=== PATIENT | female | born 1990 | race Caucasian/White ===

== ENCOUNTER → 2016-10-12 | Outpatient (CLI) | payer OTHER, BC ==
[2016-10-12 12:57] LABS: Basophils % (A) 1 %; CH 28.1; CHCM 34.5; Eosinophils # (A) 0.1 k/uL (0-0.7); Eosinophils % (A) 1 %; HCT 38.5 % (34.0-46.0); HDW 2.89; HGB 13.3 gm/dL (11.4-16.0); Luc # (Auto) 0.22; Luc % (Auto) 3; Lymphocytes # (A) 2.4 k/uL (1.0-4.8); Lymphocytes % (A) 35 %; MCH 28.1 pg (25.0-35.0); MCHC 34.4 g/dL (31.0-37.0); MCV 81.6 fL (80.0-100.0); Mean Platelet Volume 7.1; Monocytes # (A) 0.4 k/uL (0-1.0); Monocytes % (A) 5 %; Neutrophils # (A) 3.8 k/uL (1.3-7.7); Neutrophils % (A) 55 %; RBC 4.72 m/uL (3.80-5.40); RDW 13.4 % (11.5-15.5); WBC 6.9 k/uL (3.8-10.6); WBC (Perox) 6.96
[2016-10-12 13:51] LABS: C Reactive Protein 9.3 mg/L (<10.0)
[2016-10-12 14:11] LABS: Erythrocyte Sedimentation Rate 8 mm/hr (0-20)
[2016-10-12 19:35] LABS: ANA w/Reflex to Titer NEGATIVE (NEGATIVE)
[2016-10-13 04:06] LABS: Lyme Antibodies Total(IgG/IgM) 0.07 (<0.90)
[2016-10-13 15:48] LABS: C-ANCA <1:20 Titer (<1:20); P-ANCA <1:20 Titer (<1:20)
== END | disposition home or self-care (01) ==
LOC: LABWHC1 12:27
PROVIDERS: ATTEND Otolaryngology
DX: R51 Headache (principal); R53.83 Other fatigue; M54.2 Cervicalgia
CPT/HCPCS: 36415; 82306; 84439; 84443; 85025; 85652; 86038; 86140; 86255; 86618

== ENCOUNTER 2017-12-06 20:58 | Emergency (ER) | payer BC ==
[2017-12-06 21:16] VITALS: RESP 18
[2017-12-06] MEDS ORDERED: SODIUM CHLORIDE 0.9% 1,000 ML IV STA (21:49)
[2017-12-06] MEDS ORDERED: PANTOPRAZOLE 40 MG/10 ML VIAL IVP STA (21:55)
[2017-12-06] MEDS ORDERED: diphenhydrAMINE 50 MG/ML 1 ML VIAL IVP STA (21:55)
[2017-12-06] MEDS ORDERED: METOCLOPRAMIDE 5 MG/ML 2 ML VIAL IVP STA (21:55)
[2017-12-06] MEDS ORDERED: LORazepam 2 MG/ML INJ IV STA (21:59)
[2017-12-06] MEDS ORDERED: RX INFO: IV CONTRAST WAS GIVEN 1 EACH MISC MISCELLANE PRN (21:59)
--- NOTE | 2017-12-06 22:11 | ED ---
General Adult HPI - General Chief complaint: Dizziness Stated complaint: post op complications Time Seen by Provider: 12/06/17 21:18 Source: patient, RN notes reviewed, old records reviewed Mode of arrival: ambulatory Limitations: no limitations - History of Present Illness Initial comments: This is a 27-year-old female the ER with multiple complaints. Multiple nonspecific complaints stemming from recent surgery. 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 Patient is having increased worsening symptoms, surgery was about a week and 2:30 weeks ago. She is having difficulties with pain medications bowel movements anorexia decreased appetite since discharge. Patient resents ER today for evaluation of worsening vertigo worsening dizziness, ears ringing. - Related Data Home Medications Medication Instructions Recorded Confirmed ALPRAZolam [Xanax] 0.5 mg PO TID PRN 12/06/17 12/06/17 Cyclobenzaprine [Flexeril] 10 mg PO Q8H 12/06/17 12/06/17 Ibuprofen [Motrin] 800 mg PO TID PRN 12/06/17 12/06/17 Melatonin 5 mg PO HS PRN 12/06/17 12/06/17 Ondansetron [Zofran ODT] 8 mg PO Q8HR PRN 12/06/17 12/06/17 oxyCODONE-APAP 5-325MG [Percocet 1 tab PO Q4HR PRN 12/06/17 12/06/17 5-325 mg] Allergies Allergy/AdvReac Type Severity Reaction Status Date / Time erythromycin base Allergy Rash/Hives Verified 12/06/17 21:45 sulfamethoxazole Allergy Unknown Verified 12/06/17 21:45 [From Bactrim] trimethoprim [From Bactrim] Allergy Unknown Verified 12/06/17 21:45 hydrocodone bitartrate AdvReac Nausea & Verified 12/06/17 21:45 [From Vicodin] Vomiting Review of Systems ROS Statement: Those systems with pertinent positive or pertinent negative responses have been documented in the HPI. ROS Other: All systems not noted in ROS Statement are negative. Past Medical History Additional Past Medical History / Comment(s): chronic sinusitis History of Any Multi-Drug Resistant Organisms: None Reported Past Surgical History: Tonsillectomy Additional Past Surgical History / Comment(s): benign melanoma removed Past Psychological History: Anxiety Smoking Status: Never smoker Past Alcohol Use History: None Reported Past Drug Use History: None Reported General Exam Limitations: no limitations General appearance: alert, in no apparent distress Head exam: Present: atraumatic, normocephalic, normal inspection Eye exam: Present: normal appearance, PERRL, EOMI. Absent: scleral icterus, conjunctival injection, periorbital swelling ENT exam: Present: normal exam, mucous membranes moist Neck exam: Present: normal inspection. Absent: tenderness, meningismus, lymphadenopathy Respiratory exam: Present: normal lung sounds bilaterally. Absent: respiratory distress, wheezes, rales, rhonchi, stridor Cardiovascular Exam: Present: normal rhythm, tachycardia, normal heart sounds. Absent: systolic murmur, diastolic murmur, rubs, gallop, clicks GI/Abdominal exam: Present: soft, normal bowel sounds. Absent: distended, tenderness, guarding, rebound, rigid Extremities exam: Present: normal inspection, full ROM, normal capillary refill. Absent: tenderness, pedal edema, joint swelling, calf tenderness Back exam: Present: normal inspection Neurological exam: Present: alert, oriented X3, CN II-XII intact Psychiatric exam: Present: normal affect, normal mood Skin exam: Present: warm, dry, intact, normal color. Absent: rash Course Vital Signs 12/06/17 12/06/17 21:13 23:33 Temperature 98 F Pulse Rate 130 H 90 Respiratory 18 18 Rate Blood Pressure 97/75 102/64 O2 Sat by Pulse 98 100 Oximetry EKG Findings - EKG Comments: EKG Findings:: EKG shows normal sinus rhythm rate 99, [place] 120, QRS 70, QTc 472 Medical Decision Making - Lab Data Result diagrams: 12/06/17 22:06 12/06/17 22:06 Lab Results 12/06/17 12/06/17 12/06/17 Range/Units 22:06 22:06 22:06 WBC 14.0 H (3.8-10.6) k/uL RBC 5.05 (3.80-5.40) m/uL Hgb 14.1 (11.4-16.0) gm/dL Hct 42.1 (34.0-46.0) % MCV 83.4 (80.0-100.0) fL MCH 28.0 (25.0-35.0) pg MCHC 33.6 (31.0-37.0) g/dL RDW 13.3 (11.5-15.5) % Plt Count 301 (150-450) k/uL Neutrophils % 65 % Lymphocytes % 25 % Monocytes % 6 % Eosinophils % 2 % Basophils % 0 % Neutrophils # 9.1 H (1.3-7.7) k/uL Lymphocytes # 3.5 (1.0-4.8) k/uL Monocytes # 0.8 (0-1.0) k/uL Eosinophils # 0.3 (0-0.7) k/uL Basophils # 0.1 (0-0.2) k/uL PT (9.0-12.0) sec INR (<1.2) APTT (22.0-30.0) sec Sodium 139 (137-145) mmol/L Potassium 4.7 (3.5-5.1) mmol/L Chloride 97 L (98-107) mmol/L Carbon Dioxide 27 (22-30) mmol/L Anion Gap 15 mmol/L BUN 16 (7-17) mg/dL Creatinine 0.86 (0.52-1.04) mg/dL Est GFR (CKD-EPI)AfAm >90 (>60 ml/min/1.73 sqM) Est GFR (CKD-EPI)NonAf >90 (>60 ml/min/1.73 sqM) Glucose 89 (74-99) mg/dL Calcium 10.5 H (8.4-10.2) mg/dL Phosphorus 4.3 (2.5-4.5) mg/dL Magnesium 1.9 (1.6-2.3) mg/dL Total Bilirubin 0.4 (0.2-1.3) mg/dL AST 13 L (14-36) U/L ALT 29 (9-52) U/L Alkaline Phosphatase 74 (38-126) U/L Total Creatine Kinase 23 L (30-135) U/L CK-MB (CK-2) <0.2 (0.0-2.4) ng/mL CK-MB (CK-2) Rel Index Troponin I <0.012 (0.000-0.034) ng/mL Total Protein 7.7 (6.3-8.2) g/dL Albumin 4.5 (3.5-5.0) g/dL Urine Color Urine Appearance (Clear) Urine pH (5.0-8.0) Ur Specific [place] (1.001-1.035) Urine Protein (Negative) Urine Glucose (UA) (Negative) Urine Ketones (Negative) Urine Blood (Negative) Urine Nitrite (Negative) Urine Bilirubin (Negative) Urine Urobilinogen (<2.0) mg/dL Ur Leukocyte Esterase (Negative) 12/06/17 12/06/17 Range/Units 22:06 22:06 WBC (3.8-10.6) k/uL RBC (3.80-5.40) m/uL Hgb (11.4-16.0) gm/dL Hct (34.0-46.0) % MCV (80.0-100.0) fL MCH (25.0-35.0) pg MCHC (31.0-37.0) g/dL RDW (11.5-15.5) % Plt Count (150-450) k/uL Neutrophils % % Lymphocytes % % Monocytes % % Eosinophils % % Basophils % % Neutrophils # (1.3-7.7) k/uL Lymphocytes # (1.0-4.8) k/uL Monocytes # (0-1.0) k/uL Eosinophils # (0-0.7) k/uL Basophils # (0-0.2) k/uL PT 9.8 (9.0-12.0) sec INR 1.0 (<1.2) APTT 24.8 (22.0-30.0) sec Sodium (137-145) mmol/L Potassium (3.5-5.1) mmol/L Chloride (98-107) mmol/L Carbon Dioxide (22-30) mmol/L Anion Gap mmol/L BUN (7-17) mg/dL Creatinine (0.52-1.04) mg/dL Est GFR (CKD-EPI)AfAm (>60 ml/min/1.73 sqM) Est GFR (CKD-EPI)NonAf (>60 ml/min/1.73 sqM) Glucose (74-99) mg/dL Calcium (8.4-10.2) mg/dL Phosphorus (2.5-4.5) mg/dL Magnesium (1.6-2.3) mg/dL Total Bilirubin (0.2-1.3) mg/dL AST (14-36) U/L ALT (9-52) U/L Alkaline Phosphatase (38-126) U/L Total Creatine Kinase (30-135) U/L CK-MB (CK-2) (0.0-2.4) ng/mL CK-MB (CK-2) Rel Index Troponin I (0.000-0.034) ng/mL Total Protein (6.3-8.2) g/dL Albumin (3.5-5.0) g/dL Urine Color Light Yellow Urine Appearance Clear (Clear) Urine pH 7.5 (5.0-8.0) Ur Specific [place] 1.006 (1.001-1.035) Urine Protein Negative (Negative) Urine Glucose (UA) Negative (Negative) Urine Ketones Negative (Negative) Urine Blood Negative (Negative) Urine Nitrite Negative (Negative) Urine Bilirubin Negative (Negative) Urine Urobilinogen <2.0 (<2.0) mg/dL Ur Leukocyte Esterase Negative (Negative) Disposition Clinical Impression: Anxiety, Dizziness, Nausea & vomiting Disposition: HOME SELF-CARE Condition: Good Instructions: Dizziness (ED), Acute Nausea and Vomiting (ED) Is patient prescribed a controlled substance at d/c from ED?: No Referrals: Rogers Mcdonald DO [Primary Care Provider] - 1-2 days
[2017-12-06 22:19] LABS: Basophils # (A) 0.1 k/uL (0-0.2); Basophils % (A) 0 %; Eosinophils # (A) 0.3 k/uL (0-0.7); Eosinophils % (A) 2 %; HCT 42.1 % (34.0-46.0); HGB 14.1 gm/dL (11.4-16.0); Lymphocytes # (A) 3.5 k/uL (1.0-4.8); Lymphocytes % (A) 25 %; MCHC 33.6 g/dL (31.0-37.0); MCV 83.4 fL (80.0-100.0); Mean Platelet Volume 7.1; Monocytes # (A) 0.8 k/uL (0-1.0); Monocytes % (A) 6 %; Neutrophils # (A) 9.1 k/uL (1.3-7.7); Neutrophils % (A) 65 %; Platelet Count 301 k/uL (150-450); RBC 5.05 m/uL (3.80-5.40); RDW 13.3 % (11.5-15.5)
[2017-12-06 22:20] LABS: Appearance,Urine Clear (Clear); Bilirubin,Urine Negative (Negative); Blood,Urine Negative (Negative); Color,Urine Light Yellow; Glucose,Urine (UA) Negative (Negative); Ketones,Urine Negative (Negative); Leukocyte Esterase,Urine Negative (Negative); Nitrite,Urine Negative (Negative); PH, Urine 7.5 (5.0-8.0); Protein,Urine Negative (Negative); Specific Gravity,Urine 1.006 (1.001-1.035); Urobilinogen,Urine <2.0 mg/dL (<2.0)
[2017-12-06 22:30] LABS: Partial Thromboplastin Time 24.8 sec (22.0-30.0); Prothrombin Time 9.8 sec (9.0-12.0)
[2017-12-06 22:47] LABS: Creatine Kinase 23 U/L (30-135)
[2017-12-06 22:49] LABS: ALT 29 U/L (9-52); AST 13 U/L (14-36); Albumin 4.5 g/dL (3.5-5.0); Alkaline Phosphatase 74 U/L (38-126); Anion Gap 15 mmol/L; Blood Urea Nitrogen 16 mg/dL (7-17); Calcium 10.5 mg/dL (8.4-10.2); Carbon Dioxide 27 mmol/L (22-30); Chloride 97 mmol/L (98-107); Glucose 89 mg/dL (74-99); Magnesium 1.9 mg/dL (1.6-2.3); Phosphorus 4.3 mg/dL (2.5-4.5); Potassium 4.7 mmol/L (3.5-5.1); Sodium 139 mmol/L (137-145); Total Bilirubin 0.4 mg/dL (0.2-1.3); Total Protein 7.7 g/dL (6.3-8.2)
[2017-12-06 23:00] LABS: Creatine Kinase MB <0.2 ng/mL (0.0-2.4); Troponin I <0.012 ng/mL (0.000-0.034)
[2017-12-06] MEDS ORDERED: MORPHINE SULFATE 4 MG/ML SYRINGE IVP STA (23:13)
[2017-12-06 23:34] VITALS: PULSE 90
[2017-12-06] MEDS ORDERED: PROCHLORPERAZINE 10 MG TAB PO STA (23:44)
--- NOTE | 2017-12-07 | CT ---
EXAMINATION TYPE: CT angio head neck DATE OF EXAM: 12/06/2017 HISTORY: Post op changes for chiari malformation surgery. Head pressure and dizziness. COMPARISON: NONE CT DLP: 337.2 mGycm. Automated Exposure Control for Dose Reduction was Utilized. TECHNIQUE: CTA scan of the neck is performed with IV Contrast, patient injected with 65 mL of Isovue 370, axial images are obtained, coronal and sagittal reformatted images are reviewed. Three-D recons tructed images are created on an independent workstation and reviewed. FINDINGS: There is normal branching pattern of the great vessels on the aortic arch. There is bilateral arteria l flow in the vertebral arteries. There is arterial flow in the common internal and external carotid arteries bilaterally. The carotid artery bifurcations appear widely patent. There is occipital cranio peterson defect noted. There is arterial flow in the anterior middle and posterior cerebral arteries. There is no sign of an eurysm or neovascularity. There is normal contrast opacification of the venous sinuses. I see no evid ence of spasm. Impression normal CT angiogram of the neck. Normal CT angiogram of the brain.
--- NOTE | 2017-12-07 00:02 | CT ---
EXAMINATION TYPE: CT brain wo con DATE OF EXAM: 12/06/2017 COMPARISON: 05/09/2017 HISTORY: Post op changes for chiari malformation surgery. Head pressure and dizziness. CT DLP: 1047.2 mGycm. Automated Exposure Control for Dose Reduction was Utilized. TECHNIQUE: CT scan of the head is performed without contrast. FINDINGS: Ventricles and sulci appear normal. There is no mass effect nor midline shift. There is n o sign of intracranial hemorrhage. There is occipital craniotomy defect noted at the foramen magnum. There is no evidence of cerebral edema. IMPRESSION: Negative CT scan of the brain.
[2017-12-07 00:17] VITALS: BP 104/70; TEMP 98.5
== END 2017-12-07 00:30 | disposition home or self-care (01) ==
LOC: EC 20:58
DX: F41.9 Anxiety disorder, unspecified (principal); R42 Dizziness and giddiness; R11.2 Nausea with vomiting, unspecified; R00.0 Tachycardia, unspecified; H93.13 Tinnitus, bilateral; R63.0 Anorexia; Z79.899 Other long term (current) drug therapy; Z88.1 Allergy status to other antibiotic agents; Z88.5 Allergy status to narcotic agent; Z98.890 Other specified postprocedural states
CPT/HCPCS: 36415; 93005; 80053; 82550; 82553; 83735; 84100; 84484; 85025; 85610; 85730; 81003; 87086; 70496; 70450; 70498; 99285; 96374; 96375 ×4; 96361; S0183; J2060; J2270; J1200; J2765; C9113; Q9967

== ENCOUNTER 2018-03-26 13:25 | Observation (INO) | payer BC ==
[2018-03-26] MEDS ORDERED: ACETAMINOPHEN TAB 500 MG TAB PO STA (13:54)
[2018-03-26] MEDS ORDERED: IBUPROFEN 600 MG TAB PO STA (13:54)
[2018-03-26] MEDS ORDERED: IPRATROPIUM-ALBUTEROL 3 ML NEB INHALATION STA (13:54)
--- NOTE | 2018-03-26 13:57 | ED ---
General Adult HPI - General Chief complaint: Shortness of Breath Stated complaint: Tachycardia Time Seen by Provider: 03/26/18 13:49 Source: patient, EMS, RN notes reviewed Mode of arrival: EMS Limitations: no limitations - History of Present Illness Initial comments: Patient is a pleasant 27-year-old female presenting to the emergency department with cough and fever. Patient has had sinus drainage and minimal cough for the past several weeks. Patient started having more cough and fevers 2 days ago. Patient does have occasional green sputum. Patient does feel mildly short of breath. No leg pain or leg swelling. Patient has some discomfort near the diaphragm only with cough and she attributes this to her persistent cough. Patient did have surgery for Arnold-Chiari malformation several months ago. - Related Data Home Medications Medication Instructions Recorded Confirmed ALPRAZolam [Xanax] 0.5 mg PO TID PRN 12/06/17 03/26/18 Eucalyptus Oil/Menthol/Camphor 50 gm TOPICAL DAILY 03/26/18 03/26/18 [Vicks Vaporub Ointment] Fexofenadine HCl [Sarina Allergy] 60 mg PO BID 03/26/18 03/26/18 Fluticasone Nasal [place] [Flonase 1 spray EA NOSTRIL DAILY 03/26/18 03/26/18 Nasal [place]] Ibuprofen/Pseudoephedrine HCl 1 tab PO DAILY 03/26/18 03/26/18 [Advil Cold & Sinus Caplet] Multivitamins, Thera [Multivitamin 1 tab PO DAILY 03/26/18 03/26/18 (formulary)] diphenhydrAMINE [Benadryl] 25 mg PO DAILY PRN 03/26/18 03/26/18 Allergies Allergy/AdvReac Type Severity Reaction Status Date / Time erythromycin base Allergy Rash/Hives Verified 03/26/18 13:59 sulfamethoxazole Allergy Unknown Verified 03/26/18 13:59 [From Bactrim] trimethoprim [From Bactrim] Allergy Unknown Verified 03/26/18 13:59 hydrocodone bitartrate AdvReac Nausea & Verified 03/26/18 13:59 [From Vicodin] Vomiting Review of Systems ROS Statement: Those systems with pertinent positive or pertinent negative responses have been documented in the HPI. ROS Other: All systems not noted in ROS Statement are negative. Constitutional: Reports: fever Eyes: Denies: eye pain ENT: Reports: congestion. Denies: ear pain Respiratory: Reports: cough, dyspnea Cardiovascular: Denies: palpitations Endocrine: Reports: fatigue Gastrointestinal: Denies: vomiting Genitourinary: Denies: dysuria Musculoskeletal: Denies: back pain Skin: Denies: rash Neurological: Denies: weakness Past Medical History Additional Past Medical History / Comment(s): chronic sinusitis, chiari History of Any Multi-Drug Resistant Organisms: None Reported Past Surgical History: Tonsillectomy Additional Past Surgical History / Comment(s): benign melanoma removed Past Psychological History: Anxiety Smoking Status: Never smoker Past Alcohol Use History: None Reported Past Drug Use History: None Reported General Exam Limitations: no limitations General appearance: alert, in no apparent distress Head exam: Present: atraumatic Eye exam: Present: normal appearance, PERRL ENT exam: Present: normal oropharynx, other (Tenderness to the maxillary sinus) Neck exam: Present: other (Posterior upper neck incision clean and dry and intact.) Respiratory exam: Present: rhonchi Cardiovascular Exam: Present: tachycardia GI/Abdominal exam: Present: soft. Absent: tenderness Extremities exam: Present: normal inspection. Absent: pedal edema, calf tenderness Back exam: Present: normal inspection Neurological exam: Present: alert Psychiatric exam: Present: normal affect, normal mood Skin exam: Present: normal color Course Vital Signs 03/26/18 03/26/18 03/26/18 13:26 14:11 14:19 Temperature 101 F H Pulse Rate 123 H 120 H 124 H Respiratory 20 Rate Blood Pressure 127/68 O2 Sat by Pulse 95 Oximetry 03/26/18 15:25 Temperature 99.3 F Pulse Rate 115 H Respiratory 18 Rate Blood Pressure 112/69 O2 Sat by Pulse 99 Oximetry - Reevaluation(s) Reevaluation #1: 03/26/18 15:52 Patient does meet sepsis criteria diagnosed at 1552. Blood culture and lactic acid and IV antibiotics have been ordered. EKG Findings - EKG Comments: EKG Findings:: Sinus tachycardia 123. VA 100. QRS 94. QT 320. QTc 458. Normal axis. Incomplete right bundle branch block. No acute ST change. Medical Decision Making - Medical Decision Making Patient reevaluated and resting comfortably in bed. Heart rate has improved to 1:15. Patient family updated on results and plan. Case was discussed with Dr. patiño, who will admit for Dr. Gilliam - Lab Data Result diagrams: 03/26/18 02:00 03/26/18 02:00 Lab Results 03/26/18 03/26/18 03/26/18 Range/Units 02:00 02:00 02:00 WBC 10.5 (3.8-10.6) k/uL RBC 4.89 (3.80-5.40) m/uL Hgb 13.3 (11.4-16.0) gm/dL Hct 39.4 (34.0-46.0) % MCV 80.6 (80.0-100.0) fL MCH 27.3 (25.0-35.0) pg MCHC 33.9 (31.0-37.0) g/dL RDW 14.2 (11.5-15.5) % Plt Count 253 (150-450) k/uL Neutrophils % 84 % Lymphocytes % 9 % Monocytes % 4 % Eosinophils % 2 % Basophils % 0 % Neutrophils # 8.9 H (1.3-7.7) k/uL Lymphocytes # 0.9 L (1.0-4.8) k/uL Monocytes # 0.4 (0-1.0) k/uL Eosinophils # 0.2 (0-0.7) k/uL Basophils # 0.0 (0-0.2) k/uL PT 10.2 (9.0-12.0) sec INR 1.0 (<1.2) APTT 26.8 (22.0-30.0) sec D-Dimer 0.69 H (<0.60) mg/L FEU Sodium 139 (137-145) mmol/L Potassium 4.3 (3.5-5.1) mmol/L Chloride 105 (98-107) mmol/L Carbon Dioxide 23 (22-30) mmol/L Anion Gap 11 mmol/L BUN 7 (7-17) mg/dL Creatinine 0.63 (0.52-1.04) mg/dL Est GFR (CKD-EPI)AfAm >90 (>60 ml/min/1.73 sqM) Est GFR (CKD-EPI)NonAf >90 (>60 ml/min/1.73 sqM) Glucose 90 (74-99) mg/dL POC Glucose (mg/dL) (75-99) mg/dL POC Glu Flame Cutting Supervisor ID Plasma Lactic Acid Nikolai (0.7-2.0) mmol/L Calcium 9.3 (8.4-10.2) mg/dL Total Bilirubin 0.4 (0.2-1.3) mg/dL AST 14 (14-36) U/L ALT 35 (9-52) U/L Alkaline Phosphatase 80 (38-126) U/L Total Protein 7.6 (6.3-8.2) g/dL Albumin 4.3 (3.5-5.0) g/dL 03/26/18 03/26/18 Range/Units 02:00 14:44 WBC (3.8-10.6) k/uL RBC (3.80-5.40) m/uL Hgb (11.4-16.0) gm/dL Hct (34.0-46.0) % MCV (80.0-100.0) fL MCH (25.0-35.0) pg MCHC (31.0-37.0) g/dL RDW (11.5-15.5) % Plt Count (150-450) k/uL Neutrophils % % Lymphocytes % % Monocytes % % Eosinophils % % Basophils % % Neutrophils # (1.3-7.7) k/uL Lymphocytes # (1.0-4.8) k/uL Monocytes # (0-1.0) k/uL Eosinophils # (0-0.7) k/uL Basophils # (0-0.2) k/uL PT (9.0-12.0) sec INR (<1.2) APTT (22.0-30.0) sec D-Dimer (<0.60) mg/L FEU Sodium (137-145) mmol/L Potassium (3.5-5.1) mmol/L Chloride (98-107) mmol/L Carbon Dioxide (22-30) mmol/L Anion Gap mmol/L BUN (7-17) mg/dL Creatinine (0.52-1.04) mg/dL Est GFR (CKD-EPI)AfAm (>60 ml/min/1.73 sqM) Est GFR (CKD-EPI)NonAf (>60 ml/min/1.73 sqM) Glucose (74-99) mg/dL POC Glucose (mg/dL) 99 (75-99) mg/dL POC Glu Flame Cutting Supervisor Mauro Ni Plasma Lactic Acid Nioklai 1.0 (0.7-2.0) mmol/L Calcium (8.4-10.2) mg/dL Total Bilirubin (0.2-1.3) mg/dL AST (14-36) U/L ALT (9-52) U/L Alkaline Phosphatase (38-126) U/L Total Protein (6.3-8.2) g/dL Albumin (3.5-5.0) g/dL - Radiology Data Radiology results: report reviewed (Computed tomography scan of the chest shows no pulmonary embolism. There is mediastinal and bronchial adenopathy. Possible sarcoid. Mild reticular nodular left upper lobe infiltrate.) Critical Care Time Critical Care Time: Yes Total Critical Care Time: 33 Disposition Clinical Impression: Pneumonia, Sepsis Disposition: ADMITTED IP TO THIS HOSP Is patient prescribed a controlled substance at d/c from ED?: No Referrals: Rogers Mcdonald DO [Primary Care Provider] - 1-2 days Decision Time: 15:52
[2018-03-26] MEDS: SODIUM CHLORIDE 0.9% 500 ML IV SCH ×2 (14:02→14:05)
[2018-03-26 14:04] LABS: Basophils % (A) 0 %; Eosinophils # (A) 0.2 k/uL (0-0.7); Eosinophils % (A) 2 %; HCT 39.4 % (34.0-46.0); HGB 13.3 gm/dL (11.4-16.0); Lymphocytes # (A) 0.9 k/uL (1.0-4.8); Lymphocytes % (A) 9 %; MCH 27.3 pg (25.0-35.0); MCHC 33.9 g/dL (31.0-37.0); MCV 80.6 fL (80.0-100.0); Mean Platelet Volume 7.1; Monocytes # (A) 0.4 k/uL (0-1.0); Monocytes % (A) 4 %; Neutrophils # (A) 8.9 k/uL (1.3-7.7); Neutrophils % (A) 84 %; Platelet Count 253 k/uL (150-450); RBC 4.89 m/uL (3.80-5.40); RDW 14.2 % (11.5-15.5); WBC 10.5 k/uL (3.8-10.6)
[2018-03-26 14:14] LABS: ALT 35 U/L (9-52); AST 14 U/L (14-36); Albumin 4.3 g/dL (3.5-5.0); Alkaline Phosphatase 80 U/L (38-126); Anion Gap 11 mmol/L; Blood Urea Nitrogen 7 mg/dL (7-17); Calcium 9.3 mg/dL (8.4-10.2); Carbon Dioxide 23 mmol/L (22-30); Chloride 105 mmol/L (98-107); Glucose 90 mg/dL (74-99); Potassium 4.3 mmol/L (3.5-5.1); Sodium 139 mmol/L (137-145); Total Bilirubin 0.4 mg/dL (0.2-1.3); Total Protein 7.6 g/dL (6.3-8.2)
[2018-03-26 14:25] LABS: Partial Thromboplastin Time 26.8 sec (22.0-30.0); Prothrombin Time 10.2 sec (9.0-12.0)
[2018-03-26 14:43] LABS: D-Dimer 0.69 mg/L FEU (<0.60)
[2018-03-26 14:48] LABS: Glucose,Whole Blood 99 mg/dL (75-99)
--- NOTE | 2018-03-26 15:35 | CT ---
EXAMINATION TYPE: CT angio chest DATE OF EXAM: 03/26/2018 3:22 PM COMPARISON: HISTORY: tachycardia CT DLP: 377.6 mGycm Automated exposure control for dose reduction was used. CONTRAST: CTA scan of the thorax is performed with IV Contrast, patient injected with 100mL mL of Isovue 370, p ulmonary embolism protocol. There are 3-D post processed images.. FINDINGS: There is some nodular 3 cm patch of infiltrate in the left upper lobe. There is no evidence of a pulm onary mass. There is no pleural effusion. Heart size is normal. There is no pericardial effusion. Tho racic aorta appears normal. There is no evidence of aneurysm or dissection. I see no filling defects in the pulmonary arteries. There are some mediastinal and bronchial lymph nodes measure up to 2 cm. The bony thorax is intact. There is no sign of axillary adenopathy. IMPRESSION: NO EVIDENCE OF PULMONARY EMBOLISM. MILD MEDIASTINAL AND BRONCHIAL ADENOPATHY. THIS COULD RELATE TO SA RCOIDOSIS. THERE IS A MILD RETICULAR NODULAR LEFT UPPER LOBE PULMONARY INFILTRATE.
[2018-03-26] MEDS ORDERED: PNEUMONIA PROTOCOL UTILIZED 1 EACH MISC PO PRN (15:53)
[2018-03-26] MEDS ORDERED: LEVOFLOXACIN 750MG-D5W PMX 750 MG in DEXTROSE/WATER 1 150ML.BAG IVPB STA (15:53)
[2018-03-26 16:13] LABS: Amorphous Sediment,Urine Rare /hpf; Appearance,Urine Clear (Clear); Bacteria,Urine Few /hpf; Bilirubin,Urine Negative (Negative); Blood,Urine Trace (Negative); Color,Urine Yellow; Glucose,Urine (UA) Negative (Negative); Ketones,Urine Trace (Negative); Leukocyte Esterase,Urine Negative (Negative); Mucus,Urine Rare /hpf; Nitrite,Urine Negative (Negative); PH, Urine 6.5 (5.0-8.0); Protein,Urine Negative (Negative); RBC,Urine 1 /hpf (0-5); Squamous Epithelial Cell,Urine 6 /hpf (0-4); Urobilinogen,Urine <2.0 mg/dL (<2.0); WBC,Urine 1 /hpf (0-5)
[2018-03-26] MEDS: SODIUM CHLORIDE 0.9% 1,000 ML IV SCH (16:14)
[2018-03-26 16:46] VITALS: BMI 36.6
--- NOTE | 2018-03-26 17:18 | P.HPIM ---
History of Present Illness This is a pleasant 27 years old female with past medical history of chronic sinusitis, GERD surgery at [facility] on last November. Presents because of cough and fever. 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 And associated with chest pain that is central, describe it as dull comes mainly with coughing mild to moderate in severity. Patient not really dyspneic and she is saturating 100% on 2 L oxygen via nasal cannula In the emergency room patient was noted to be tachycardic at 120, fever at 101. With no leukocytosis and WBC at 10.5 K. Rest of the CBC and BMP was unremarkable. UA was not suggestive of infection and she had elevated d-dimer. With computed tomography scan of the chest with angiogram showing no PE with 3 cm left upper lobe infiltrate. With mediastinal lymphadenopathy up to 2 cm. Suspicious for sarcoidosis as per radiology report. In the emergency room patient was got IV fluids and was started on Levaquin antibiotic. Review of Systems CONSTITUTIONAL: No fever, no malaise, no fatigue. HEENT: No recent visual problems or hearing problems. Denied any sore throat. CARDIOVASCULAR: No orthopnea, PND, no palpitations, no syncope. PULMONARY: No shortness of breath, no cough, no hemoptysis. GASTROINTESTINAL: No diarrhea, no nausea, no vomiting, no abdominal pain. Normoactive bowel sounds. NEUROLOGICAL: No headaches, no weakness, no numbness. HEMATOLOGICAL: Denies any bleeding or petechiae. GENITOURINARY: Denies any burning micturition, frequency, or urgency. MUSCULOSKELETAL/RHEUMATOLOGICAL: Denies any joint pain, swelling, or any muscle pain. ENDOCRINE: Denies any polyuria or polydipsia. Past Medical History Additional Past Medical History / Comment(s): chronic sinusitis, chiari History of Any Multi-Drug Resistant Organisms: None Reported Past Surgical History: Tonsillectomy Additional Past Surgical History / Comment(s): benign melanoma removed. Chiari surgery in November at [place] Past Anesthesia/Blood Transfusion Reactions: No Reported Reaction Past Psychological History: Anxiety Smoking Status: Never smoker Past Alcohol Use History: None Reported Past Drug Use History: None Reported - Past Family History Mother Family Medical History: No Reported History Father Family Medical History: No Reported History Medications and Allergies Home Medications Medication Instructions Recorded Confirmed Type ALPRAZolam [Xanax] 0.5 mg PO TID PRN 12/06/17 03/26/18 History Eucalyptus Oil/Menthol/Camphor 50 gm TOPICAL DAILY 03/26/18 03/26/18 History [Vicks Vaporub Ointment] Fexofenadine HCl [Sarina Allergy] 60 mg PO BID 03/26/18 03/26/18 History Fluticasone Nasal [place] [Flonase 1 spray EA NOSTRIL DAILY 03/26/18 03/26/18 History Nasal [place]] Ibuprofen/Pseudoephedrine HCl 1 tab PO DAILY 03/26/18 03/26/18 History [Advil Cold & Sinus Caplet] Multivitamins, Thera [Multivitamin 1 tab PO DAILY 03/26/18 03/26/18 History (formulary)] diphenhydrAMINE [Benadryl] 25 mg PO DAILY PRN 03/26/18 03/26/18 History Allergies Allergy/AdvReac Type Severity Reaction Status Date / Time sulfamethoxazole Allergy Severe mouth sores Verified 03/26/18 16:51 [From Bactrim] trimethoprim [From Bactrim] Allergy Severe mouth sores Verified 03/26/18 16:51 erythromycin base Allergy Unknown Rash/Hives Verified 03/26/18 16:51 amoxicillin [From Augmentin] AdvReac Severe Abdominal Verified 03/26/18 16:51 Pain clavulanic acid AdvReac Severe Abdominal Verified 03/26/18 16:51 [From Augmentin] Pain hydrocodone bitartrate AdvReac Severe Nausea & Verified 03/26/18 16:51 [From Vicodin] Vomiting promethazine [From Phenergan] AdvReac Intermediate Abdominal Verified 03/26/18 16:51 Pain Physical Exam Vitals: Vital Signs Temp Pulse Pulse Resp BP BP Pulse Ox 03/26/18 16:47 98.6 F 104 H 18 113/70 100 03/26/18 16:35 98.3 F 110 H 18 110/80 97 03/26/18 15:25 99.3 F 115 H 18 112/69 99 03/26/18 14:19 124 H 03/26/18 14:11 120 H 03/26/18 13:26 101 F H 123 H 20 127/68 95 Intake and Output 03/26/18 03/26/18 03/26/18 06:59 14:59 22:59 Other: Weight 97.522 kg 99.9 kg GENERAL: The patient is alert and oriented x3, not in any acute distress. Well developed, well nourished. HEENT: Pupils are round and equally reacting to light. EOMI. No scleral icterus. No conjunctival pallor. Normocephalic, atraumatic. No pharyngeal erythema. No thyromegaly. CARDIOVASCULAR: S1 and S2 present. No murmurs, rubs, or gallops. -PULMONARY: Chest is clear to auscultation, no crackles. Left upper scattered wheezing ABDOMEN: Soft, nontender, nondistended, normoactive bowel sounds. No palpable organomegaly. MUSCULOSKELETAL: No joint swelling or deformity. EXTREMITIES: No cyanosis, clubbing, or pedal edema. NEUROLOGICAL: Gross neurological examination did not reveal any focal deficits. SKIN: No rashes. Results CBC & Chem 7: 03/26/18 02:00 03/26/18 02:00 Labs: Abnormal Lab Results - Last 24 Hours (Table) 03/26/18 03/26/18 03/26/18 Range/Units 02:00 02:00 15:10 Neutrophils # 8.9 H (1.3-7.7) k/uL Lymphocytes # 0.9 L (1.0-4.8) k/uL D-Dimer 0.69 H (<0.60) mg/L FEU Urine Ketones Trace H (Negative) Urine Blood Trace H (Negative) Ur Squamous Epith Cells 6 H (0-4) /hpf Amorphous Sediment Rare H (None) /hpf Urine Bacteria Few H (None) /hpf Urine Mucus Rare H (None) /hpf Assessment and Plan Assessment: Community-acquired pneumonia Systemic inflammatory response with fever and tachycardia, 2/4 Sepsis secondary to above Mediastinal lymphadenopathy, suspicious for sarcoidosis History of Chiari surgery Plan: This is a pleasant 27 years old lady who presents because of cough and fever. Continue with same treatment. Continue with symptomatic treatment. Follow-up culture results. Continue with antibiotics and IV fluids. Call pulmonary consult. Resume home medication. Monitor labs and vitals. Influenza swab. sputum culture DVT and GI prophylaxis. Pain management. Further recommendations based on the clinical course of the patient. DVT prophylaxis subcutaneous heparin GI prophylaxis Pepcid Prognosis is guarded Succuss with staff including recommendations
[2018-03-26] MEDS ORDERED: guaiFENesin SYRUP 100MG/5ML 200 MG/10 ML CUP PO PRN (18:07)
[2018-03-26] MEDS: ACETAMINOPHEN TAB 325 MG TAB PO PRN (18:09)
[2018-03-26] MEDS: FAMOTIDINE 20 MG/2 ML VIAL IV SCH (18:47)
[2018-03-26] MEDS: IPRATROPIUM-ALBUTEROL 3 ML NEB INHALATION PRN (20:05)
[2018-03-26] MEDS: LORATADINE 10 MG TAB PO SCH (21:05)
[2018-03-26] MEDS: HEPARIN SODIUM,PORCINE 5,000 UNIT/ML 1 ML VIAL SQ SCH (21:13)
[2018-03-26] MEDS: KETOROLAC 30 MG/ML 1 ML VIAL IVP PRN (23:18)
[2018-03-27] MEDS: guaiFENesin SYRUP 100MG/5ML 200 MG/10 ML CUP PO PRN ×3 (01:18→21:35)
[2018-03-27] MEDS: SODIUM CHLORIDE 0.9% 1,000 ML IV SCH ×2 (03:14→22:10)
[2018-03-27] MEDS: KETOROLAC 30 MG/ML 1 ML VIAL IVP PRN ×3 (05:55→18:06)
[2018-03-27 07:20] LABS: Basophils % (A) 0 %; Eosinophils # (A) 0.2 k/uL (0-0.7); Eosinophils % (A) 4 %; HGB 11.9 gm/dL (11.4-16.0); Lymphocytes # (A) 1.1 k/uL (1.0-4.8); Lymphocytes % (A) 22 %; MCH 26.9 pg (25.0-35.0); MCHC 33.2 g/dL (31.0-37.0); Mean Platelet Volume 7.4; Monocytes # (A) 0.5 k/uL (0-1.0); Monocytes % (A) 9 %; Neutrophils # (A) 3.2 k/uL (1.3-7.7); Neutrophils % (A) 62 %; Platelet Count 228 k/uL (150-450); RBC 4.45 m/uL (3.80-5.40); RDW 14.2 % (11.5-15.5); WBC 5.1 k/uL (3.8-10.6)
[2018-03-27] MEDS: IPRATROPIUM-ALBUTEROL 3 ML NEB INHALATION PRN ×3 (07:32→19:13)
[2018-03-27 07:33] LABS: Anion Gap 10 mmol/L; Blood Urea Nitrogen 6 mg/dL (7-17); Calcium 8.6 mg/dL (8.4-10.2); Carbon Dioxide 21 mmol/L (22-30); Chloride 110 mmol/L (98-107); Glucose 94 mg/dL (74-99); Potassium 4.2 mmol/L (3.5-5.1); Sodium 141 mmol/L (137-145)
[2018-03-27] MEDS: HEPARIN SODIUM,PORCINE 5,000 UNIT/ML 1 ML VIAL SQ SCH ×2 (07:48→20:47)
[2018-03-27] MEDS: FAMOTIDINE 20 MG/2 ML VIAL IV SCH ×2 (07:54→20:46)
[2018-03-27] MEDS: LORATADINE 10 MG TAB PO SCH (07:55)
--- NOTE | 2018-03-27 08:53 | XR ---
EXAMINATION TYPE: XR chest 2V DATE OF EXAM: 03/27/2018 COMPARISON: NONE TECHNIQUE: PA and lateral views submitted. HISTORY: Pneumonia FINDINGS: Left upper lobe area of consolidation noted. Left suprahilar region prominent may represent adenopath y. No pneumothorax. No overt failure or pleural effusion. Heart size normal. IMPRESSION: 1. Left upper lobe infiltrate correlate for hilar adenopathy
[2018-03-27] MEDS: ACETAMINOPHEN TAB 325 MG TAB PO PRN ×3 (09:16→21:35)
[2018-03-27] MEDS ORDERED: ALPRAZolam 0.5 MG TAB PO PRN (12:07)
--- NOTE | 2018-03-27 12:10 | P.CNPUL ---
History of Present Illness Consult date: 03/27/18 Requesting physician: Torsten Rossi Reason for consult: pneumonia Chief complaint: Shortness of breath and rapid heartbeat History of present illness: This is a 27-year-old female with history of Arnold chiari malformation, had surgery at [facility] for her malformation few months ago. Her postoperative course was relatively uneventful. Patient had no specific complications from her surgery. She was seen in the walk-in clinic yesterday with almost few weeks history of cough, nasal congestion, intermittent episodes of headaches, and felt that she was coming down with a cold that seems to have lasted longer than expected. Recently the patient has been spiking fevers, and her temp was 101. Her cough was productive with brownish phlegm, and felt some vague chest discomfort. Described as dull discomfort over the sternal area. This was worse with coughing. Patient was seen in the walk-in clinic and she was noted to be tachycardic, patient was in sinus tachycardia. Her rate was apparently 120 she had a temp of 101, and her WBC count was only 10.5. Patient was sent to the ER, CT angiogram of the chest showed left upper lobe infiltrate , it was noted to be nodular, some nonspecific mediastinal and bronchial lymph nodes were noted hence the differential diagnoses of reactive lymphadenopathy or sarcoidosis was considered, patient was admitted and this consult was initiated. Patient isn't ready feeling slightly better compared to how she felt yesterday, her heart rate seems to be well-controlled. Temp has been 98.4 at maximal and her cough symptoms as well as shortness of breath symptoms are slightly better. Patient had no previous history of sarcoidosis, no previous history of lymphoma, and the only past medical history is significant for her recent surgery back in November for arnold chiari malformation. Presently the patient denies any headaches, no blurred vision, no dizziness, no nausea no vomiting no abdominal pain no melena no hematemesis is no dysuria and no frequency no urgency. In terms of dizziness. Review of Systems 14 point review of systems were obtained, please refer to pertinent positives in HPI, otherwise remaining systems are negative. Past Medical History Additional Past Medical History / Comment(s): chronic sinusitis, chiari History of Any Multi-Drug Resistant Organisms: None Reported Past Surgical History: Tonsillectomy Additional Past Surgical History / Comment(s): benign melanoma removed. Chiari surgery in November at [facility] Past Anesthesia/Blood Transfusion Reactions: No Reported Reaction Past Psychological History: Anxiety Smoking Status: Never smoker Past Alcohol Use History: None Reported Past Drug Use History: None Reported - Past Family History Mother Family Medical History: No Reported History Father Family Medical History: No Reported History Medications and Allergies Home Medications Medication Instructions Recorded Confirmed Type ALPRAZolam [Xanax] 0.5 mg PO TID PRN 12/06/17 03/26/18 History Eucalyptus Oil/Menthol/Camphor 50 gm TOPICAL DAILY 03/26/18 03/26/18 History [Vicks Vaporub Ointment] Fexofenadine HCl [Sarina Allergy] 60 mg PO BID 03/26/18 03/26/18 History Fluticasone Nasal [place] [Flonase 1 spray EA NOSTRIL DAILY 03/26/18 03/26/18 History Nasal [place]] Ibuprofen/Pseudoephedrine HCl 1 tab PO DAILY 03/26/18 03/26/18 History [Advil Cold & Sinus Caplet] Multivitamins, Thera [Multivitamin 1 tab PO DAILY 03/26/18 03/26/18 History (formulary)] diphenhydrAMINE [Benadryl] 25 mg PO DAILY PRN 03/26/18 03/26/18 History Allergies Allergy/AdvReac Type Severity Reaction Status Date / Time sulfamethoxazole Allergy Severe mouth sores Verified 03/26/18 16:51 [From Bactrim] trimethoprim [From Bactrim] Allergy Severe mouth sores Verified 03/26/18 16:51 erythromycin base Allergy Unknown Rash/Hives Verified 03/26/18 16:51 amoxicillin [From Augmentin] AdvReac Severe Abdominal Verified 03/26/18 16:51 Pain clavulanic acid AdvReac Severe Abdominal Verified 03/26/18 16:51 [From Augmentin] Pain hydrocodone bitartrate AdvReac Severe Nausea & Verified 03/26/18 16:51 [From Vicodin] Vomiting dextromethorphan AdvReac Intermediate Abdominal Verified 03/26/18 18:13 Pain promethazine [From Phenergan] AdvReac Intermediate Abdominal Verified 03/26/18 16:51 Pain Physical Exam Vitals: Vital Signs Temp Pulse Pulse Pulse Resp BP BP 03/27/18 08:17 98.3 F 97 16 112/75 03/27/18 07:49 100 03/27/18 07:33 85 03/27/18 06:07 98.4 F 93 16 117/82 03/27/18 00:00 97 97 16 03/26/18 23:00 98.2 F 92 16 102/70 03/26/18 21:00 97.8 F 97 97 16 111/76 03/26/18 20:17 100 03/26/18 20:08 101 H 03/26/18 17:00 104 H 16 03/26/18 16:47 98.6 F 104 H 18 113/70 03/26/18 16:35 98.3 F 110 H 18 110/80 03/26/18 16:30 03/26/18 15:25 99.3 F 115 H 18 112/69 03/26/18 14:19 124 H 03/26/18 14:11 120 H 03/26/18 13:26 101 F H 123 H 20 127/68 Pulse Ox 03/27/18 08:17 97 03/27/18 07:49 03/27/18 07:33 97 03/27/18 06:07 97 03/27/18 00:00 03/26/18 23:00 97 03/26/18 21:00 98 03/26/18 20:17 03/26/18 20:08 03/26/18 17:00 03/26/18 16:47 100 03/26/18 16:35 97 03/26/18 16:30 97 03/26/18 15:25 99 03/26/18 14:19 03/26/18 14:11 03/26/18 13:26 95 Intake and Output 03/26/18 03/27/18 03/27/18 22:59 06:59 14:59 Intake Total 500 500 Balance 500 500 Intake: Oral 500 500 Other: Voiding Method Toilet Toilet # Voids 1 1 1 Weight 99.9 kg Physical Exam: Revealed a 27-year-old female in no distress. Head: Atraumatic, normocephalic. HEENT:[Neck is supple.] [No neck masses.] [No thyromegaly.] [No JVD.] Chest: [Clear throughout, no crackles, no rhonchi, no wheezes.] Cardiac Exam: [Normal S1 and S2, no S3 gallop, no murmur.] Abdomen: [Soft, nontender, no megaly, no rebound, no guarding, normal bowel sounds.] Extremities: [No clubbing, no edema, no cyanosis.] Neurological Exam: [No focal neurologic deficit.] Psychiatric: Normal mood, affect and mental status examination. Lymphatics: No lymphadenopathy. Results - Laboratory Findings CBC and BMP: 03/27/18 06:59 03/27/18 06:59 PT/INR, D-dimer PT 10.2 sec (9.0-12.0) 03/26/18 02:00 INR 1.0 (<1.2) 03/26/18 02:00 D-Dimer 0.69 mg/L FEU (<0.60) H 03/26/18 02:00 Abnormal lab findings: Abnormal Labs 03/26/18 03/26/18 03/26/18 02:00 02:00 15:10 Neutrophils # 8.9 H Lymphocytes # 0.9 L D-Dimer 0.69 H Chloride Carbon Dioxide BUN Urine Ketones Trace H Urine Blood Trace H Ur Squamous Epith Cells 6 H Amorphous Sediment Rare H Urine Bacteria Few H Urine Mucus Rare H 03/27/18 06:59 Neutrophils # Lymphocytes # D-Dimer Chloride 110 H Carbon Dioxide 21 L BUN 6 L Urine Ketones Urine Blood Ur Squamous Epith Cells Amorphous Sediment Urine Bacteria Urine Mucus - Diagnostic Findings Chest x-ray: image reviewed CT scan - chest: image reviewed (As noted in HPI.) Assessment and Plan Assessment: Impression: 1 acute community-acquired pneumonia involving the left upper lobe. 2 reactive lymphadenopathy, however the differential diagnosis still includes sarcoidosis, and remote possibility of lymphoma but this is again felt to be less likely. 3 history of Arnold-chiari malformation surgery back in November. Recommendation: Agree with the present treatment plan including antibiotics, no need for lung biopsy at this point, however would recommend outpatient follow-up , and possibly repeat CT of the chest in 2-3 months. In the meantime I have ordered angiotensin-converting enzyme level, and we will continue to follow. Time with Patient: Greater than 30
--- NOTE | 2018-03-27 12:10 | P.PN ---
Subjective This is a pleasant 27 years old female with past medical history of chronic sinusitis, GERD surgery at [facility] on last November. Presents because of cough and fever. 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 And associated with chest pain that is central, describe it as dull comes mainly with coughing mild to moderate in severity. Patient not really dyspneic and she is saturating 100% on 2 L oxygen via nasal cannula In the emergency room patient was noted to be tachycardic at 120, fever at 101. With no leukocytosis and WBC at 10.5 K. Rest of the CBC and BMP was unremarkable. UA was not suggestive of infection and she had elevated d-dimer. With computed tomography scan of the chest with angiogram showing no PE with 3 cm left upper lobe infiltrate. With mediastinal lymphadenopathy up to 2 cm. Suspicious for sarcoidosis as per radiology report. In the emergency room patient was got IV fluids and was started on Levaquin antibiotic. 03/27/2018 Patient states she feels better but still have chest pain or cough and that smaller in her with secretions. Mild dyspnea and headache is fair but her pain is better controlled with Toradol and Tylenol. Patient continued on IV fluids and Levaquin. She had temperature on admission of 101 Mari she's been afebrile Objective - Vital Signs Vital signs: Vital Signs Temp 98.3 F 03/27/18 08:17 Pulse 97 03/27/18 08:17 Resp 16 03/27/18 08:17 BP 112/75 03/27/18 08:17 Pulse Ox 97 03/27/18 08:17 Intake & Output 03/26/18 03/27/18 03/27/18 18:59 06:59 18:59 Intake Total 500 500 Balance 500 500 Weight 99.9 kg Intake: Oral 500 500 Other: Voiding Method Toilet # Voids 1 1 - Exam GENERAL: The patient is alert and oriented x3, not in any acute distress. Well developed, well nourished. HEENT: Pupils are round and equally reacting to light. EOMI. No scleral icterus. No conjunctival pallor. Normocephalic, atraumatic. No pharyngeal erythema. No thyromegaly. CARDIOVASCULAR: S1 and S2 present. No murmurs, rubs, or gallops. -PULMONARY: Chest is clear to auscultation, no crackles. Left upper scattered wheezing ABDOMEN: Soft, nontender, nondistended, normoactive bowel sounds. No palpable organomegaly. MUSCULOSKELETAL: No joint swelling or deformity. EXTREMITIES: No cyanosis, clubbing, or pedal edema. NEUROLOGICAL: Gross neurological examination did not reveal any focal deficits. SKIN: No rashes. - Labs CBC & Chem 7: 03/27/18 06:59 03/27/18 06:59 Labs: Abnormal Lab Results - Last 24 Hours (Table) 03/26/18 03/26/18 03/26/18 Range/Units 02:00 02:00 15:10 Neutrophils # 8.9 H (1.3-7.7) k/uL Lymphocytes # 0.9 L (1.0-4.8) k/uL D-Dimer 0.69 H (<0.60) mg/L FEU Chloride (98-107) mmol/L Carbon Dioxide (22-30) mmol/L BUN (7-17) mg/dL Urine Ketones Trace H (Negative) Urine Blood Trace H (Negative) Ur Squamous Epith Cells 6 H (0-4) /hpf Amorphous Sediment Rare H (None) /hpf Urine Bacteria Few H (None) /hpf Urine Mucus Rare H (None) /hpf 03/27/18 Range/Units 06:59 Neutrophils # (1.3-7.7) k/uL Lymphocytes # (1.0-4.8) k/uL D-Dimer (<0.60) mg/L FEU Chloride 110 H (98-107) mmol/L Carbon Dioxide 21 L (22-30) mmol/L BUN 6 L (7-17) mg/dL Urine Ketones (Negative) Urine Blood (Negative) Ur Squamous Epith Cells (0-4) /hpf Amorphous Sediment (None) /hpf Urine Bacteria (None) /hpf Urine Mucus (None) /hpf Microbiology - Last 24 Hours (Table) 03/26/18 15:10 Urine Culture - Preliminary Urine,Voided Assessment and Plan Assessment: Community-acquired pneumonia Systemic inflammatory response with fever and tachycardia, 2/4 Sepsis secondary to above Mediastinal lymphadenopathy, suspicious for sarcoidosis History of Chiari surgery Plan: This is a pleasant 27 years old lady who presents because of cough and fever. Continue with same treatment. Continue with symptomatic treatment. Follow-up culture results. Continue with antibiotics and IV fluids. Call pulmonary consult. Resume home medication. Monitor labs and vitals. Influenza swab. sputum culture DVT and GI prophylaxis. Pain management. Further recommendations based on the clinical course of the patient. DVT prophylaxis subcutaneous heparin GI prophylaxis Pepcid Prognosis is guarded Succuss with staff including recommendations
[2018-03-27] MEDS ORDERED: LEVOFLOXACIN 750 MG TAB PO SCH (16:00)
[2018-03-28] MEDS: ACETAMINOPHEN TAB 325 MG TAB PO PRN ×2 (06:17→12:41)
[2018-03-28] MEDS: guaiFENesin SYRUP 100MG/5ML 200 MG/10 ML CUP PO PRN ×2 (06:17→13:20)
[2018-03-28] MEDS: SODIUM CHLORIDE 0.9% 1,000 ML IV SCH ×2 (06:21→15:12)
[2018-03-28 06:53] LABS: Basophils % (A) 1 %; Eosinophils # (A) 0.2 k/uL (0-0.7); Eosinophils % (A) 4 %; HCT 36.1 % (34.0-46.0); HGB 11.7 gm/dL (11.4-16.0); Lymphocytes # (A) 1.5 k/uL (1.0-4.8); Lymphocytes % (A) 28 %; MCH 26.6 pg (25.0-35.0); MCHC 32.4 g/dL (31.0-37.0); MCV 82.1 fL (80.0-100.0); Mean Platelet Volume 6.7; Monocytes # (A) 0.4 k/uL (0-1.0); Monocytes % (A) 8 %; Neutrophils # (A) 3.2 k/uL (1.3-7.7); Neutrophils % (A) 58 %; Platelet Count 225 k/uL (150-450); RDW 14.1 % (11.5-15.5); WBC 5.5 k/uL (3.8-10.6)
[2018-03-28 07:10] LABS: Anion Gap 12 mmol/L; Blood Urea Nitrogen 6 mg/dL (7-17); Calcium 8.6 mg/dL (8.4-10.2); Carbon Dioxide 20 mmol/L (22-30); Chloride 108 mmol/L (98-107); Glucose 93 mg/dL (74-99); Potassium 4.4 mmol/L (3.5-5.1); Sodium 140 mmol/L (137-145)
[2018-03-28] MEDS: FAMOTIDINE 20 MG/2 ML VIAL IV SCH (07:32)
[2018-03-28] MEDS: LORATADINE 10 MG TAB PO SCH (07:32)
[2018-03-28] MEDS: HEPARIN SODIUM,PORCINE 5,000 UNIT/ML 1 ML VIAL SQ SCH (07:32)
[2018-03-28] MEDS: IPRATROPIUM-ALBUTEROL 3 ML NEB INHALATION PRN ×2 (08:16→13:25)
[2018-03-28] MEDS ORDERED: IBUPROFEN 400 MG TAB PO PRN (08:32)
[2018-03-28 12:36] VITALS: BP 122/86; RESP 16; TEMP 98.2
--- NOTE | 2018-03-28 12:59 | P.PN ---
Subjective Progress Note Date: 03/28/18 Principal diagnosis: Acute community acquired pneumonia involving the left upper lobe and reactive lymphadenopathy This is a 27-year-old female with history of Arnold chiari malformation, had surgery at [facility] for her malformation few months ago. Her postoperative course was relatively uneventful. Patient had no specific complications from her surgery. She was seen in the walk-in clinic yesterday with almost few weeks history of cough, nasal congestion, intermittent episodes of headaches, and felt that she was coming down with a cold that seems to have lasted longer than expected. Recently the patient has been spiking fevers, and her temp was 101. Her cough was productive with brownish phlegm, and felt some vague chest discomfort. Described as dull discomfort over the sternal area. This was worse with coughing. Patient was seen in the walk-in clinic and she was noted to be tachycardic, patient was in sinus tachycardia. Her rate was apparently 120 she had a temp of 101, and her WBC count was only 10.5. Patient was sent to the ER, CT angiogram of the chest showed left upper lobe infiltrate , it was noted to be nodular, some nonspecific mediastinal and bronchial lymph nodes were noted hence the differential diagnoses of reactive lymphadenopathy or sarcoidosis was considered, patient was admitted and this consult was initiated. Patient isn't ready feeling slightly better compared to how she felt yesterday, her heart rate seems to be well-controlled. Temp has been 98.4 at maximal and her cough symptoms as well as shortness of breath symptoms are slightly better. Patient had no previous history of sarcoidosis, no previous history of lymphoma, and the only past medical history is significant for her recent surgery back in November for arnold chiari malformation. Presently the patient denies any headaches, no blurred vision, no dizziness, no nausea no vomiting no abdominal pain no melena no hematemesis is no dysuria and no frequency no urgency. In terms of dizziness. On 03/30/2018 patient seen in follow-up in the pediatric unit. She is resting comfortably in bed, denies any acute distress, she did have some coughing episodes last night. Room air pulse ox is 100%, patient is afebrile, heart rate ranges from knee to low 110's, episodes of tachycardia usually after her breathing treatments are given. Denies any chest pain. At times she is able to bring up some clear phlegm. Sputum Culture is pending, urine culture and blood culture showed no growth. No dizziness or lightheadedness, patient states she is having a heart time sleeping in the hospital. Feels a little fatigued, and be late in the room, tolerated activity well. These labs were reviewed, and showed WBC of 5.5, hemoglobin of 11.7, sodium is 140, potassium is 4.4, chloride is 108, CO2 is 20. Patient is receiving IV hydration with 0.9 at 100 ml/hr. Influenza screen was negative, Armando level was 41, within normal range. Overall patient is doing better, no ongoing fevers. Less tachycardic, maintaining stable oxygenation on room air. She is currently on oral Levaquin. Yesterday's chest x-ray was reviewed, and showed left upper lobe consolidation , and hilar adenopathy. Patient is requesting to go home today, if possible. From pulmonary perspective patient is stable for discharge home on outpatient course of antibiotics, follow-up with Dr. Tillman any office in one week. Objective - Vital Signs Vital signs: Vital Signs Temp 98.2 F 03/28/18 12:16 Pulse 100 03/28/18 12:43 Resp 16 03/28/18 12:16 BP 122/86 03/28/18 12:16 Pulse Ox 100 03/28/18 12:43 Intake & Output 03/27/18 03/28/18 03/28/18 18:59 06:59 18:59 Intake Total 1300 400 Balance 1300 400 Intake: Oral 1300 400 Other: # Voids 2 2 - Exam GENERAL EXAM: Alert, pleasant, 27-year-old white female comfortable in no apparent distress. HEAD: Normocephalic/atraumatic. EYES: Normal reaction of pupils, equal size. Conjunctiva pink, sclera white. NOSE: Clear with pink turbinates. THROAT: No erythema or exudates. NECK: No masses, no JVD, no thyroid enlargement, no adenopathy. CHEST: No chest wall deformity. Symmetrical expansion. LUNGS: Equal air entry with bibasilar crackles, no wheeze, rhonchi or dullness. CVS: Regular rate and rhythm, normal S1 and S2, no gallops, no murmurs, no rubs ABDOMEN: Soft, nontender. No hepatosplenomegaly, normal bowel sounds, no guarding or rigidity. EXTREMITIES: No clubbing, no edema, no cyanosis, 2+ pulses and upper and lower extremities. MUSCULOSKELETAL: Muscle strength and tone normal. SPINE: No scoliosis or deformity SKIN: No rashes CENTRAL NERVOUS SYSTEM: Alert and oriented -3. No focal deficits, tone is normal in all 4 extremities. PSYCHIATRIC: Alert and oriented -3. Appropriate affect. Intact judgment and insight. - Labs CBC & Chem 7: 03/28/18 06:39 03/28/18 06:39 Labs: Abnormal Lab Results - Last 24 Hours (Table) 03/28/18 Range/Units 06:39 Chloride 108 H (98-107) mmol/L Carbon Dioxide 20 L (22-30) mmol/L BUN 6 L (7-17) mg/dL Microbiology - Last 24 Hours (Table) 03/27/18 22:20 Gram Stain - Preliminary Sputum Sputum Culture - Preliminary 03/26/18 15:10 Urine Culture - Final Urine,Voided 03/26/18 15:00 Blood Culture - Preliminary Blood No Growth after 24 hours Assessment and Plan Plan: 1 acute community-acquired pneumonia involving the left upper lobe. 2 reactive lymphadenopathy, however the differential diagnosis still includes sarcoidosis, and remote possibility of lymphoma but this is again felt to be less likely. 3 history of Arnold-chiari malformation surgery back in November. Recommendation: Patient is doing better, less tachycardic, no ongoing fevers, no leukocytosis, on room air, tolerating ambulation. No worsening shortness of breath. Patient is requesting to go home today, and from pulmonary perspective patient is stable for discharge home on outpatient course of Levaquin, patient will need follow-up with Dr. Ibrahim in the office in one week. She was instructed to call sooner if her symptoms worsen. I performed a history & physical examination of the patient and discussed their management with my nurse practitioner, Ellen Ruiz. I reviewed the nurse practitioner's note and agree with the documented findings and plan of care. Lung sounds are bilateral crackles. The findings and the impression was discussed with the patient. I attest to the documentation by the nurse practitioner. Time with Patient: Less than 30
[2018-03-28 13:29] VITALS: PULSE 101
--- NOTE | 2018-03-28 15:15 | P.DS ---
Providers Date of admission: 03/26/18 15:55 Attending physician: Torsten Rossi MD Consults: 03/26/18 15:53 Consult Physician Routine Consulting Provider: Jeny Doll Consult Reason/Comments: Pneumonia, please evaluate CT Do you want consulting provider notified?: Yes 03/26/18 17:16 Consult Physician Routine Consulting Provider: Jeny Doll Consult Reason/Comments: Pneumonia Do you want consulting provider notified?: Yes Primary care physician: [facility] Course: This is a pleasant 27 years old female with past medical history of chronic sinusitis, GERD surgery at [facility] on last November. Presents because of cough and fever. 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 And associated with chest pain that is central, describe it as dull comes mainly with coughing mild to moderate in severity. Patient not really dyspneic and she is saturating 100% on 2 L oxygen via nasal cannula In the emergency room patient was noted to be tachycardic at 120, fever at 101. With no leukocytosis and WBC at 10.5 K. Rest of the CBC and BMP was unremarkable. UA was not suggestive of infection and she had elevated d-dimer. With computed tomography scan of the chest with angiogram showing no PE with 3 cm left upper lobe infiltrate. With mediastinal lymphadenopathy up to 2 cm. Suspicious for sarcoidosis as per radiology report. patient was admitted to the general medical floor. patient was got IV fluids and was started on Levaquin antibiotic.she was been evaluated by deep submergence vehicle crewmember. Patient showed interval improvement. And on the day of discharge patient with no chest pain. Her breathing is quiet with no tachypnea. She is mildly tachycardic with heart rate 101. 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 Which could be controlled with medication. Patient with no fever for more than 48 hours. no leukocytosis. patient looks his stable and was cleared by pulmonary team for discharge. Patient states she has at home [she got that when she got influenza B about 2 years ago] patient problems and management plan were discussed with her in details and she verbalized understanding and acceptance. Patient is found stable and can be discharged home however she needs follow-up appointment with her PCP Dr. Mcdonald appointment was made in 2 days, and with Dr. Ibrahim deep submergence vehicle crewmember on May 05. Patient informed about these appointments and time and that she agrees with them. Prescription was provided for the antibiotic, breathing treatment and Cough medicine physical exam Gen.: Patient alert awake and oriented X 3, NOT IN DISTRESS CVS: s1-s2, RRR, no murmur CHEST:bilateral CTA, no wheezing or crepitation Abdomen: Soft, no tenderness, no distention, positive bowel sounds Extremities: No leg edema or induration time spent more than 55 minutes Plan - Discharge Summary Discharge Rx Participant: No New Discharge Prescriptions: No Action ALPRAZolam [Xanax] 0.5 mg PO TID PRN PRN Reason: Anxiety diphenhydrAMINE [Benadryl] 25 mg PO DAILY PRN PRN Reason: Allergy Symptoms Multivitamins, Thera [Multivitamin (formulary)] 1 tab PO DAILY Fluticasone Nasal [place] [Flonase Nasal [place]] 1 spray EA NOSTRIL DAILY Fexofenadine HCl [Sarina Allergy] 60 mg PO BID Ibuprofen/Pseudoephedrine HCl [Advil Cold & Sinus Caplet] 1 tab PO DAILY Eucalyptus Oil/Menthol/Camphor [Vicks Vaporub Ointment] 50 gm TOPICAL DAILY Discharge Medication List ALPRAZolam [Xanax] 0.5 mg PO TID PRN 12/06/17 [History] Eucalyptus Oil/Menthol/Camphor [Vicks Vaporub Ointment] 50 gm TOPICAL DAILY [History] Fexofenadine HCl [Sarina Allergy] 60 mg PO BID 03/26/18 [History] Fluticasone Nasal [place] [Flonase Nasal [place]] 1 spray EA NOSTRIL DAILY 03/26/18 [History] Ibuprofen/Pseudoephedrine HCl [Advil Cold & Sinus Caplet] 1 tab PO DAILY [History] Multivitamins, Thera [Multivitamin (formulary)] 1 tab PO DAILY 03/26/18 [History ] diphenhydrAMINE [Benadryl] 25 mg PO DAILY PRN 03/26/18 [History] Follow up Appointment(s)/Referral(s): Sudhir Tillman MD [STAFF PHYSICIAN] - 1 Week Rogers Mcdonald DO [Primary Care Provider] - 1-2 days
[2018-03-28] MEDS ORDERED: FAMOTIDINE 20 MG TAB PO SCH (21:00)
== END 2018-03-28 16:20 | disposition home or self-care (01) ==
LOC: EC 13:25 → 6PED 15:55
PROVIDERS: ADMIT Internal Medicine; ATTEND Internal Medicine
DX: J18.9 Pneumonia, unspecified organism (principal); R65.10 Systemic inflammatory response syndrome (SIRS) of non-infectious origin without acute organ dysfunction; A41.9 Sepsis, unspecified organism; R79.89 Other specified abnormal findings of blood chemistry; R59.0 Localized enlarged lymph nodes; Z87.798 Personal history of other (corrected) congenital malformations; F41.9 Anxiety disorder, unspecified; J32.9 Chronic sinusitis, unspecified; Z79.899 Other long term (current) drug therapy; Z79.51 Long term (current) use of inhaled steroids; Z86.018 Personal history of other benign neoplasm; Z88.5 Allergy status to narcotic agent; Z88.2 Allergy status to sulfonamides; Z88.1 Allergy status to other antibiotic agents; Z88.8 Allergy status to other drugs, medicaments and biological substances
CPT/HCPCS: 99291; 96365 ×2; 96375; 96376 ×2; 36415; 94640 ×6; 94760 ×2; 85379; 80053; 80048 ×2; 82164; 83605; 85025 ×3; 85610; 85730; 81001; 81025; 84703; 87040; 87070; 87086; 87205; 87502; 71046; 71275; G0378 ×3; J1885 ×2; J1956

== ENCOUNTER 2018-05-07 14:19 | Emergency (ER) | payer BC ==
[2018-05-07] MEDS ORDERED: IPRATROPIUM-ALBUTEROL 3 ML NEB INHALATION STA (15:05)
[2018-05-07] MEDS ORDERED: SODIUM CHLORIDE 0.9% 1,000 ML IV ONE (15:06)
[2018-05-07] MEDS ORDERED: predniSONE 20 MG TAB PO STA (15:06)
--- NOTE | 2018-05-07 15:10 | ED ---
General Adult HPI - General Chief complaint: Shortness of Breath Stated complaint: Fast heart rate/TANYA Time Seen by Provider: 05/07/18 14:42 Source: patient Mode of arrival: ambulatory Limitations: no limitations - History of Present Illness Initial comments: Patient is a 28-year-old female who presents with a chief complaint of shortness of breath. Patient had pneumonia last month for which she was in the hospital. She had 2 rounds of Levaquin and has been subsequently getting breathing treatments at home. Patient says she had a high heart rate at home and feels short of breath. She cannot identify any inciting incident to her symptoms. There are no aggravating or alleviating factors. Timing is constant. Patient denies the use of control, she denies chest pain, she denies nausea or vomiting. - Related Data Home Medications Medication Instructions Recorded Confirmed ALPRAZolam [Xanax] 0.5 mg PO TID PRN 12/06/17 05/07/18 diphenhydrAMINE [Benadryl] 25 mg PO DAILY PRN 03/26/18 05/07/18 Cyclobenzaprine [Flexeril] 10 mg PO DAILY PRN 05/07/18 05/07/18 Melatonin(Unknown Dose) 1 tab PO HS 05/07/18 05/07/18 Previous Rx's Medication Instructions Recorded Ipratropium-Albuterol Nebulize 3 ml INHALATION RT-Q6H PRN #1 03/28/18 [Duoneb 0.5 mg-3 mg/3 ml Soln] ampul.neb Albuterol Inhaler [Ventolin Hfa 1 - 2 puff INHALATION RT-Q6H #1 05/07/18 Inhaler] inhaler predniSONE [Deltasone] 60 mg PO DAILY #12 tablet 05/07/18 Allergies Allergy/AdvReac Type Severity Reaction Status Date / Time sulfamethoxazole Allergy Severe mouth sores Verified 05/07/18 15:27 [From Bactrim] trimethoprim [From Bactrim] Allergy Severe mouth sores Verified 05/07/18 15:27 erythromycin base Allergy Unknown Rash/Hives Verified 05/07/18 15:27 amoxicillin [From Augmentin] AdvReac Severe Abdominal Verified 05/07/18 15:27 Pain clavulanic acid AdvReac Severe Abdominal Verified 05/07/18 15:27 [From Augmentin] Pain hydrocodone bitartrate AdvReac Severe Nausea & Verified 05/07/18 15:27 [From Vicodin] Vomiting dextromethorphan AdvReac Intermediate Abdominal Verified 05/07/18 15:27 Pain promethazine [From Phenergan] AdvReac Intermediate Abdominal Verified 05/07/18 15:27 Pain Review of Systems ROS Statement: Those systems with pertinent positive or pertinent negative responses have been documented in the HPI. ROS Other: All systems not noted in ROS Statement are negative. Respiratory: Reports: dyspnea Past Medical History Additional Past Medical History / Comment(s): chronic sinusitis, chiari History of Any Multi-Drug Resistant Organisms: None Reported Past Surgical History: Tonsillectomy Additional Past Surgical History / Comment(s): benign melanoma removed. Chiari surgery in November at [facility] [facility] Past Anesthesia/Blood Transfusion Reactions: No Reported Reaction Past Psychological History: Anxiety Smoking Status: Current some day smoker Past Alcohol Use History: None Reported Past Drug Use History: None Reported - Past Family History Mother Family Medical History: No Reported History Father Family Medical History: No Reported History General Exam Limitations: no limitations General appearance: alert, in no apparent distress Head exam: Present: atraumatic, normocephalic Eye exam: Present: normal appearance ENT exam: Present: normal exam, mucous membranes moist Neck exam: Present: normal inspection Respiratory exam: Present: normal lung sounds bilaterally. Absent: respiratory distress, wheezes Cardiovascular Exam: Present: normal rhythm, tachycardia GI/Abdominal exam: Present: soft. Absent: distended, tenderness Rectal exam: Present: deferred Extremities exam: Present: normal inspection Back exam: Present: normal inspection Neurological exam: Present: alert, oriented X3 Psychiatric exam: Present: normal affect, normal mood Skin exam: Present: warm, dry, intact Course Vital Signs 05/07/18 05/07/18 05/07/18 14:33 15:36 16:03 Temperature 98.7 F Pulse Rate 94 84 88 Respiratory 18 Rate Blood Pressure 126/89 O2 Sat by Pulse 99 Oximetry 05/07/18 16:23 Temperature Pulse Rate 110 H Respiratory 16 Rate Blood Pressure 100/69 O2 Sat by Pulse 99 Oximetry Medical Decision Making - Medical Decision Making Patient presents chief complaint shortness of breath. On initial evaluation, vital signs are stable, patient is a note distress. EKG performed at 1454 kg normal sinus rhythm with a rate of 89 bpm. IA interval is 110 ms. There are no further evidence of WPW, Brugada, LVH, prolonged QT. Patient to be evaluated with basic labs including computed tomography scan of the chest as she states that she is scheduled to have a CT performed tomorrow at the instruction of her metal fence erector. Given breathing treatments and steroids. 5:24 PM lab evaluation of this patient is unremarkable. CT of the chest shows redemonstration of the previously known left upper lobe pneumonia. when compared to previous study performed in march, the pneumonia does not appear larger. at this point, i do not believe patient warrants further abx as there will likely be a radiographic abnormality for several weeks to months. on re-evaluation, patient states that her symptoms are improved. she was instructed to use her nebulizer or inhaler every 4 hours for the next 4 days and was prescribed steroids for the next 4 days. patient instructed to follow up with pcp and pulmonary in 1-2 days, return to the ED if sx worsen or change. - Lab Data Result diagrams: 05/07/18 15:44 05/07/18 15:44 Lab Results 05/07/18 05/07/18 Range/Units 15:44 15:44 WBC 10.2 (3.8-10.6) k/uL RBC 5.17 (3.80-5.40) m/uL Hgb 13.5 (11.4-16.0) gm/dL Hct 41.3 (34.0-46.0) % MCV 79.8 L (80.0-100.0) fL MCH 26.2 (25.0-35.0) pg MCHC 32.8 (31.0-37.0) g/dL RDW 14.2 (11.5-15.5) % Plt Count 328 (150-450) k/uL Neutrophils % 73 % Lymphocytes % 20 % Monocytes % 4 % Eosinophils % 1 % Basophils % 0 % Neutrophils # 7.4 (1.3-7.7) k/uL Lymphocytes # 2.0 (1.0-4.8) k/uL Monocytes # 0.4 (0-1.0) k/uL Eosinophils # 0.1 (0-0.7) k/uL Basophils # 0.0 (0-0.2) k/uL Sodium 141 (137-145) mmol/L Potassium 4.8 (3.5-5.1) mmol/L Chloride 106 (98-107) mmol/L Carbon Dioxide 25 (22-30) mmol/L Anion Gap 10 mmol/L BUN 10 (7-17) mg/dL Creatinine 0.73 (0.52-1.04) mg/dL Est GFR (CKD-EPI)AfAm >90 (>60 ml/min/1.73 sqM) Est GFR (CKD-EPI)NonAf >90 (>60 ml/min/1.73 sqM) Glucose 85 (74-99) mg/dL Calcium 9.8 (8.4-10.2) mg/dL Total Bilirubin 0.4 (0.2-1.3) mg/dL AST 14 (14-36) U/L ALT 29 (9-52) U/L Alkaline Phosphatase 72 (38-126) U/L Total Protein 7.9 (6.3-8.2) g/dL Albumin 4.4 (3.5-5.0) g/dL HCG, Qual Not Detected Disposition Clinical Impression: SOB (shortness of breath), Pneumonia Disposition: HOME SELF-CARE Condition: Good Instructions: Acute Bronchitis (ED) Prescriptions: Albuterol Inhaler [Ventolin Hfa Inhaler] 1 - 2 puff INHALATION RT-Q6H #1 inhaler predniSONE [Deltasone] 60 mg PO DAILY #12 tablet Is patient prescribed a controlled substance at d/c from ED?: No Referrals: Rogers Mcdonald DO [Primary Care Provider] - 1-2 days
[2018-05-07 16:10] LABS: Basophils % (A) 0 %; Eosinophils # (A) 0.1 k/uL (0-0.7); Eosinophils % (A) 1 %; HCT 41.3 % (34.0-46.0); HGB 13.5 gm/dL (11.4-16.0); Lymphocytes % (A) 20 %; MCH 26.2 pg (25.0-35.0); MCHC 32.8 g/dL (31.0-37.0); MCV 79.8 fL (80.0-100.0); Mean Platelet Volume 6.6; Monocytes # (A) 0.4 k/uL (0-1.0); Monocytes % (A) 4 %; Neutrophils # (A) 7.4 k/uL (1.3-7.7); Neutrophils % (A) 73 %; Platelet Count 328 k/uL (150-450); RBC 5.17 m/uL (3.80-5.40); RDW 14.2 % (11.5-15.5); WBC 10.2 k/uL (3.8-10.6)
[2018-05-07 16:15] LABS: HCG,Qualitative Serum Not Detected
[2018-05-07 16:17] LABS: ALT 29 U/L (9-52); AST 14 U/L (14-36); Albumin 4.4 g/dL (3.5-5.0); Alkaline Phosphatase 72 U/L (38-126); Anion Gap 10 mmol/L; Blood Urea Nitrogen 10 mg/dL (7-17); Calcium 9.8 mg/dL (8.4-10.2); Carbon Dioxide 25 mmol/L (22-30); Chloride 106 mmol/L (98-107); Glucose 85 mg/dL (74-99); Potassium 4.8 mmol/L (3.5-5.1); Sodium 141 mmol/L (137-145); Total Bilirubin 0.4 mg/dL (0.2-1.3); Total Protein 7.9 g/dL (6.3-8.2)
[2018-05-07 16:25] VITALS: RESP 16
--- NOTE | 2018-05-07 16:51 | CT ---
EXAMINATION TYPE: CT chest angio for PE DATE OF EXAM: 05/07/2018 COMPARISON: 03/26/2018 HISTORY: CHEST PRESSURE, SOB, RECENT PNEUMONIA CT DLP: 399.5 mGycm Automated exposure control for dose reduction was used. CONTRAST: CT Chest for pulmonary embolism performed with with IV Contrast, patient injected with 74 mL of Isovu e 370. There are 3-D post processed images. FINDINGS: There is some mild interstitial and alveolar infiltrate in the left upper lobe. The other lung perdomo are clear. There is no evidence of a pulmonary mass. There is no pleural effusion. Thoracic aorta is intact without evidence of aneurysm or dissection. There is normal contrast opacification of the pul monary arteries. There are no filling defects. There is no mediastinal adenopathy. There are no hilar masses. The bony thorax is intact. There is enlarged left bronchial lymph node that measures 17 mm. This probably relates to inflammatory disease. IMPRESSION: Left upper lobe pneumonia. No evidence of pulmonary embolism.
[2018-05-07 17:45] VITALS: BP 111/70; PULSE 78; TEMP 97.8
== END 2018-05-07 17:44 | disposition home or self-care (01) ==
LOC: EC 14:19
DX: J18.1 Lobar pneumonia, unspecified organism (principal); R00.0 Tachycardia, unspecified; F17.200 Nicotine dependence, unspecified, uncomplicated; Z88.0 Allergy status to penicillin; Z88.1 Allergy status to other antibiotic agents; Z88.2 Allergy status to sulfonamides; Z88.5 Allergy status to narcotic agent; Z88.8 Allergy status to other drugs, medicaments and biological substances; Z79.899 Other long term (current) drug therapy
CPT/HCPCS: 36415; 94640; 93005; 80053; 85025; 84703; 71275; 99285; 96360; J7512; Q9967

== ENCOUNTER 2019-05-10 14:31 | Emergency (ER) | payer BC ==
[2019-05-10] MEDS ORDERED: SODIUM CHLORIDE 0.9% 1,000 ML IV STA (14:44)
[2019-05-10] MEDS ORDERED: METOCLOPRAMIDE 5 MG/ML 2 ML VIAL IVP STA (14:44)
--- NOTE | 2019-05-10 15:00 | ED ---
General Adult HPI - General Chief complaint: Nausea/Vomiting/Diarrhea Stated complaint: 8 wks preg/vomiting Time Seen by Provider: 05/10/19 14:42 Source: patient Mode of arrival: ambulatory Limitations: no limitations - History of Present Illness Initial comments: Patient is a 29-year-old female, , 8 week is presenting to emergency Department with chief complaint of nausea and vomiting. Patient reports the symptoms have been ongoing since 0 300. Patient reports she contacted her OB who advised if symptoms not improve to go to the emergency room for hydration. Patient reports the OB also prescribed her oral Zofran and advised her to take it only after she visits the ED. At this time patient complains of nausea with multiple areas of vomiting but no constipation diarrhea. Patient denies increased urgency frequency or dysuria. Patient denies any abdominal pain, chest pain shortness of breath or headache. Patient reports that she took vitamin B6 and Unisom with minimal improvement. - Related Data Home Medications Medication Instructions Recorded Confirmed diphenhydrAMINE [Benadryl] 25 mg PO DAILY PRN 03/26/18 05/10/19 Acetaminophen Tab [Tylenol Tab] 650 mg PO Q6H PRN 05/10/19 05/10/19 Doxylamine/Pyridoxine HCl (B6) 1 tab PO HS 05/10/19 05/10/19 [Elza Blood 10-10 mg Tablet] Loratadine [Claritin] 10 mg PO DAILY PRN 05/10/19 05/10/19 Pnv No.95/Ferrous Fum/Folic AC 1 tab PO DAILY 05/10/19 05/10/19 [ Multivitamin Tablet] Allergies Allergy/AdvReac Type Severity Reaction Status Date / Time erythromycin base Allergy Unknown Rash/Hives Verified 05/10/19 14:57 amoxicillin [From Augmentin] AdvReac Severe Abdominal Verified 05/10/19 14:57 Pain clavulanic acid AdvReac Severe Abdominal Verified 05/10/19 14:57 [From Augmentin] Pain hydrocodone bitartrate AdvReac Severe Nausea & Verified 05/10/19 14:57 [From Vicodin] Vomiting sulfamethoxazole AdvReac Severe mouth sores Verified 05/10/19 14:57 [From Bactrim] trimethoprim [From Bactrim] AdvReac Severe mouth sores Verified 05/10/19 14:57 dextromethorphan AdvReac Intermediate Abdominal Verified 05/10/19 14:57 Pain promethazine [From Phenergan] AdvReac Intermediate Abdominal Verified 05/10/19 14:57 Pain Review of Systems ROS Statement: Those systems with pertinent positive or pertinent negative responses have been documented in the HPI. ROS Other: All systems not noted in ROS Statement are negative. Past Medical History Additional Past Medical History / Comment(s): chronic sinusitis, chiari History of Any Multi-Drug Resistant Organisms: None Reported Past Surgical History: Tonsillectomy Additional Past Surgical History / Comment(s): benign melanoma removed. Chiari surgery in November at [place] Past Anesthesia/Blood Transfusion Reactions: No Reported Reaction Past Psychological History: Anxiety Smoking Status: Current some day smoker Past Alcohol Use History: None Reported Past Drug Use History: None Reported - Past Family History Mother Family Medical History: No Reported History Father Family Medical History: No Reported History General Exam Limitations: no limitations General appearance: alert, in no apparent distress Head exam: Present: atraumatic, normocephalic, normal inspection Eye exam: Present: normal appearance Pupils: Present: normal accommodation ENT exam: Present: normal exam, mucous membranes moist, normal external ear exam Neck exam: Present: normal inspection, full ROM Respiratory exam: Present: normal lung sounds bilaterally Cardiovascular Exam: Present: regular rate, normal rhythm, normal heart sounds GI/Abdominal exam: Present: soft. Absent: tenderness Extremities exam: Present: normal inspection, full ROM Back exam: Present: normal inspection, full ROM Neurological exam: Present: alert, oriented X3 Psychiatric exam: Present: normal affect, normal mood Skin exam: Present: warm, intact, normal color Course Vital Signs 05/10/19 05/10/19 14:33 16:46 Temperature 98.3 F Pulse Rate 93 89 Respiratory 20 20 Rate Blood Pressure 121/82 103/78 O2 Sat by Pulse 99 97 Oximetry Medical Decision Making - Medical Decision Making Patient is a 29-year-old female, , 8 week is presenting to emergency Department with chief complaint of nausea and vomiting. Patient came to the ED after she was advised by her talent acquisition program manager. Initial evaluation is unremarkable. UA does show ketones some suspecting dehydration. Patient given Reglan and fluids. No signs of a UTI. CBC does indicate leukocytosis of 14,000 however this can be contributed to the continuous nausea or vomiting. Single viable intrauterine is noted on ultrasound. Serum hCG is pending. On reevaluation patient reports that she feels slightly jittery which can be attributed to the Reglan. Patient was offered Benadryl but she declined because she takes that at night as a sleep aid. Patient ready has Zofran prescription from the talent acquisition program manager. On secondary evaluation patient reports improvement in her symptoms and nausea. Should return parameters were thoroughly discussed the patient was understanding and agreeable. Case discussed physician. - Lab Data Result diagrams: 05/10/19 15:43 05/10/19 15:43 Lab Results 05/10/19 05/10/19 05/10/19 Range/Units 14:46 15:43 15:43 WBC 14.2 H (3.8-10.6) k/uL RBC 4.79 (3.80-5.40) m/uL Hgb 13.5 (11.4-16.0) gm/dL Hct 39.8 (34.0-46.0) % MCV 83.0 (80.0-100.0) fL MCH 28.1 (25.0-35.0) pg MCHC 33.8 (31.0-37.0) g/dL RDW 13.5 (11.5-15.5) % Plt Count 343 (150-450) k/uL Neutrophils % 78 % Lymphocytes % 15 % Monocytes % 4 % Eosinophils % 1 % Basophils % 1 % Neutrophils # 11.0 H (1.3-7.7) k/uL Lymphocytes # 2.2 (1.0-4.8) k/uL Monocytes # 0.5 (0-1.0) k/uL Eosinophils # 0.2 (0-0.7) k/uL Basophils # 0.1 (0-0.2) k/uL Sodium 138 (137-145) mmol/L Potassium 3.9 (3.5-5.1) mmol/L Chloride 105 (98-107) mmol/L Carbon Dioxide 21 L (22-30) mmol/L Anion Gap 12 mmol/L BUN 6 L (7-17) mg/dL Creatinine 0.55 (0.52-1.04) mg/dL Est GFR (CKD-EPI)AfAm >90 (>60 ml/min/1.73 sqM) Est GFR (CKD-EPI)NonAf >90 (>60 ml/min/1.73 sqM) Glucose 89 (74-99) mg/dL Calcium 9.5 (8.4-10.2) mg/dL Total Bilirubin 0.2 (0.2-1.3) mg/dL AST 12 L (14-36) U/L ALT 18 (9-52) U/L Alkaline Phosphatase 83 (38-126) U/L Total Protein 7.9 (6.3-8.2) g/dL Albumin 4.3 (3.5-5.0) g/dL Amylase 73 (30-110) U/L Lipase 78 (23-300) U/L Urine Color Yellow Urine Appearance Cloudy H (Clear) Urine pH 7.5 (5.0-8.0) Ur Specific [place] 1.029 (1.001-1.035) Urine Protein 1+ H (Negative) Urine Glucose (UA) Negative (Negative) Urine Ketones 1+ H (Negative) Urine Blood Negative (Negative) Urine Nitrite Negative (Negative) Urine Bilirubin Negative (Negative) Urine Urobilinogen 2.0 (<2.0) mg/dL Ur Leukocyte Esterase Trace H (Negative) Urine RBC 2 (0-5) /hpf Urine WBC 3 (0-5) /hpf Ur Squamous Epith Cells 17 H (0-4) /hpf Urine Bacteria Many H (None) /hpf Urine Mucus Many H (None) /hpf Disposition Clinical Impression: Nausea/vomiting in Disposition: HOME SELF-CARE Condition: Stable Instructions (If sedation given, give patient instructions): Acute Nausea and Vomiting (ED) Additional Instructions: Please take Zofran that was prescribed T by your talent acquisition program manager. Please return to emergency department if symptoms worsen. Please drink lots of fluids. Is patient prescribed a controlled substance at d/c from ED?: No Referrals: Rogers Mcdonald DO [Primary Care Provider] - 1-2 days Time of Disposition: 17:22
[2019-05-10 15:44] LABS: Appearance,Urine Cloudy (Clear); Bacteria,Urine Many /hpf; Bilirubin,Urine Negative (Negative); Blood,Urine Negative (Negative); Color,Urine Yellow; Glucose,Urine (UA) Negative (Negative); Ketones,Urine 1+ (Negative); Leukocyte Esterase,Urine Trace (Negative); Mucus,Urine Many /hpf; Nitrite,Urine Negative (Negative); PH, Urine 7.5 (5.0-8.0); Protein,Urine 1+ (Negative); RBC,Urine 2 /hpf (0-5); Specific Gravity,Urine 1.029 (1.001-1.035); Squamous Epithelial Cell,Urine 17 /hpf (0-4); WBC,Urine 3 /hpf (0-5)
--- NOTE | 2019-05-10 15:48 | US ---
EXAMINATION TYPE: Transabdominal DATE OF EXAM: 05/10/2019 3:33 PM COMPARISON: NONE CLINICAL HISTORY: n/v, no previous sonography. EXAM PERFORMED: Transvaginal (TV) and Transabdominal (TA) EXAM MEASUREMENTS: GESTATIONAL AGE / DATING Physician Established: Not yet established Dates by LMP: (8 weeks/1 days) EDC: 12/19/2019 Dates by First Scan: No previous this is first scan Dates by Current Scan for: (8 weeks/2 days) EDC: 12/18/2019 MATERNAL ANATOMY Uterus: 6.9 x 5.6 x 5.8 cm Right Ovary: 3.4 x 2.5 x 1.8 cm Left Ovary: Obscured by bowel gas. Post CDS / Adnexa: wnl Presence of free fluid: no Presence of corpus luteal cyst: yes right ovary Presence of subchorionic bleed: no GESTATION / SURVEY CRL: 1.80 cm (8 weeks/2 days) Yolk Sac (normal less than 6mm): 2 mm Heart Rate: 168 bpm Rhythm: Normal IUP: Viable IUP Beta HcG (if available): Not available at this time IMPRESSION: Single viable intrauterine as noted above.
[2019-05-10 15:57] LABS: Basophils # (A) 0.1 k/uL (0-0.2); Basophils % (A) 1 %; Eosinophils # (A) 0.2 k/uL (0-0.7); Eosinophils % (A) 1 %; HCT 39.8 % (34.0-46.0); HGB 13.5 gm/dL (11.4-16.0); Lymphocytes # (A) 2.2 k/uL (1.0-4.8); Lymphocytes % (A) 15 %; MCH 28.1 pg (25.0-35.0); MCHC 33.8 g/dL (31.0-37.0); Mean Platelet Volume 6.3; Monocytes # (A) 0.5 k/uL (0-1.0); Monocytes % (A) 4 %; Neutrophils % (A) 78 %; Platelet Count 343 k/uL (150-450); RBC 4.79 m/uL (3.80-5.40); RDW 13.5 % (11.5-15.5); WBC 14.2 k/uL (3.8-10.6)
[2019-05-10 16:04] LABS: ALT 18 U/L (9-52); AST 12 U/L (14-36); African American GFR (CKD) >90 (>60 ml/min/1.73 sqM); Albumin 4.3 g/dL (3.5-5.0); Alkaline Phosphatase 83 U/L (38-126); Amylase 73 U/L (30-110); Anion Gap 12 mmol/L; Blood Urea Nitrogen 6 mg/dL (7-17); Calcium 9.5 mg/dL (8.4-10.2); Carbon Dioxide 21 mmol/L (22-30); Chloride 105 mmol/L (98-107); Glucose 89 mg/dL (74-99); Non-African American GFR(CKD) >90 (>60 ml/min/1.73 sqM); Potassium 3.9 mmol/L (3.5-5.1); Sodium 138 mmol/L (137-145); Total Bilirubin 0.2 mg/dL (0.2-1.3); Total Protein 7.9 g/dL (6.3-8.2)
[2019-05-10] MEDS ORDERED: ONDANSETRON 4 MG/2 ML VIAL IVP STA (16:38)
[2019-05-10 17:29] VITALS: BP 125/82; PULSE 96; RESP 16; TEMP 98.4
== END 2019-05-10 17:32 | disposition home or self-care (01) ==
LOC: EC 14:31
DX: O21.9 Vomiting of pregnancy, unspecified (principal); O99.331 Smoking (tobacco) complicating pregnancy, first trimester; F17.200 Nicotine dependence, unspecified, uncomplicated; Z88.0 Allergy status to penicillin; Z88.1 Allergy status to other antibiotic agents; Z88.2 Allergy status to sulfonamides; Z88.5 Allergy status to narcotic agent; Z88.6 Allergy status to analgesic agent; Z88.8 Allergy status to other drugs, medicaments and biological substances; Z85.820 Personal history of malignant melanoma of skin; Z3A.08 8 weeks gestation of pregnancy
CPT/HCPCS: 36415; 80053; 82150; 83690; 85025; 81001; 84702; 76801; 76817; 99284; 96374; 96361 ×2; J2765

== ENCOUNTER 2019-09-15 11:03 | Outpatient (CLI) | payer BC ==
[2019-09-15 11:52] LABS: Appearance,Urine Clear (Clear); Bilirubin,Urine Negative (Negative); Blood,Urine Negative (Negative); Color,Urine Light Yellow; Glucose,Urine (UA) Negative (Negative); Ketones,Urine Negative (Negative); Leukocyte Esterase,Urine Negative (Negative); Nitrite,Urine Negative (Negative); Protein,Urine Negative (Negative); Specific Gravity,Urine 1.007 (1.001-1.035); Urobilinogen,Urine <2.0 mg/dL (<2.0)
[2019-09-15 12:10] VITALS: BP 122/74; PULSE 108; RESP 16; TEMP 97.5
[2019-09-15] MEDS ORDERED: ACETAMINOPHEN IV (For NPO) 1,000 MG in EMPTY BAG 1 BAG IVPB ONE (12:19)
[2019-09-15] MEDS ORDERED: LACTATED RINGERS 1,000 ML IV SCH (12:30)
[2019-09-15 12:52] LABS: Basophils % (A) 0 %; Eosinophils # (A) 0.1 k/uL (0-0.7); Eosinophils % (A) 1 %; HCT 33.4 % (34.0-46.0); HGB 11.3 gm/dL (11.4-16.0); Lymphocytes # (A) 2.3 k/uL (1.0-4.8); Lymphocytes % (A) 15 %; MCHC 33.7 g/dL (31.0-37.0); MCV 83.2 fL (80.0-100.0); Mean Platelet Volume 7.8; Monocytes # (A) 0.7 k/uL (0-1.0); Monocytes % (A) 5 %; Neutrophils # (A) 11.6 k/uL (1.3-7.7); Neutrophils % (A) 77 %; Platelet Count 299 k/uL (150-450); RBC 4.02 m/uL (3.80-5.40); RDW 14.6 % (11.5-15.5); WBC 15.1 k/uL (3.8-10.6)
--- NOTE | 2019-10-03 11:33 | P.MSEPDOC ---
Presenting Problems - Arrival Data Date of Arrival on Unit: 09/15/19 Time of Arrival on Unit: 11:26 Mode of Transport: Ambulatory - Complaint OB-Reason for Admission/Chief Complaint: Pain Comment: rt lower abd and flank pain. pain scale =7 increasing though night. increases with urination and standing and walking Medical History - Information : 1 Para: 0 Term: 0 : 0 Abortions: Spontaneous or Elective: 0 Number of Living Children: 0 - Gestational Age Gestational Age by MARY (wks/days): 26 Weeks and 3 Days - History Complications: Other Comment: condition requiring brain surgery last year. dr frederick aware of. Review of Systems - Review of Systems Constitutional: No problems Breast: No problems ENT: No problems Cardiovascular: No problems Respiratory: No problems Gastrointestinal: No problems Genitourinary: No problems Musculoskeletal: No problems Neurological: No problems Skin: No problems Comment: rt sided lower abd and flank pain increasing thoughout night. Vital Signs - Temperature Temperature: 97.5 F Temperature Source: Temporal Artery Scan - Pulse Right Radial Pulse Rate: 108 Pulse Assessment Method: Automatic Cuff - Respirations Respiratory Rate: 16 Oxygen Delivery Method: Room Air O2 Sat by Pulse Oximetry: 99 - Blood Pressure Right Arm Blood Pressure: 122/74 Blood Pressure Mean: 90 Blood Pressure Source: Automatic Cuff Medical Screen Scoring (Pre) - Cervical Exam Dilation: Exam Deferred Effacement: Exam Deferred Membranes: Intact - Uterine Contractions Frequency: N/A - Maternal Vital Signs Maternal Temperature: N/A Maternal Blood Pressure: N/A Signs of Preeclampsia: N/A Maternal Respirations: N/A - Maternal Trauma Maternal Trauma: N/A - Assessment - Baby A Baseline FHR: 150 Heart Rate - NICHD Category: Category I (Normal) = 0 NST: Reactive Position: N/A Station: N/A - Total Score - Baby A Total Score - Baby A: 0 - Total Score - Baby B Total Score - Baby B: 0 - Total Score - Baby C Total Score - Baby C: 0 - Level of Risk - Baby A Level of Risk - Baby A: Low (0-5) - Level of Risk - Baby B Level of Risk - Baby B: Low (0-5) - Level of Risk - Baby C Level of Risk - Baby C: Low (0-5) Physician Notification (Pre) - Physician Notified Physician Notified Date: 09/15/19 Physician Notified Time: 11:20 New Order Received: Yes (triage evaluation, monitor baby and u/a) - Notification Comment Comment: iv hyderation with l/r. ofermev ivpb x1. cbc- ok . pain scale down to 4. home with instructions . follow up in office tuesday. Disposition - Disposition OB Disposition: Discharge to home Discharge Date: 09/15/19 Discharge Time: 14:00 I agree with the RN Medical Screening Exam: Yes Risk & Benefit of care provided described in d/c instruction: Yes Diagnosis: PAIN, UNSPECIFIED
== END 2019-09-15 14:00 | disposition home or self-care (01) ==
LOC: FBPOP 11:03
PROVIDERS: ATTEND Obstetrics & Gynecology Obstetrics
DX: O99.89 Other specified diseases and conditions complicating pregnancy, childbirth and the puerperium (principal); R52 Pain, unspecified; Z3A.26 26 weeks gestation of pregnancy
CPT/HCPCS: 99214; 96361; 96365; 85025; 81003; J0131; 96367; 96374

== ENCOUNTER 2019-11-28 | Outpatient (CLI) | payer BC ==
[2019-11-28 00:20] VITALS: BP 137/88; PULSE 100; TEMP 98.2
[2019-11-28 02:16] LABS: Anisocytosis Slight; Basophils % (A) 0 %; Eosinophils # (A) 0.2 k/uL (0-0.7); Eosinophils % (A) 1 %; HCT 34.4 % (34.0-46.0); HGB 11.5 gm/dL (11.4-16.0); Lymphocytes # (A) 2.2 k/uL (1.0-4.8); Lymphocytes % (A) 17 %; MCH 28.9 pg (25.0-35.0); MCHC 33.4 g/dL (31.0-37.0); MCV 86.4 fL (80.0-100.0); Mean Platelet Volume 8.3; Monocytes # (A) 0.7 k/uL (0-1.0); Monocytes % (A) 5 %; Neutrophils # (A) 9.7 k/uL (1.3-7.7); Neutrophils % (A) 75 %; Platelet Count 284 k/uL (150-450); RBC 3.98 m/uL (3.80-5.40)
[2019-11-28 02:18] LABS: Appearance,Urine Cloudy (Clear); Bacteria,Urine Many /hpf; Bilirubin,Urine Negative (Negative); Blood,Urine Negative (Negative); Color,Urine Yellow; Glucose,Urine (UA) Negative (Negative); Ketones,Urine Negative (Negative); Leukocyte Esterase,Urine Negative (Negative); Mucus,Urine Occasional /hpf; Nitrite,Urine Negative (Negative); PH, Urine 6.5 (5.0-8.0); Protein,Urine 1+ (Negative); RBC,Urine 1 /hpf (0-5); Specific Gravity,Urine 1.021 (1.001-1.035); Squamous Epithelial Cell,Urine 2 /hpf (0-4); WBC,Urine 3 /hpf (0-5)
[2019-11-28 02:20] LABS: ALT 14 U/L (4-34); AST 16 U/L (14-36); African American GFR (CKD) >90 (>60 ml/min/1.73 sqM); Blood Urea Nitrogen 11 mg/dL (7-17); LDH 387 U/L (313-618); Non-African American GFR(CKD) >90 (>60 ml/min/1.73 sqM); Uric Acid 6.1 mg/dL (3.7-7.4)
[2019-11-28 02:24] LABS: Protein/Creatinine Ratio,Urine 0.145
[2019-11-28 02:54] VITALS: RESP 18
== END 2019-11-28 02:40 | disposition home or self-care (01) ==
LOC: FBPOP
PROVIDERS: ATTEND Obstetrics & Gynecology
DX: O47.1 False labor at or after 37 completed weeks of gestation (principal); Z3A.37 37 weeks gestation of pregnancy
CPT/HCPCS: 59025; 81001; 82565; 82570; 83615; 84156; 84450; 84460; 84520; 84550; 85025; 99215

== ENCOUNTER 2019-12-13 21:45 | Inpatient (IN) | payer BC ==
[2019-12-13 22:55] LABS: Appearance,Urine Cloudy (Clear); Bacteria,Urine Many /hpf; Bilirubin,Urine Negative (Negative); Blood,Urine Negative (Negative); Color,Urine Yellow; Glucose,Urine (UA) Negative (Negative); Hyaline Casts,Urine 3 /lpf (0-2); Ketones,Urine Negative (Negative); Leukocyte Esterase,Urine Negative (Negative); Mucus,Urine Few /hpf; Nitrite,Urine Negative (Negative); Protein,Urine 4+ (Negative); RBC,Urine 2 /hpf (0-5); Specific Gravity,Urine 1.032 (1.001-1.035); Squamous Epithelial Cell,Urine 6 /hpf (0-4); Urobilinogen,Urine <2.0 mg/dL (<2.0); WBC,Urine 6 /hpf (0-5)
[2019-12-13 23:18] LABS: Creatinine,Urine Random 205.8 mg/dL
[2019-12-13 23:32] LABS: Total Protein,Urine Random >600 mg/dL (<12)
[2019-12-14] LABS: ALT 10 U/L (4-34); AST 13 U/L (14-36)
[2019-12-14 01:00] LABS: Anisocytosis Slight; Basophils % (A) 0 %; Eosinophils # (A) 0.2 k/uL (0-0.7); Eosinophils % (A) 2 %; HCT 36.2 % (34.0-46.0); HGB 12.3 gm/dL (11.4-16.0); Lymphocytes # (A) 2.5 k/uL (1.0-4.8); Lymphocytes % (A) 20 %; MCH 29.3 pg (25.0-35.0); MCHC 33.9 g/dL (31.0-37.0); MCV 86.5 fL (80.0-100.0); Mean Platelet Volume 9.4; Monocytes # (A) 0.7 k/uL (0-1.0); Monocytes % (A) 6 %; Neutrophils % (A) 71 %; Platelet Count 237 k/uL (150-450); RBC 4.18 m/uL (3.80-5.40); RDW 17.3 % (11.5-15.5); WBC 12.6 k/uL (3.8-10.6)
[2019-12-14] MEDS ORDERED: LABETALOL 100 MG TAB PO PRN (02:03)
[2019-12-14] MEDS ORDERED: ceFAZolin 3 GM in SODIUM CHLORIDE 0.9% 100 ML IVPB ONE (08:16)
[2019-12-14] MEDS ORDERED: CITRIC ACID-SODIUM CITRATE 15 ML CUP PO ONE (08:16)
--- NOTE | 2019-12-14 08:16 | P.HPOB ---
History of Present Illness H&P Date: 12/14/19 Chief Complaint: IUP @ 39 0/7 weeks, preeclampsia with sever features. This is a 29-year-old 1 para 0 at 39 2/7 weeks, with an EDC of 12/19/19. Patient has been receiving routine care. Patient presented to the hospital last evening with complaints of contractions. Blood pressures were noted to be elevated 160s to 180s over 90s to 110. Patient was admitted blood pressures with rest were noted to be 120s to 130s over 70s to 90s. Patient notes good movement. She denies headache. She underwent preeclampsia labs and urine specimen. Urine was noted to have for area. 13 creatinine ratio was noted to be to elevated for calculation. Patient does have a history of Arnold-Chiari malformation with prior surgery, neuro consult was obtained during the with no restrictions noted. Patient with a history of severe anxiety, she has been very anxious since admission, stating she has had multiple panic attacks. She is not on any medication for anxiety currently. On bloodwork patient has a blood type of O-, her rubella status is immune, RPR is nonreactive, hep Kiarra surface antigen is negative, HIV is negative, she did pass her one-hour Glucola, Review of Systems Constitutional: Reports fatigue, Denies chills, Denies fever Ears, nose, mouth and throat: Denies headache Cardiovascular: Reports leg edema Respiratory: Denies dyspnea Gastrointestinal: Denies constipation, Denies diarrhea, Denies nausea, Denies vomiting Genitourinary: Reports Past Medical History Additional Past Medical History / Comment(s): chronic sinusitis, chiari History of Any Multi-Drug Resistant Organisms: None Reported Past Surgical History: Tonsillectomy Additional Past Surgical History / Comment(s): benign melanoma removed. Chiari surgery in November at [facility] Past Anesthesia/Blood Transfusion Reactions: No Reported Reaction Past Psychological History: Anxiety Smoking Status: Never smoker Past Alcohol Use History: None Reported Past Drug Use History: None Reported - Past Family History Mother Family Medical History: No Reported History Father Family Medical History: No Reported History Medications and Allergies Home Medications Medication Instructions Recorded Confirmed Type Pnv No.95/Ferrous Fum/Folic AC 1 tab PO DAILY 05/10/19 12/13/19 History [ Multivitamin Tablet] Famotidine [Pepcid] 40 mg PO HS 11/28/19 12/13/19 History Ferrous Sulfate [Iron] 325 mg PO DAILY 11/28/19 12/13/19 History Loratadine [Claritin] 1 tab PO DAILY 12/13/19 12/13/19 History valACYclovir [Valtrex] 500 mg PO BID 12/14/19 12/14/19 History Allergies Allergy/AdvReac Type Severity Reaction Status Date / Time erythromycin base Allergy Unknown Rash/Hives Verified 12/13/19 22:02 amoxicillin [From Augmentin] AdvReac Severe Abdominal Verified 12/13/19 22:02 Pain clavulanic acid AdvReac Severe Abdominal Verified 12/13/19 22:02 [From Augmentin] Pain hydrocodone bitartrate AdvReac Severe Nausea & Verified 12/13/19 22:02 [From Vicodin] Vomiting sulfamethoxazole AdvReac Severe mouth sores Verified 12/13/19 22:02 [From Bactrim] trimethoprim [From Bactrim] AdvReac Severe mouth sores Verified 12/13/19 22:02 dextromethorphan AdvReac Intermediate Abdominal Verified 12/13/19 22:02 Pain promethazine [From Phenergan] AdvReac Intermediate Abdominal Verified 12/13/19 22:02 Pain acetaminophen [From Vicodin] AdvReac Nausea & Verified 12/13/19 22:02 Vomiting hydrocodone [From Vicodin] AdvReac Nausea & Verified 12/13/19 22:02 Vomiting metoclopramide [From Reglan] AdvReac Rash/Hives Verified 12/13/19 22:02 Exam Osteopathic Statement: *. No significant issues noted on an osteopathic structural exam other than those noted in the History and Physical/Consult. Vital Signs Temp Pulse Resp BP Pulse Ox 12/14/19 01:53 97.5 F L 101 H 18 155/86 12/14/19 01:20 133/81 12/13/19 22:02 97.4 F L 97 18 185/111 95 Intake and Output 12/13/19 12/14/19 12/14/19 22:59 06:59 14:59 Other: # Voids 3 Weight 120.202 kg 120.202 kg Targeted state in general this is a well-nourished well-developed female in obvious anxious state, breathing is quick but nonlabored, heart is noted to have a regular rate and rhythm, abdomen is gravid and large for gestational age, heart tones were noted to be category 1 this morning, she is now sitting up and the is not able to be traced appropriately, she is not santino. Cervical exam is deferred as she has had contractions. Results Result Diagrams: 12/13/19 23:40 Abnormal Lab Results - Last 24 Hours (Table) 12/13/19 12/13/19 12/13/19 Range/Units 22:00 22:00 23:40 WBC (3.8-10.6) k/uL RDW (11.5-15.5) % Neutrophils # (1.3-7.7) k/uL AST 13 L (14-36) U/L Urine Appearance Cloudy H (Clear) Urine Protein 4+ H (Negative) Urine WBC 6 H (0-5) /hpf Ur Squamous Epith Cells 6 H (0-4) /hpf Urine Bacteria Many H (None) /hpf Hyaline Casts 3 H (0-2) /lpf Urine Mucus Few H (None) /hpf U Random Total Protein >600 H (<12) mg/dL 12/13/19 Range/Units 23:40 WBC 12.6 H (3.8-10.6) k/uL RDW 17.3 H (11.5-15.5) % Neutrophils # 9.0 H (1.3-7.7) k/uL AST (14-36) U/L Urine Appearance (Clear) Urine Protein (Negative) Urine WBC (0-5) /hpf Ur Squamous Epith Cells (0-4) /hpf Urine Bacteria (None) /hpf Hyaline Casts (0-2) /lpf Urine Mucus (None) /hpf U Random Total Protein (<12) mg/dL Assessment and Plan (1) Severe pre-eclampsia Current Visit: Yes Status: Acute Code(s): O14.10 - SEVERE PRE-ECLAMPSIA, UNSPECIFIED TRIMESTER SNOMED Code(s): 48439887 (2) Term Current Visit: Yes Status: Acute Code(s): Z34.90 - ENCNTR FOR SUPRVSN OF NORMAL , UNSP, UNSP TRIMESTER SNOMED Code(s): 83206128 Plan: This 29-year-old 1 para 0 at 39 and 2/sevenths weeks is admitted to labor and delivery with noted severe preeclampsia. Given patient's cervix being unfavorable, I did recommend primary as she is very remote from delivery. Although upset by this decision patient and to understand the reasoning behind it. Spinal anesthesia is reviewed questions are answered. Consents will be signed. We will proceed once anesthesia is available.
[2019-12-14] MEDS: LACTATED RINGERS 1,000 ML IV SCH ×4 (08:48→18:27)
[2019-12-14 09:11] LABS: INR 0.9 (<1.2); Partial Thromboplastin Time 24.7 sec (22.0-30.0); Prothrombin Time 9.3 sec (9.0-12.0)
[2019-12-14] MEDS ORDERED: CHLOROPROCAINE 3% 30 MG/ML 20 ML VIAL ONE (09:15)
[2019-12-14] MEDS ORDERED: fentaNYL (PF) 50 MCG/ML 2 ML AMP ONE (09:15)
[2019-12-14] MEDS ORDERED: PHENYLEPHRINE-0.9% NACL SYG 1 MG/10 ML SYRINGE ONE (09:15)
[2019-12-14] MEDS ORDERED: MORPHINE SULFATE (PF) 0.3 MG/0.3 ML SYR ONE (09:15)
[2019-12-14] MEDS ORDERED: OXYTOCIN 10 UNIT/ML 1 ML VIAL ONE (09:15)
[2019-12-14] MEDS ORDERED: ONDANSETRON 4 MG/2 ML VIAL ONE (09:15)
[2019-12-14] MEDS ORDERED: SIMETHICONE 80 MG CHEWABLE PO PRN (10:30)
[2019-12-14] MEDS ORDERED: diphenhydrAMINE 50 MG CAP PO PRN (10:30)
[2019-12-14] MEDS ORDERED: diphenhydrAMINE 25 MG CAP PO PRN (10:30)
[2019-12-14] MEDS ORDERED: diphenhydrAMINE 50 MG/ML 1 ML VIAL IVP PRN ×2 (10:30)
[2019-12-14] MEDS ORDERED: OXYTOCIN 20 UNITS/1000 ML NS 1,000 ML IV SCH (10:30)
[2019-12-14] MEDS ORDERED: NALOXONE 0.4 MG/ML 1 ML VIAL IV PRN (10:30)
[2019-12-14] MEDS ORDERED: ZOLPIDEM 5 MG TAB PO PRN (10:30)
[2019-12-14] MEDS ORDERED: ONDANSETRON 4 MG/2 ML VIAL IVP PRN (10:30)
[2019-12-14] MEDS ORDERED: METOCLOPRAMIDE 5 MG/ML 2 ML VIAL IVP PRN (10:30)
--- NOTE | 2019-12-14 10:35 | P.OP ---
Date of Procedure: 12/14/19 Preoperative Diagnosis: IUP at 39 and 2/sevenths weeks, severe preeclampsia remote from delivery Postoperative Diagnosis: Same Procedure(s) Performed: Primary low transverse section Anesthesia: epidural Surgeon: Eli Galvez Structural Metal Worker #1: Krissy Juarez Estimated Blood Loss (ml): 600 IV fluids (ml): 2,000 Urine output (ml): 100 Pathology: other (Placenta) Condition: stable Disposition: PACU Indications for Procedure: This 29-year-old 1 para 0 at 39-2/7 weeks presents to labor and delivery with complaints of regular labor, on initial blood pressures blood pressures are noted to be elevated significantly, preeclampsia labs were done spot protein creatinine ratio was noted to be too elevated to calculate. Patient on physical exam was noted to be fingertip to 1 cm dilated, remote from delivery. Blood pressures were discussed with the patient being 170s over 110s, remote from delivery. Discussion with patient regarding primary given known LGA, severe preeclampsia remote from delivery. Although frustrated patient states understanding of the need for primary Operative Findings: Normal uterus tubes and ovaries were appreciated, viable infant female delivered at 1004, weight of 8 pounds 15 ounces Description of Procedure: The patient was prepped and draped in the usual fashion after epidural anesthesia was administered by the anesthesia department. A Pfannenstiel incision was made and extended of the abdominal cavity without difficulty. The bladder peritoneum was elevated and incised and reflected distally. A 2 cm incision was made in the transverse plane of the lower uterine segment to enter the uterus at which time clear fluid was noted. The incision was extended in both directions using the bandage scissors. The head was encountered within the field and delivered up and through the incision where the nose and mouth were thoroughly suctioned. Remainder of the infant was delivered onto the surgical field where the cord was doubly clamped, cut, and the was passed for resuscitative measures with weight and Apgars as noted above. A segment of cord was then doubly clamped, cut, and set aside should cord gases become necessary. The placenta was delivered manually, intact, and was grossly normal with a grossly normal three-vessel cord. The uterus was exteriorized and the interior cavity of the uterus swept of any remaining placental and membranous fragments with a laparotomy sponge. The margins of the incision were grasped with Mock clamps and the incision closed in 2 layers. First layer was a running locking layer of 0 chromic catgut from margin to margin followed by a second layer of imbricating 0 chromic catgut from margin to margin. Any small points of bleeding were then made hemostatic with the Bovie. Once hemostasis was achieved, the posterior cul-de-sac was suctioned with a guard and the uterine and ovarian findings are as noted above. The uterus was replaced within the abdominal cavity and the gutters swept of any remaining blood fluid or clot. The incision was again reexamined and hemostasis was noted to be excellent. Any small point of bleeding were made hemostatic with the Bovie. Once hemostasis was achieved the parietal peritoneum was loosely reapproximated. The layer of muscles were examined and made hemostatic with the Bovie. Attention was then turned to the fascia which was closed with 2 running stitches of 0 Vicryl proceeding from the lateral margins to the midpoint. The subcutaneous tissues were irrigated, made hemostatic with the Bovie, and reapproximated with a running stitch of 30 vicryl. The skin was reapproximated with regular surgical diana. Estimated blood loss for the case was approximately 600 mL. All sponge instrument and needle counts are correct. There were no complications. The patient tolerated the procedure well and proceeded to the recovery room in stable condition. Both mother and infant are resting comfortably in recovery.
[2019-12-14] MEDS ORDERED: IBUPROFEN IV 800 MG in SODIUM CHLORIDE 0.9% 250 ML IV ONE (11:00)
[2019-12-14] MEDS ORDERED: ACETAMINOPHEN IV (For NPO) 1,000 MG in EMPTY BAG 1 BAG IVPB ONE (11:00)
[2019-12-14] MEDS: PRENATAL VIT-IRON-FOLIC ACID 1 EACH CAP PO SCH (13:45)
[2019-12-14] MEDS ORDERED: Rhogam IMMUNE GLOBULIN 1,500 UNIT/1 ML IM ONE (17:49)
[2019-12-14] MEDS: SENNOSIDES-DOCUSATE SODIUM 1 EACH TAB PO SCH (21:06)
[2019-12-14] MEDS: LABETALOL 100 MG TAB PO SCH (21:06)
[2019-12-14] MEDS: ACETAMINOPHEN TAB 325 MG TAB PO PRN (21:11)
[2019-12-15] MEDS: IBUPROFEN 600 MG TAB PO PRN ×4 (00:27→20:03)
[2019-12-15] MEDS: LACTATED RINGERS 1,000 ML IV SCH (03:09)
[2019-12-15] MEDS: SENNOSIDES-DOCUSATE SODIUM 1 EACH TAB PO SCH ×2 (07:47→20:03)
[2019-12-15] MEDS: LABETALOL 100 MG TAB PO SCH ×2 (07:47→20:03)
--- NOTE | 2019-12-15 07:56 | P.PNOBGPC ---
Subjective - Subjective Principal diagnosis: POD 1 LTCS severe preeclampsia Interval history: Patient did well last night. She states her nausea ceased overnight, Sánchez was removed and she has had a spontaneous void. She states her pain is well- controlled with oral ibuprofen and Tylenol. She is tolerating clear liquids without nausea or vomiting. She states her lochia is minimal. She is breast- feeding. Patient reports: Reports appetite normal, Reports voiding normally, Reports pain well controlled, Reports ambulating normally : doing well, nursing well Objective - Vital Signs Latest vital signs: Vital Signs Temp Pulse Resp BP Pulse Ox 12/15/19 04:00 98.3 F 80 16 132/78 98 12/14/19 21:00 98.3 F 75 16 130/82 12/14/19 20:00 98.3 F 66 16 124/83 97 12/14/19 17:53 98 F 82 16 128/89 100 12/14/19 16:00 98 F 115 H 16 136/101 99 12/14/19 14:45 134/81 12/14/19 12:43 77 16 147/90 98 12/14/19 12:15 96.6 F L 67 16 128/86 98 12/14/19 11:32 77 16 109/64 98 12/14/19 11:20 95 16 107/64 100 12/14/19 11:04 77 18 92/60 98 12/14/19 10:50 73 16 86/50 98 12/14/19 10:35 98.0 F 70 16 93/50 Intake and Output 12/14/19 12/15/19 12/15/19 22:59 06:59 14:59 Output Total 1100 Balance -1100 Output: Urine 1100 Uretheral (Sánchez) 100 Other: # Voids 2 - Exam Extremities: Present: normal, edema Abdomen: Present: normal appearance Incision: Present: normal, dry, intact Uterus: Present: normal, firm Assessment and Plan (1) Severe pre-eclampsia Current Visit: Yes Status: Acute Code(s): O14.10 - SEVERE PRE-ECLAMPSIA, UNSPECIFIED TRIMESTER SNOMED Code(s): 51892713 (2) Term Current Visit: Yes Status: Acute Code(s): Z34.90 - ENCNTR FOR SUPRVSN OF NORMAL , UNSP, UNSP TRIMESTER SNOMED Code(s): 27956795 (3) S/P section Current Visit: Yes Status: Acute Code(s): Z98.891 - HISTORY OF UTERINE SCAR FROM PREVIOUS SURGERY SNOMED Code(s): 902144120 Plan: This 29-year-old 1 now para 1 status post primary for severe preeclampsia is postoperative day #1. Patient is doing well postoperatively. We will encourage increased ambulation today. Pain control is discussed with this patient and she requests Tylenol/ibuprofen for discomfort. Oral labetalol was started last night for blood pressure control. Plan to continue routine postoperative care and anticipate discharge home tomorrow.
[2019-12-15 08:16] LABS: Anisocytosis Slight; Basophils % (A) 0 %; Eosinophils # (A) 0.1 k/uL (0-0.7); Eosinophils % (A) 1 %; HCT 33.2 % (34.0-46.0); HGB 10.9 gm/dL (11.4-16.0); Lymphocytes # (A) 1.8 k/uL (1.0-4.8); Lymphocytes % (A) 15 %; MCH 28.5 pg (25.0-35.0); MCHC 32.7 g/dL (31.0-37.0); MCV 87.1 fL (80.0-100.0); Mean Platelet Volume 9.4; Monocytes # (A) 0.7 k/uL (0-1.0); Monocytes % (A) 6 %; Neutrophils # (A) 9.2 k/uL (1.3-7.7); Neutrophils % (A) 77 %; Platelet Count 198 k/uL (150-450); RBC 3.81 m/uL (3.80-5.40); RDW 17.5 % (11.5-15.5)
[2019-12-15] MEDS: ACETAMINOPHEN TAB 325 MG TAB PO PRN ×3 (11:16→22:53)
--- NOTE | 2019-12-15 16:04 | P.PN ---
Progress Note - Text Progress Note Date: 12/15/19 Postoperative day 1 status post section under spinal anesthesia, and intrathecal morphine given for postoperative analgesia, patient doing well, there is no anesthesia related complications, Patient had no headache, vital signs stable , Assessment and plan= postop day 1 status post , doing well there is no anesthesia related complication.
[2019-12-15] MEDS: PRENATAL VIT-IRON-FOLIC ACID 1 EACH CAP PO SCH (22:54)
[2019-12-16] MEDS: IBUPROFEN 600 MG TAB PO PRN ×2 (01:57→07:37)
[2019-12-16] MEDS: ACETAMINOPHEN TAB 325 MG TAB PO PRN ×2 (05:50→11:16)
[2019-12-16] MEDS: PRENATAL VIT-IRON-FOLIC ACID 1 EACH CAP PO SCH (07:37)
[2019-12-16] MEDS: SENNOSIDES-DOCUSATE SODIUM 1 EACH TAB PO SCH (07:37)
[2019-12-16] MEDS: LABETALOL 100 MG TAB PO SCH (07:39)
[2019-12-16 07:47] VITALS: BP 144/92; PULSE 95; RESP 18; TEMP 98
--- NOTE | 2019-12-16 10:29 | P.DS ---
Providers Date of admission: 12/14/19 01:25 Expected date of discharge: 12/16/19 Attending physician: Eli Galvez Primary care physician: Stated None - Discharge Diagnosis(es) (1) Severe pre-eclampsia Current Visit: Yes Status: Acute (2) Term Current Visit: Yes Status: Acute (3) S/P section Current Visit: Yes Status: Acute Hospital Course: This is a 29-year-old 1 now para 1 that presented to labor and delivery at 30 927 weeks with complaints of contractions. Patient was noted to have blood pressures that were significantly elevated 160s 180s over 90s to 110. Patient was admitted and blood pressures were noted to recover slightly at rest 120s to 130s over 70s to 90s. Patient denied signs and symptoms of preeclampsia at that time. Preeclampsia labs were obtained, normal blood work was noted but on protein creatinine ratio was significantly elevated, noted to high to be calculated. Urine protein was noted to be 4+ on dip On exam patient was noted to be fingertip/thick/high given her remoteness from delivery and elevated blood pressures recommendation for primary was made. Although frustrated patient understood and was taken for primary low transverse section. was performed without difficulty for further details on the please see the operative report. Patient's postoperative course has been essentially uneventful. Oral labetalol was begun on postop day 0 for blood pressure control. Blood pressures have been 130s to 140s over 80s to 90s. Patient denies any signs or symptoms of preeclampsia. She states her lochia is minimal. She is breast-feeding. She is ambulating and voiding without difficulty on this postop day #2. She states she is feeling well and wishes to be discharged home. Patient Condition at Discharge: Good Plan - Discharge Summary New Discharge Prescriptions: No Action Pnv No.95/Ferrous Fum/Folic AC [ Multivitamin Tablet] 1 tab PO DAILY Famotidine [Pepcid] 40 mg PO HS Ferrous Sulfate [Iron] 325 mg PO DAILY Loratadine [Claritin] 1 tab PO DAILY valACYclovir [Valtrex] 500 mg PO BID Discharge Medication List Pnv No.95/Ferrous Fum/Folic AC [ Multivitamin Tablet] 1 tab PO DAILY 05/10/19 [History] Famotidine [Pepcid] 40 mg PO HS 11/28/19 [History] Ferrous Sulfate [Iron] 325 mg PO DAILY 11/28/19 [History] Loratadine [Claritin] 1 tab PO DAILY 12/13/19 [History] valACYclovir [Valtrex] 500 mg PO BID 12/14/19 [History] Follow up Appointment(s)/Referral(s): Eli Galvez DO [Doctor of Osteopathic Medicine] - 1 Week Patient Instructions/Handouts: (DC), (GEN) Discharge Disposition: HOME SELF-CARE
== END 2019-12-16 13:30 | disposition home or self-care (01) | DRG 788 ==
LOC: FBPOP 21:45 → 4FBP 12-14 01:25
PROVIDERS: ADMIT Obstetrics & Gynecology; ATTEND Obstetrics & Gynecology Obstetrics
PROC: 10D00Z1 Extraction of Products of Conception, Low, Open Approach (ICD-10-PCS; principal; 2019-12-14 09:25)
DX: O14.14 Severe pre-eclampsia complicating childbirth (principal); O99.344 Other mental disorders complicating childbirth; F41.0 Panic disorder [episodic paroxysmal anxiety]; J32.9 Chronic sinusitis, unspecified; Z37.0 Single live birth; Z3A.39 39 weeks gestation of pregnancy; Z85.820 Personal history of malignant melanoma of skin; Z90.89 Acquired absence of other organs; Z88.1 Allergy status to other antibiotic agents; Z88.5 Allergy status to narcotic agent; Z88.2 Allergy status to sulfonamides; Z88.8 Allergy status to other drugs, medicaments and biological substances
CPT/HCPCS: 59025; 81001; 82570; 84112; 84156; 84450; 84460; 84550; 85025; 85461; 85610; 85730; 86850; 86900; 86901; 88307; 99213

== ENCOUNTER 2019-12-17 19:44 | Inpatient (IN) | payer BC ==
[2019-12-17] MEDS ORDERED: SODIUM CHLORIDE 0.9% 1,000 ML IV STA (20:16)
[2019-12-17] MEDS ORDERED: SODIUM CHLORIDE 0.9% 500 ML 500 ML IV STA (20:16)
[2019-12-17 20:32] LABS: Appearance,Urine Clear (Clear); Bacteria,Urine Rare /hpf; Bilirubin,Urine Negative (Negative); Blood,Urine Moderate (Negative); Color,Urine Light Yellow; Glucose,Urine (UA) Negative (Negative); Ketones,Urine Negative (Negative); Leukocyte Esterase,Urine Negative (Negative); Nitrite,Urine Negative (Negative); PH, Urine 6.5 (5.0-8.0); Protein,Urine 1+ (Negative); RBC,Urine 59 /hpf (0-5); Specific Gravity,Urine 1.007 (1.001-1.035); Squamous Epithelial Cell,Urine 3 /hpf (0-4); Urobilinogen,Urine <2.0 mg/dL (<2.0); WBC,Urine 5 /hpf (0-5)
[2019-12-17 20:46] LABS: Anisocytosis Slight; Basophils % (A) 0 %; Eosinophils # (A) 0.3 k/uL (0-0.7); Eosinophils % (A) 3 %; HCT 32.8 % (34.0-46.0); HGB 10.6 gm/dL (11.4-16.0); Lymphocytes # (A) 1.9 k/uL (1.0-4.8); Lymphocytes % (A) 17 %; MCH 28.1 pg (25.0-35.0); MCHC 32.3 g/dL (31.0-37.0); MCV 86.9 fL (80.0-100.0); Monocytes # (A) 0.5 k/uL (0-1.0); Monocytes % (A) 4 %; Neutrophils % (A) 74 %; Platelet Count 279 k/uL (150-450); RBC 3.77 m/uL (3.80-5.40); RDW 17.5 % (11.5-15.5); WBC 10.8 k/uL (3.8-10.6)
[2019-12-17 20:58] LABS: INR 0.9 (<1.2); Partial Thromboplastin Time 23.6 sec (22.0-30.0); Prothrombin Time 9.3 sec (9.0-12.0)
[2019-12-17 20:59] LABS: ALT 23 U/L (4-34); AST 24 U/L (14-36); African American GFR (CKD) >90 (>60 ml/min/1.73 sqM); Albumin 3.2 g/dL (3.5-5.0); Alkaline Phosphatase 171 U/L (38-126); Anion Gap 7 mmol/L; Blood Urea Nitrogen 15 mg/dL (7-17); Calcium 8.6 mg/dL (8.4-10.2); Carbon Dioxide 21 mmol/L (22-30); Chloride 108 mmol/L (98-107); Glucose 91 mg/dL (74-99); LDH 647 U/L (313-618); Magnesium 1.8 mg/dL (1.6-2.3); Non-African American GFR(CKD) >90 (>60 ml/min/1.73 sqM); Phosphorus 4.1 mg/dL (2.5-4.5); Potassium 4.3 mmol/L (3.5-5.1); Sodium 136 mmol/L (137-145); Total Bilirubin 0.2 mg/dL (0.2-1.3); Total Protein 6.2 g/dL (6.3-8.2); Uric Acid 7.1 mg/dL (3.7-7.4)
[2019-12-17 21:09] LABS: D-Dimer 4.27 mg/L FEU (<0.60)
--- NOTE | 2019-12-17 21:18 | ED ---
Dizziness HPI - General Chief Complaint: Dizziness Stated Complaint: Post Op High Blood Pressure Time Seen by Provider: 12/17/19 20:09 Source: patient, RN notes reviewed, old records reviewed Mode of arrival: wheelchair Limitations: no limitations - History of Present Illness Initial Comments: This is a 29-year-old female DF for evaluation patient having severe shortness of breath especially with ambulation. Tachycardia with movement. No chest pain shortness of breath has been persistent patient's positive nausea vomiting with recent diagnosis of preeclampsia severe, blood pressures been running high and she does not feel well. No fevers but does have generalized pain, feels weak and L Complaint: dizziness, near syncope -: days(s) Timing: sudden onset Description: lightheadedness History of Same: Yes History of Trauma: Yes Severity: moderate Improves With: nothing Worsens With: nothing Associated Symptoms: denies other symptoms - Related Data Home Medications Medication Instructions Recorded Confirmed Acetaminophen [Tylenol Extra 500 mg PO Q6H PRN 12/17/19 12/17/19 Strength] Ibuprofen [Motrin] 600 mg PO Q6H PRN 12/17/19 12/17/19 Previous Rx's Medication Instructions Recorded Carvedilol [Coreg] 25 mg PO BID #60 tablet 12/19/19 Furosemide [Lasix] 40 mg PO DAILY #30 tablet 12/19/19 Spironolactone [Aldactone] 25 mg PO DAILY #30 tab 12/19/19 hydrALAZINE HCL [Apresoline] 50 mg PO BID #60 tab 12/19/19 Allergies Allergy/AdvReac Type Severity Reaction Status Date / Time erythromycin base Allergy Unknown Rash/Hives Verified 12/17/19 21:48 amoxicillin [From Augmentin] AdvReac Severe Abdominal Verified 12/17/19 21:48 Pain clavulanic acid AdvReac Severe Abdominal Verified 12/17/19 21:48 [From Augmentin] Pain hydrocodone bitartrate AdvReac Severe Nausea & Verified 12/17/19 21:48 [From Vicodin] Vomiting sulfamethoxazole AdvReac Severe mouth sores Verified 12/17/19 21:48 [From Bactrim] trimethoprim [From Bactrim] AdvReac Severe mouth sores Verified 12/17/19 21:48 dextromethorphan AdvReac Intermediate Abdominal Verified 12/17/19 21:48 Pain promethazine [From Phenergan] AdvReac Intermediate Abdominal Verified 12/17/19 2 1:48 Pain acetaminophen [From Vicodin] AdvReac Nausea & Verified 12/17/19 21:48 Vomiting hydrocodone [From Vicodin] AdvReac Nausea & Verified 12/17/19 21:48 Vomiting metoclopramide [From Reglan] AdvReac Rash/Hives Verified 12/17/19 21:48 Review of Systems ROS Statement: Those systems with pertinent positive or pertinent negative responses have been documented in the HPI. ROS Other: All systems not noted in ROS Statement are negative. Past Medical History Additional Past Medical History / Comment(s): chronic sinusitis, chiari History of Any Multi-Drug Resistant Organisms: None Reported Past Surgical History: Tonsillectomy Additional Past Surgical History / Comment(s): benign melanoma removed. Chiari surgery in November at [place] Past Anesthesia/Blood Transfusion Reactions: No Reported Reaction Past Psychological History: Anxiety Smoking Status: Never smoker Past Alcohol Use History: None Reported Past Drug Use History: None Reported - Past Family History Mother Family Medical History: No Reported History Father Family Medical History: No Reported History General Exam Limitations: no limitations General appearance: alert, anxious, in distress Head exam: Present: atraumatic, normocephalic, normal inspection Eye exam: Present: normal appearance, PERRL, EOMI. Absent: scleral icterus, conjunctival injection, periorbital swelling ENT exam: Present: normal exam, mucous membranes moist Neck exam: Present: normal inspection. Absent: tenderness, meningismus, lymphadenopathy Respiratory exam: Present: rales, accessory muscle use, decreased breath sounds, prolonged expiratory. Absent: respiratory distress, wheezes, rhonchi, stridor Cardiovascular Exam: Present: normal rhythm, tachycardia, normal heart sounds. Absent: systolic murmur, diastolic murmur, rubs, gallop, clicks GI/Abdominal exam: Present: soft, normal bowel sounds. Absent: distended, tenderness, guarding, rebound, rigid Extremities exam: Present: normal inspection, full ROM, normal capillary refill. Absent: tenderness, pedal edema, joint swelling, calf tenderness Back exam: Present: normal inspection Neurological exam: Present: alert, oriented X3, CN II-XII intact Psychiatric exam: Present: normal affect, normal mood Skin exam: Present: warm, dry, intact, normal color. Absent: rash Course Vital Signs 12/17/19 12/17/19 12/17/19 19:59 20:05 20:56 Temperature 98.4 F Pulse Rate 104 H 100 98 Pulse Rate [ Engineering Director ] Respiratory 18 20 18 Rate Blood Pressure 138/104 161/113 150/101 Blood Pressure [Right Arm] O2 Sat by Pulse 96 99 97 Oximetry 12/17/19 12/17/19 12/17/19 21:18 21:20 21:24 Temperature Pulse Rate Pulse Rate [ 100 Engineering Director ] Respiratory 18 Rate Blood Pressure 152/102 Blood Pressure [Right Arm] O2 Sat by Pulse Oximetry 12/17/19 12/17/19 12/17/19 22:00 22:33 22:47 Temperature Pulse Rate 102 H 98 96 Pulse Rate [ Engineering Director ] Respiratory 18 Rate Blood Pressure 150/103 143/95 145/99 Blood Pressure [Right Arm] O2 Sat by Pulse 98 97 97 Oximetry 12/17/19 12/18/19 12/18/19 23:47 00:10 00:15 Temperature 98.6 F Pulse Rate Pulse Rate [ 105 H Engineering Director ] Respiratory 16 Rate Blood Pressure 156/117 153/107 Blood Pressure 170/117 [Right Arm] O2 Sat by Pulse 97 Oximetry - Reevaluation(s) Reevaluation #1: 12/17/19 23:19 Medical record is reviewed - Consultations Consultation #1: abhijeet w MT Gutierrez regarding patient, Dr. Juarez also aware of patient's condition Procedures - [place] Protocol (Time Out) Nurse: Ilene Olivas Medical Decision Making - Medical Decision Making 29 female DF for evaluation patient Dese for evaluation regarding significant shortness of breath cardiomyopathy CHF and severe preeclampsia will admit for magnesium diuresis and cardiology to evaluate blood pressure control - Lab Data Result diagrams: 12/19/19 05:46 12/19/19 05:46 Lab Results 12/17/19 12/17/19 12/17/19 Range/Units 20:23 20:33 20:33 WBC 10.8 H (3.8-10.6) k/uL RBC 3.77 L (3.80-5.40) m/uL Hgb 10.6 L (11.4-16.0) gm/dL Hct 32.8 L (34.0-46.0) % MCV 86.9 (80.0-100.0) fL MCH 28.1 (25.0-35.0) pg MCHC 32.3 (31.0-37.0) g/dL RDW 17.5 H (11.5-15.5) % Plt Count 279 (150-450) k/uL Neutrophils % 74 % Lymphocytes % 17 % Monocytes % 4 % Eosinophils % 3 % Basophils % 0 % Neutrophils # 8.0 H (1.3-7.7) k/uL Lymphocytes # 1.9 (1.0-4.8) k/uL Monocytes # 0.5 (0-1.0) k/uL Eosinophils # 0.3 (0-0.7) k/uL Basophils # 0.0 (0-0.2) k/uL Anisocytosis Slight PT 9.3 (9.0-12.0) sec INR 0.9 (<1.2) APTT 23.6 (22.0-30.0) sec D-Dimer 4.27 H (<0.60) mg/L FEU Sodium (137-145) mmol/L Potassium (3.5-5.1) mmol/L Chloride (98-107) mmol/L Carbon Dioxide (22-30) mmol/L Anion Gap mmol/L BUN (7-17) mg/dL Creatinine (0.52-1.04) mg/dL Est GFR (CKD-EPI)AfAm (>60 ml/min/1.73 sqM) Est GFR (CKD-EPI)NonAf (>60 ml/min/1.73 sqM) Glucose (74-99) mg/dL Plasma Lactic Acid Nikolai (0.7-2.0) mmol/L Uric Acid (3.7-7.4) mg/dL Calcium (8.4-10.2) mg/dL Phosphorus (2.5-4.5) mg/dL Magnesium (1.6-2.3) mg/dL Total Bilirubin (0.2-1.3) mg/dL AST (14-36) U/L ALT (4-34) U/L Alkaline Phosphatase (38-126) U/L Lactate Dehydrogenase (313-618) U/L Troponin I (0.000-0.034) ng/mL NT-Pro-B Natriuret Pep pg/mL Total Protein (6.3-8.2) g/dL Albumin (3.5-5.0) g/dL Urine Color Light Yellow Urine Appearance Clear (Clear) Urine pH 6.5 (5.0-8.0) Ur Specific [place] 1.007 (1.001-1.035) Urine Protein 1+ H (Negative) Urine Glucose (UA) Negative (Negative) Urine Ketones Negative (Negative) Urine Blood Moderate H (Negative) Urine Nitrite Negative (Negative) Urine Bilirubin Negative (Negative) Urine Urobilinogen <2.0 (<2.0) mg/dL Ur Leukocyte Esterase Negative (Negative) Urine RBC 59 H (0-5) /hpf Urine WBC 5 (0-5) /hpf Ur Squamous Epith Cells 3 (0-4) /hpf Urine Bacteria Rare H (None) /hpf Blood Type Blood Type Recheck Bld Type Recheck Status Antibody Screen Antibody Identification Direct Antiglob Test Spec Expiration Date 12/17/19 12/17/19 12/17/19 Range/Units 20:33 20:33 20:33 WBC (3.8-10.6) k/uL RBC (3.80-5.40) m/uL Hgb (11.4-16.0) gm/dL Hct (34.0-46.0) % MCV (80.0-100.0) fL MCH (25.0-35.0) pg MCHC (31.0-37.0) g/dL RDW (11.5-15.5) % Plt Count (150-450) k/uL Neutrophils % % Lymphocytes % % Monocytes % % Eosinophils % % Basophils % % Neutrophils # (1.3-7.7) k/uL Lymphocytes # (1.0-4.8) k/uL Monocytes # (0-1.0) k/uL Eosinophils # (0-0.7) k/uL Basophils # (0-0.2) k/uL Anisocytosis PT (9.0-12.0) sec INR (<1.2) APTT (22.0-30.0) sec D-Dimer (<0.60) mg/L FEU Sodium 136 L (137-145) mmol/L Potassium 4.3 (3.5-5.1) mmol/L Chloride 108 H (98-107) mmol/L Carbon Dioxide 21 L (22-30) mmol/L Anion Gap 7 mmol/L BUN 15 (7-17) mg/dL Creatinine 0.76 (0.52-1.04) mg/dL Est GFR (CKD-EPI)AfAm >90 (>60 ml/min/1.73 sqM) Est GFR (CKD-EPI)NonAf >90 (>60 ml/min/1.73 sqM) Glucose 91 (74-99) mg/dL Plasma Lactic Acid Nikolai 1.0 (0.7-2.0) mmol/L Uric Acid 7.1 (3.7-7.4) mg/dL Calcium 8.6 (8.4-10.2) mg/dL Phosphorus 4.1 (2.5-4.5) mg/dL Magnesium 1.8 (1.6-2.3) mg/dL Total Bilirubin 0.2 (0.2-1.3) mg/dL AST 24 (14-36) U/L ALT 23 (4-34) U/L Alkaline Phosphatase 171 H (38-126) U/L Lactate Dehydrogenase 647 H (313-618) U/L Troponin I (0.000-0.034) ng/mL NT-Pro-B Natriuret Pep pg/mL Total Protein 6.2 L (6.3-8.2) g/dL Albumin 3.2 L (3.5-5.0) g/dL Urine Color Urine Appearance (Clear) Urine pH (5.0-8.0) Ur Specific [place] (1.001-1.035) Urine Protein (Negative) Urine Glucose (UA) (Negative) Urine Ketones (Negative) Urine Blood (Negative) Urine Nitrite (Negative) Urine Bilirubin (Negative) Urine Urobilinogen (<2.0) mg/dL Ur Leukocyte Esterase (Negative) Urine RBC (0-5) /hpf Urine WBC (0-5) /hpf Ur Squamous Epith Cells (0-4) /hpf Urine Bacteria (None) /hpf Blood Type O Negative Blood Type Recheck O Neg Bld Type Recheck Status No Antibody Screen POSITIVE Antibody Identification Anti-D Direct Antiglob Test Negative Spec Expiration Date 12/20/2019 - 233212/17/19 12/17/19 Range/Units 20:33 20:33 WBC (3.8-10.6) k/uL RBC (3.80-5.40) m/uL Hgb (11.4-16.0) gm/dL Hct (34.0-46.0) % MCV (80.0-100.0) fL MCH (25.0-35.0) pg MCHC (31.0-37.0) g/dL RDW (11.5-15.5) % Plt Count (150-450) k/uL Neutrophils % % Lymphocytes % % Monocytes % % Eosinophils % % Basophils % % Neutrophils # (1.3-7.7) k/uL Lymphocytes # (1.0-4.8) k/uL Monocytes # (0-1.0) k/uL Eosinophils # (0-0.7) k/uL Basophils # (0-0.2) k/uL Anisocytosis PT (9.0-12.0) sec INR (<1.2) APTT (22.0-30.0) sec D-Dimer (<0.60) mg/L FEU Sodium (137-145) mmol/L Potassium (3.5-5.1) mmol/L Chloride (98-107) mmol/L Carbon Dioxide (22-30) mmol/L Anion Gap mmol/L BUN (7-17) mg/dL Creatinine (0.52-1.04) mg/dL Est GFR (CKD-EPI)AfAm (>60 ml/min/1.73 sqM) Est GFR (CKD-EPI)NonAf (>60 ml/min/1.73 sqM) Glucose (74-99) mg/dL Plasma Lactic Acid Nikolai (0.7-2.0) mmol/L Uric Acid (3.7-7.4) mg/dL Calcium (8.4-10.2) mg/dL Phosphorus (2.5-4.5) mg/dL Magnesium (1.6-2.3) mg/dL Total Bilirubin (0.2-1.3) mg/dL AST (14-36) U/L ALT (4-34) U/L Alkaline Phosphatase (38-126) U/L Lactate Dehydrogenase (313-618) U/L Troponin I 0.023 (0.000-0.034) ng/mL NT-Pro-B Natriuret Pep 2230 pg/mL Total Protein (6.3-8.2) g/dL Albumin (3.5-5.0) g/dL Urine Color Urine Appearance (Clear) Urine pH (5.0-8.0) Ur Specific [place] (1.001-1.035) Urine Protein (Negative) Urine Glucose (UA) (Negative) Urine Ketones (Negative) Urine Blood (Negative) Urine Nitrite (Negative) Urine Bilirubin (Negative) Urine Urobilinogen (<2.0) mg/dL Ur Leukocyte Esterase (Negative) Urine RBC (0-5) /hpf Urine WBC (0-5) /hpf Ur Squamous Epith Cells (0-4) /hpf Urine Bacteria (None) /hpf Blood Type Blood Type Recheck Bld Type Recheck Status Antibody Screen Antibody Identification Direct Antiglob Test Spec Expiration Date - Radiology Data Radiology results: report reviewed (CT chest showed no PE but pulmonary edema), image reviewed Critical Care Time Critical Care Time: Yes Total Critical Care Time: 31 Disposition Clinical Impression: Severe pre-eclampsia, CHF (congestive heart failure), Cardiomyopathy, Weakness Disposition: ADMITTED IP TO THIS [facility] Condition: Serious Is patient prescribed a controlled substance at d/c from ED?: No
--- NOTE | 2019-12-17 22:04 | CT ---
EXAMINATION TYPE: CT angio chest DATE OF EXAM: 12/17/2019 COMPARISON: 05/07/2018 HISTORY: chest pain and high BP [address] DLP: 693.7 mGycm Automated exposure control for dose reduction was used. CONTRAST: Performed with IV Contrast, patient injected with 75cc mL of Isovue 370. There is some diffuse pulmonary interstitial edema. There is some groundglass posterior pulmonary inf iltrates. Heart is borderline enlarged. There is no pericardial effusion. There are no hilar masses. There is no mediastinal adenopathy. There are small pleural effusions. There is normal contrast opacification of the pulmonary arteries. There are no filling defects. Thora cic aorta shows no sign of aneurysm or dissection. The bony thorax appears intact. IMPRESSION: No evidence of pulmonary embolism. There is bilateral pleural effusions and pulmonary interstitial ed henry that is new compared to old exam.
[2019-12-17] MEDS ORDERED: LABETALOL 5 MG/ML VIAL MDV IVP STA ×2 (22:09→23:17)
[2019-12-17] MEDS ORDERED: IBUPROFEN 600 MG TAB PO STA (22:11)
[2019-12-17] MEDS ORDERED: NITROGLYCERIN SL TABS 0.4 MG TAB SUBLINGUAL PRN (23:14)
[2019-12-17] MEDS ORDERED: ASPIRIN 81 MG PO STA (23:14)
[2019-12-17] MEDS ORDERED: FUROSEMIDE 10 MG/ML 4 ML VIAL IV STA (23:17)
[2019-12-17] MEDS ORDERED: ALPRAZolam 0.25 MG TAB PO STA (23:46)
[2019-12-17] MEDS ORDERED: hydrALAZINE HCL 20 MG/ML 1 ML VIAL IVP PRN (23:55)
[2019-12-17] MEDS ORDERED: TEMAZEPAM 15 MG CAP PO PRN (23:55)
--- NOTE | 2019-12-18 00:07 | XR ---
EXAMINATION TYPE: XR chest 1V portable DATE OF EXAM: 12/17/2019 COMPARISON: 05/24/2018 HISTORY: Short of breath. TECHNIQUE: FINDINGS: There is some pulmonary interstitial edema. Heart size is normal. There are no hilar masses . There is no definite pleural effusion. IMPRESSION: There is new pulmonary interstitial edema compared to old exam that is nonspecific. This could be acute heart failure.
[2019-12-18] MEDS: MAGNESIUM SULFATE-D5W PMX 1 GM in DEXTROSE/WATER 1 100ML.BAG IVPB SCH ×4 (00:12→05:53)
[2019-12-18] MEDS: amLODIPine 10 MG TAB PO SCH ×2 (02:26→19:15)
[2019-12-18] MEDS: PANTOPRAZOLE 40 MG/10 ML VIAL IVP SCH ×2 (02:28→08:56)
[2019-12-18] MEDS: HEPARIN SODIUM,PORCINE 5,000 UNIT/ML 1 ML VIAL SQ SCH ×4 (02:28→22:19)
[2019-12-18 03:16] LABS: Anisocytosis Slight; Basophils % (A) 0 %; Eosinophils # (A) 0.2 k/uL (0-0.7); Eosinophils % (A) 2 %; HCT 32.3 % (34.0-46.0); HGB 10.3 gm/dL (11.4-16.0); Lymphocytes # (A) 1.8 k/uL (1.0-4.8); Lymphocytes % (A) 19 %; MCH 28.1 pg (25.0-35.0); MCV 88.1 fL (80.0-100.0); Mean Platelet Volume 8.1; Monocytes # (A) 0.4 k/uL (0-1.0); Monocytes % (A) 5 %; Neutrophils # (A) 6.8 k/uL (1.3-7.7); Neutrophils % (A) 72 %; Platelet Count 280 k/uL (150-450); RBC 3.66 m/uL (3.80-5.40); RDW 17.6 % (11.5-15.5); WBC 9.4 k/uL (3.8-10.6)
[2019-12-18 03:35] LABS: Cholesterol 250 mg/dL (<200); HDL Cholesterol 46 mg/dL (40-60); Triglycerides 472 mg/dL (<150)
[2019-12-18 03:36] LABS: African American GFR (CKD) >90 (>60 ml/min/1.73 sqM); Anion Gap 6 mmol/L; Blood Urea Nitrogen 13 mg/dL (7-17); Calcium 8.5 mg/dL (8.4-10.2); Carbon Dioxide 27 mmol/L (22-30); Chloride 105 mmol/L (98-107); Glucose 108 mg/dL (74-99); Non-African American GFR(CKD) >90 (>60 ml/min/1.73 sqM); Potassium 4.6 mmol/L (3.5-5.1); Sodium 138 mmol/L (137-145)
--- NOTE | 2019-12-18 05:09 | HP ---
HISTORY AND PHYSICAL DATE OF SERVICE: 12/17/2019 CHIEF COMPLAINT: Dizziness and hypertension and shortness of breath. HISTORY OF PRESENT ILLNESS: This 29-year-old woman with a past medical history of chronic sinusitis and Arnold- Chiari malformation, history of benign melanoma, history of Arnold-Chiari surgery in [facility] and history of anxiety, being followed by Dr. Mcdonald in the outpatient setting, recently had a section. The patient underwent primary low- transverse section on 12/14/2019 for severe preeclampsia remote from delivery. The patient tolerated the procedure and went home, but subsequently patient had increased shortness of breath and generalized swelling and also feeling dizzy. The blood pressure was found to be 170/120. Because of lack of improvement, the patient came to [facility] and admitted for further evaluation and treatment. A chest CTA which was reviewed personally by me showed which was done in the ER showed no evidence of any pulmonary embolism; bilateral pleural effusion and pulmonary interstitial edema was also noted. The patient was admitted for further evaluation and treatment. There is no history of fever or rigors. No history of headache, loss of consciousness, or seizures at this time. PAST MEDICAL HISTORY: History of chronic sinus, Chiari malformation and surgery, history of anxiety, section delivery. MEDICATIONS: Home medications are. 1. Trandate 100 mg p.o. b.i.d. 2. Motrin 600 mg q.6 p.r.n. 3. Tylenol p.r.n. ALLERGIES: ERYTHROMYCIN, AMOXICILLIN, CLAVULANIC ACID, HYDROCODONE, SULFAMETHOXAZOLE, BACTRIM, PHENERGAN, VICODIN, REGLAN. FAMILY HISTORY: No history of heart disease or strokes in the family. SOCIAL HISTORY: History of smoking. No history of alcohol intake. REVIEW OF SYSTEMS: ENT: No diminished hearing or diminished vision. CARDIOVASCULAR SYSTEM: As mentioned earlier. RESPIRATORY SYSTEM: As mentioned earlier. GI: No nausea. : As mentioned earlier. NERVOUS SYSTEM: No numbness or weakness. ALLERGY/IMMUNOLOGY: No asthma or hayfever. MUSCULOSKELETAL: As mentioned earlier. HEMATOLOGY/ONCOLOGY: No history of anemia. ENDOCRINE: No history of diabetes or hypothyroidism. CONSTITUTIONAL: As mentioned earlier. DERMATOLOGY: Negative. RHEUMATOLOGY: Negative. PSYCHIATRY: As mentioned earlier. PHYSICAL EXAMINATION: The patient is alert and oriented x3. Pulse 102, blood pressure 150/103, respiration 18, temperature normal, pulse ox 98% on 2 L. HEENT: Conjunctivae normal. Oral mucosa moist. NECK: No jugular venous distention. No carotid bruit. No lymph node enlargement. CARDIOVASCULAR: S1, S2 muffled. S3 . Ejection systolic murmur present. RESPIRATORY: Breath sounds diminished at the bases. Few scattered rhonchi and crackles in the bases. ABDOMEN: Soft, obese. Otherwise, status post section. LEGS: Minimal bilateral leg edema. NERVOUS SYSTEM: Higher function as mentioned earlier. Moves all 4 limbs. No focal motor or sensory deficits. LYMPHATICS: No lymphadenopathy of the neck, axillae or groin. SKIN: No ulcer, rash or bleeding. JOINTS: No active deforming arthropathy. LABS: WBC 10.8, hemoglobin 10.6, platelets are 279. Sodium 136 and LDH is 647. Albumin is 3.2. UA noted. Chest x-ray noted. EKG ST-T changes. ASSESSMENT: 1. Shortness of breath with possibly congestive heart failure acute exacerbation, possibly secondary to peripartum cardiomyopathy. 2. History of recent section for severe preeclampsia. 3. Hyponatremia. 4. Increased WBC. 5. Anemia, normocytic secondary to . 6. Elevated D-dimer without any evidence of any pulmonary embolism. 7. History of anxiety. 8. History of tonsillectomy. 9. History of chronic sinusitis. 10.History of Arnold-Chiari malformation and surgery recently. 11.Obesity with body mass of 42.8. RECOMMENDATIONS AND DISCUSSION: This 29-year-old woman who presented with multiple complex medical issues, we will monitor the patient closely. Continue the current medications. Continue symptomatic treatment. Will initiate IV diuretics. Otherwise control the blood pressure. Labetalol will be continued and will also add beta blockers. Will also add Norvasc to the current regimen. Otherwise a 2D echo with Doppler. Repeat labs. There is no evidence of any HELLP syndrome, but we will closely monitor along with LEAD NITRATE PROC[employer]OR. Prognosis guarded because of multiple complex medical issues. Further recommendations to follow. A copy of dictation forwarded to Dr. Mcdonald who is the primary physician. MMODL / JASMINN: [id number] / MTDD
[2019-12-18] MEDS: ALPRAZolam 0.25 MG TAB PO PRN (06:18)
[2019-12-18] MEDS: FUROSEMIDE 10 MG/ML 4 ML VIAL IV SCH ×2 (08:55→22:02)
[2019-12-18] MEDS: ASPIRIN 81 MG PO SCH (08:55)
[2019-12-18] MEDS ORDERED: METOPROLOL TARTRATE 50 MG TAB PO SCH (09:00)
[2019-12-18] MEDS ORDERED: ASPIRIN 325 MG TAB PO SCH (09:00)
[2019-12-18] MEDS ORDERED: LABETALOL 200 MG TAB PO SCH ×2 (09:00→16:00)
[2019-12-18 09:37] LABS: Magnesium 2.5 mg/dL (1.6-2.3)
[2019-12-18] MEDS: IBUPROFEN 200 MG TAB PO PRN ×2 (10:29→17:58)
--- NOTE | 2019-12-18 10:40 | CONS ---
CONSULTATION Mrs. Tejeda is a 29-year-old female who underwent last week, had preeclampsia, was sent home and at home, was noted to have an elevated blood pressure and because of that, she came into the emergency room and subsequently admitted. She has a prior history of Arnold-Chiari malformation, status post surgical intervention. She has no history of cardiac disease. She has no history of hypertension until recently. At home, she noted her blood pressure to be elevated and she had evidence of progressive dyspnea and worsening edema. She denies any chest discomfort. She has some dizziness or palpitation. No syncope. The patient prior to that had no cardiac history or history of hypertension. She was started on labetalol 100 mg twice a day following her . She is usually active physically without any difficulty. MEDICATION: At the time of admission at this time included labetalol 100 mg twice a day, ibuprofen on a p.r.n. basis. Her coronary risk factors negative for history of smoking. She is nondiabetic. No hyperlipidemia. REVIEW OF SYSTEMS: RESPIRATORY SYSTEM: She had dyspnea on exertion, no recent wheezing, cough, no fever. GI SYSTEM: No recent GI bleeding, no peptic ulcer disease. SYSTEM: No dysuria or hematuria. NERVOUS SYSTEM: No stroke or seizure. PHYSICAL EXAMINATION: She is a 29-year-old with a year old lady, alert, oriented, in no apparent distress. On presentation, her blood pressure was up in the 160/110, this morning is 140/80 with a heart rate in the 100 sinus, afebrile. HEAD: Normocephalic. EYES: Sclerae nonicteric. NECK: Good upstroke, no bruit. No jugular venous distention. LUNGS: Clear to auscultation. HEART: Regular rate and rhythm, S1, S2, plus S3. No murmur or rub. ABDOMEN: Soft, mild tenderness. Positive bowel sounds. EXTREMITIES: 1+ edema. LAB DATA: Revealed a BUN and creatinine of 13 and 0.85. Her troponin 0.023 and 0.022. NT proBNP 2230. Her cholesterol is 250, triglycerides of 472. Her hemoglobin is 10.3, white blood cell of 9.4. Her chest x-ray revealed evidence of fluid overload. Her chest CT revealed no evidence of pulmonary embolism with bilateral pleural effusion. IMPRESSION: 1. Symptoms of progressive dyspnea with evidence of congestive heart failure, could be related to cardiomyopathy. 2. Preeclampsia with hypertension. 3. Recent . 4. History of Arnold-Chiari surgery. RECOMMENDATION: From the cardiac standpoint, I will switch her back to the labetalol. Continue rest of her medical regimen. Will review the results for echocardiogram. Will follow her renal function. Depending on the results of her echocardiogram, we may stop the amlodipine and switch her to an BOBO inhibitor. Patient is breast-feeding at this time. I have discussed with the patient those findings. Thank you for this consult. Will follow with you. MMERLINL / IJN: [id number] /
--- NOTE | 2019-12-18 11:17 | ECHOF ---
Referral Reason:chf MEASUREMENTS -------- HEIGHT: 165.1 cm WEIGHT: 115.2 kg BP: 140/87 RVIDd: 2.9 cm (< 3.3) IVSd: 1.3 cm (0.6 - 1.1) LVIDd: 5.4 cm (3.9 - 5.3) LVPWd: 1.3 cm (0.6 - 1.1) IVSs: 1.6 cm LVIDs: 4.0 cm LVPWs: 1.9 cm LA Diam: 3.7 cm (2.7 - 3.8) LAESV Index (A-L): 36.91 ml/m Ao Diam: 3.4 cm (2.0 - 3.7) AV Cusp: 1.6 cm (1.5 - 2.6) MV EXCURSION: 15.184 mm (> 18.000) MV EF SLOPE: 45 mm/s (70 - 150) EPSS: 1.7 cm MV E Bridger: 1.36 m/s MV DecT: 158 ms MV A Bridger: 0.76 m/s MV E/A Ratio: 1.80 RAP: 5.00 mmHg RVSP: 42.35 mmHg FINDINGS -------- This was a technically good study. The left ventricle is mildly dilated. There is mild concentric left ventricular hypertrophy. Over all left ventricular systolic function is mildly impaired with, an EF between 45 - 50 %. The right ventricle is normal in size. LA is moderately dilated 34-39 ml/m2 The right atrium is normal in size. Interatrial and interventricular septum intact. The aortic valve is trileaflet and appears structurally normal. Trace to mild aortic regurgitation. Moderate mitral regurgitation is present. Mild tricuspid regurgitation present. There is mild pulmonary hypertension. The right ventricular systolic pressure, as measured by Doppler, is 42.35mmHg. There is no pulmonic regurgitation present. The aortic root size is normal. Normal inferior vena cava with normal inspiratory collapse consistent with estimated right atrial pre ssure of 5 mmHg. There is no pericardial effusion. CONCLUSIONS -------- 1. This was a technically good study. 2. The left ventricle is mildly dilated. 3. There is mild concentric left ventricular hypertrophy. 4. Overall left ventricular systolic function is mildly impaired with, an EF between 45 - 50 %. 5. The right ventricle is normal in size. 6. LA is moderately dilated 34-39 ml/m2 7. The right atrium is normal in size. 8. Interatrial and interventricular septum intact. 9. The aortic valve is trileaflet and appears structurally normal. 10. Trace to mild aortic regurgitation. 11. Moderate mitral regurgitation is present. 12. Mild tricuspid regurgitation present. 13. There is mild pulmonary hypertension. 14. The right ventricular systolic pressure, as measured by Doppler, is 42.35mmHg. 15. There is no pulmonic regurgitation present. 16. The aortic root size is normal. 17. Normal inferior vena cava with normal inspiratory collapse consistent with estimated right atrial pressure of 5 mmHg. 18. There is no pericardial effusion. PLASMA CENTER NURSE: Linda Maurer RDCS
--- NOTE | 2019-12-18 11:41 | P.PN ---
Subjective 29-year-old female was admitted secondary to elevated blood pressure and possible cardiomyopathy. Patient is being continued on Lasix patient probably related to be switched BOBO inhibitor her EF is around the 45-50%. Patient is still short of breath heart rate in the pressure still high I'm increasing the labetalol to 300 3 times a day. Constitutional: Denied any fatigue denied any fever. Cardio vascular: denied any chest pain, palpitations Gastrointestinal denied any nausea vomiting Pulmonary: Shortness of breath is much better Neurologic denied any new focal deficits All inpatient medications were reviewed and appropriate changes in these medications as dictated in the interval history and assessment and plan. Objective - Vital Signs Vital signs: Vital Signs Temp 97.9 F 12/18/19 08:00 Pulse 107 H 12/18/19 08:00 Resp 18 12/18/19 08:00 BP 137/96 12/18/19 08:00 Pulse Ox 98 12/18/19 08:00 Intake & Output 12/17/19 12/18/19 12/18/19 18:59 06:59 18:59 Intake Total 240 Output Total 800 1300 Balance -800 -1060 Weight 115.5 kg Intake: Oral 240 Output: Urine 800 1300 Other: # Voids 1 - Exam PHYSICAL EXAMINATION: GENERAL: The patient is alert and oriented x3, not in any acute distress. Well developed, well nourished. Obese HEENT: Pupils are round and equally reacting to light. EOMI. No scleral icterus. No conjunctival pallor. Normocephalic, atraumatic. No pharyngeal erythema. No thyromegaly. CARDIOVASCULAR: S1 and S2 present. No murmurs, rubs, or gallops. PULMONARY: Chest is clear to auscultation, no wheezing or crackles. ABDOMEN: Soft, nontender, nondistended, normoactive bowel sounds. No palpable organomegaly. MUSCULOSKELETAL: No joint swelling or deformity. EXTREMITIES: No cyanosis, clubbing, or pedal edema. NEUROLOGICAL: Gross neurological examination did not reveal any focal deficits. SKIN: No rashes. - Labs CBC & Chem 7: 12/18/19 02:55 12/18/19 02:55 Labs: Abnormal Lab Results - Last 24 Hours (Table) 12/17/19 12/17/19 12/17/19 Range/Units 20:23 20:33 20:33 WBC 10.8 H (3.8-10.6) k/uL RBC 3.77 L (3.80-5.40) m/uL Hgb 10.6 L (11.4-16.0) gm/dL Hct 32.8 L (34.0-46.0) % RDW 17.5 H (11.5-15.5) % Neutrophils # 8.0 H (1.3-7.7) k/uL D-Dimer 4.27 H (<0.60) mg/L FEU Sodium (137-145) mmol/L Chloride (98-107) mmol/L Carbon Dioxide (22-30) mmol/L Glucose (74-99) mg/dL Magnesium (1.6-2.3) mg/dL Alkaline Phosphatase (38-126) U/L Lactate Dehydrogenase (313-618) U/L Total Protein (6.3-8.2) g/dL Albumin (3.5-5.0) g/dL Triglycerides (<150) mg/dL Cholesterol (<200) mg/dL Urine Protein 1+ H (Negative) Urine Blood Moderate H (Negative) Urine RBC 59 H (0-5) /hpf Urine Bacteria Rare H (None) /hpf 12/17/19 12/18/19 12/18/19 Range/Units 20:33 02:55 02:55 WBC (3.8-10.6) k/uL RBC 3.66 L (3.80-5.40) m/uL Hgb 10.3 L (11.4-16.0) gm/dL Hct 32.3 L (34.0-46.0) % RDW 17.6 H (11.5-15.5) % Neutrophils # (1.3-7.7) k/uL D-Dimer (<0.60) mg/L FEU Sodium 136 L (137-145) mmol/L Chloride 108 H (98-107) mmol/L Carbon Dioxide 21 L (22-30) mmol/L Glucose (74-99) mg/dL Magnesium (1.6-2.3) mg/dL Alkaline Phosphatase 171 H (38-126) U/L Lactate Dehydrogenase 647 H (313-618) U/L Total Protein 6.2 L (6.3-8.2) g/dL Albumin 3.2 L (3.5-5.0) g/dL Triglycerides 472 H (<150) mg/dL Cholesterol 250 H (<200) mg/dL Urine Protein (Negative) Urine Blood (Negative) Urine RBC (0-5) /hpf Urine Bacteria (None) /hpf 12/18/19 12/18/19 Range/Units 02:55 09:03 WBC (3.8-10.6) k/uL RBC (3.80-5.40) m/uL Hgb (11.4-16.0) gm/dL Hct (34.0-46.0) % RDW (11.5-15.5) % Neutrophils # (1.3-7.7) k/uL D-Dimer (<0.60) mg/L FEU Sodium (137-145) mmol/L Chloride (98-107) mmol/L Carbon Dioxide (22-30) mmol/L Glucose 108 H (74-99) mg/dL Magnesium 2.5 H (1.6-2.3) mg/dL Alkaline Phosphatase (38-126) U/L Lactate Dehydrogenase (313-618) U/L Total Protein (6.3-8.2) g/dL Albumin (3.5-5.0) g/dL Triglycerides (<150) mg/dL Cholesterol (<200) mg/dL Urine Protein (Negative) Urine Blood (Negative) Urine RBC (0-5) /hpf Urine Bacteria (None) /hpf Assessment and Plan Plan: -Congestive heart failure systolic dysfunction possibly cardiomyopathy with acute exacerbation patient appears to have acute systolic dysfunction . Hopefully this will improve down the line. Patient will continue on IV Lasix may need to restart an BOBO inhibitor discontinued amlodipine. -Uncontrolled hypertension secondary to preeclampsia expected to improve down the line patient about a low dose will be increased, will be monitored on telemetry -Rule out pulmonary embolism -Hyponatremia hypervolemic hyponatremia expected to improve with Lasix -Normocytic anemia secondary to blood loss from and section - anxiety disorder. -Obesity Due to prophylaxis with subcutaneous heparin
--- NOTE | 2019-12-18 11:47 | P.OBCN ---
History of Present Illness Consult date: 12/18/19 Reason for consult: other (Post preeclampsia, CHF versusThe) Chief complaint: Shortness of breath was noted elevated blood pressure History of present illness: This pleasant 29-year-old 1 now para 1 is postop day #4 from a primary secondary to severe preeclampsia remote from delivery. Patient was admitted to labor and delivery on 12/13 when she presented with complaints of contractions. Blood pressures were noted to be significantly elevated pre- Juvenal labs were ordered at that time. All labs were noted to be normal with the exception of urinary protein which was significantly elevated. Spot protein creatinine ratio was 2 elevated to be calculated. Patient denies signs or symptoms of preeclampsia at that time. Patient does struggle with severe anxiety and that was her main complaint. Patient underwent primary without difficulty. Her postoperative course was essentially uneventful. She did continue to have blood pressures 140s over 90s therefore labetalol was begun. On postop day #2 she was feeling well she was ambulating and voiding without difficulty her blood pressures were controlled with the 100 mg of little given twice daily. Patient was then discharged home. Patient subsequently noted symptoms of shortness of breath last evening and presented to the hospital. Blood pressures once again were significantly elevated and patient was admitted for CHF versus cardiomyopathy. Labs are reviewed and no signs of help syndrome were appreciated. Patient was begun on Magnesium sulfate infusion last evening. Upon entering the room and this morning patient looks comfortable resting in bed, she is currently pumping. She denies chest pain at this time, and during our conversation she does not appear short of breath, she appears comfortable. She did note some discomfort under her incision but denied drainage or redness/erythema surrounding it. She notes her lochia to be minimal. She denies signs or symptoms of preeclampsia at this time. Review of Systems Constitutional: Reports fatigue, Denies chills, Denies fever Ears, nose, mouth and throat: Denies headache Cardiovascular: Reports leg edema Respiratory: Denies dyspnea Gastrointestinal: Denies nausea, Denies vomiting Past Medical History Additional Past Medical History / Comment(s): chronic sinusitis, chiari History of Any Multi-Drug Resistant Organisms: None Reported Past Surgical History: Tonsillectomy Additional Past Surgical History / Comment(s): benign melanoma removed. Chiari surgery in November at [facility] Past Anesthesia/Blood Transfusion Reactions: No Reported Reaction Past Psychological History: Anxiety Smoking Status: Never smoker Past Alcohol Use History: None Reported Past Drug Use History: None Reported - Past Family History Mother Family Medical History: No Reported History Father Family Medical History: No Reported History Medications and Allergies Home Medications Medication Instructions Recorded Confirmed Type Acetaminophen [Tylenol Extra 500 mg PO Q6H PRN 12/17/19 12/17/19 History Strength] Ibuprofen [Motrin] 600 mg PO Q6H PRN 12/17/19 12/17/19 History Labetalol [Trandate] 100 mg PO BID 12/17/19 12/17/19 History Allergies Allergy/AdvReac Type Severity Reaction Status Date / Time erythromycin base Allergy Unknown Rash/Hives Verified 12/17/19 21:48 amoxicillin [From Augmentin] AdvReac Severe Abdominal Verified 12/17/19 21:48 Pain clavulanic acid AdvReac Severe Abdominal Verified 12/17/19 21:48 [From Augmentin] Pain hydrocodone bitartrate AdvReac Severe Nausea & Verified 12/17/19 21:48 [From Vicodin] Vomiting sulfamethoxazole AdvReac Severe mouth sores Verified 12/17/19 21:48 [From Bactrim] trimethoprim [From Bactrim] AdvReac Severe mouth sores Verified 12/17/19 21:48 dextromethorphan AdvReac Intermediate Abdominal Verified 12/17/19 21:48 Pain promethazine [From Phenergan] AdvReac Intermediate Abdominal Verified 12/17/19 21:48 Pain acetaminophen [From Vicodin] AdvReac Nausea & Verified 12/17/19 21:48 Vomiting hydrocodone [From Vicodin] AdvReac Nausea & Verified 12/17/19 21:48 Vomiting metoclopramide [From Reglan] AdvReac Rash/Hives Verified 12/17/19 21:48 Exam Osteopathic Statement: *. No significant issues noted on an osteopathic structural exam other than those noted in the History and Physical/Consult. Vital Signs Temp Pulse Pulse Resp BP BP Pulse Ox 12/18/19 08:00 97.9 F 107 H 18 137/96 98 12/18/19 04:00 97.9 F 108 H 18 140/87 97 12/18/19 00:15 153/107 12/18/19 00:10 156/117 12/17/19 23:47 98.6 F 105 H 16 170/117 97 12/17/19 22:47 96 18 145/99 97 12/17/19 22:33 98 143/95 97 12/17/19 22:00 102 H 150/103 98 12/17/19 21:24 18 12/17/19 21:20 152/102 12/17/19 21:18 100 12/17/19 20:56 98 18 150/101 97 12/17/19 20:05 100 20 161/113 99 12/17/19 19:59 98.4 F 104 H 18 138/104 96 Intake and Output 12/17/19 12/18/19 12/18/19 22:59 06:59 14:59 Intake Total 240 Output Total 800 1300 Balance -800 -1060 Intake: Oral 240 Output: Urine 800 1300 Other: # Voids 1 Weight 116.755 kg 115.5 kg 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 Results Result Diagrams: 12/18/19 02:55 12/18/19 02:55 Abnormal Lab Results - Last 24 Hours (Table) 12/17/19 12/17/19 12/17/19 Range/Units 20:23 20:33 20:33 WBC 10.8 H (3.8-10.6) k/uL RBC 3.77 L (3.80-5.40) m/uL Hgb 10.6 L (11.4-16.0) gm/dL Hct 32.8 L (34.0-46.0) % RDW 17.5 H (11.5-15.5) % Neutrophils # 8.0 H (1.3-7.7) k/uL D-Dimer 4.27 H (<0.60) mg/L FEU Sodium (137-145) mmol/L Chloride (98-107) mmol/L Carbon Dioxide (22-30) mmol/L Glucose (74-99) mg/dL Magnesium (1.6-2.3) mg/dL Alkaline Phosphatase (38-126) U/L Lactate Dehydrogenase (313-618) U/L Total Protein (6.3-8.2) g/dL Albumin (3.5-5.0) g/dL Triglycerides (<150) mg/dL Cholesterol (<200) mg/dL Urine Protein 1+ H (Negative) Urine Blood Moderate H (Negative) Urine RBC 59 H (0-5) /hpf Urine Bacteria Rare H (None) /hpf 12/17/19 12/18/19 12/18/19 Range/Units 20:33 02:55 02:55 WBC (3.8-10.6) k/uL RBC 3.66 L (3.80-5.40) m/uL Hgb 10.3 L (11.4-16.0) gm/dL Hct 32.3 L (34.0-46.0) % RDW 17.6 H (11.5-15.5) % Neutrophils # (1.3-7.7) k/uL D-Dimer (<0.60) mg/L FEU Sodium 136 L (137-145) mmol/L Chloride 108 H (98-107) mmol/L Carbon Dioxide 21 L (22-30) mmol/L Glucose (74-99) mg/dL Magnesium (1.6-2.3) mg/dL Alkaline Phosphatase 171 H (38-126) U/L Lactate Dehydrogenase 647 H (313-618) U/L Total Protein 6.2 L (6.3-8.2) g/dL Albumin 3.2 L (3.5-5.0) g/dL Triglycerides 472 H (<150) mg/dL Cholesterol 250 H (<200) mg/dL Urine Protein (Negative) Urine Blood (Negative) Urine RBC (0-5) /hpf Urine Bacteria (None) /hpf 12/18/19 12/18/19 Range/Units 02:55 09:03 WBC (3.8-10.6) k/uL RBC (3.80-5.40) m/uL Hgb (11.4-16.0) gm/dL Hct (34.0-46.0) % RDW (11.5-15.5) % Neutrophils # (1.3-7.7) k/uL D-Dimer (<0.60) mg/L FEU Sodium (137-145) mmol/L Chloride (98-107) mmol/L Carbon Dioxide (22-30) mmol/L Glucose 108 H (74-99) mg/dL Magnesium 2.5 H (1.6-2.3) mg/dL Alkaline Phosphatase (38-126) U/L Lactate Dehydrogenase (313-618) U/L Total Protein (6.3-8.2) g/dL Albumin (3.5-5.0) g/dL Triglycerides (<150) mg/dL Cholesterol (<200) mg/dL Urine Protein (Negative) Urine Blood (Negative) Urine RBC (0-5) /hpf Urine Bacteria (None) /hpf Assessment and Plan (1) CHF (congestive heart failure) Current Visit: Yes Status: Acute Code(s): I50.9 - HEART FAILURE, UNSPECIFIED SNOMED Code(s): 55636245 (2) Cardiomyopathy Current Visit: Yes Status: Acute Code(s): I42.9 - CARDIOMYOPATHY, UNSPECIFIED SNOMED Code(s): 59920159 (3) S/P section Current Visit: No Status: Acute Code(s): Z98.891 - HISTORY OF UTERINE SCAR FROM PREVIOUS SURGERY SNOMED Code(s): 566690351 Plan: This pleasant 29-year-old 1 now para 1 status post primary on 12/13 is doing well postoperatively. Incision is noted to be clean dry and intact diana remain in place, uterus is noted to be firm and below the umbilicus. Awaiting primary admitting physician recommendations for care. Cardiac echo was performed this morning and we are awaiting results. Labs are reviewed no signs of hellp syndrome is noted.
[2019-12-18 13:22] VITALS: BMI 42.3
[2019-12-18] MEDS: ACETAMINOPHEN TAB 325 MG TAB PO PRN ×2 (13:50→22:00)
[2019-12-18] MEDS ORDERED: LABETALOL 100 MG TAB PO SCH (16:00)
[2019-12-18] MEDS: SPIRONOLACTONE 25 MG TAB PO SCH (17:59)
[2019-12-18] MEDS: hydrALAZINE HCL 50 MG TAB PO SCH (22:02)
[2019-12-18] MEDS: LABETALOL 100 MG TAB PO SCH (22:03)
[2019-12-19] MEDS: IBUPROFEN 200 MG TAB PO PRN ×2 (00:31→12:03)
[2019-12-19] MEDS: ALPRAZolam 0.25 MG TAB PO PRN (00:31)
[2019-12-19] MEDS: ACETAMINOPHEN TAB 325 MG TAB PO PRN ×2 (04:53→08:05)
[2019-12-19 07:18] LABS: Anisocytosis Slight; Basophils % (A) 0 %; Eosinophils # (A) 0.2 k/uL (0-0.7); Eosinophils % (A) 3 %; HGB 9.9 gm/dL (11.4-16.0); Lymphocytes # (A) 2.1 k/uL (1.0-4.8); Lymphocytes % (A) 25 %; MCH 28.4 pg (25.0-35.0); MCV 88.7 fL (80.0-100.0); Monocytes # (A) 0.5 k/uL (0-1.0); Monocytes % (A) 6 %; Neutrophils # (A) 5.4 k/uL (1.3-7.7); Neutrophils % (A) 65 %; Platelet Count 307 k/uL (150-450); RBC 3.49 m/uL (3.80-5.40); RDW 17.5 % (11.5-15.5); WBC 8.4 k/uL (3.8-10.6)
[2019-12-19 07:34] LABS: African American GFR (CKD) >90 (>60 ml/min/1.73 sqM); Anion Gap 6 mmol/L; Blood Urea Nitrogen 15 mg/dL (7-17); Calcium 8.2 mg/dL (8.4-10.2); Carbon Dioxide 27 mmol/L (22-30); Chloride 103 mmol/L (98-107); Glucose 83 mg/dL (74-99); Non-African American GFR(CKD) >90 (>60 ml/min/1.73 sqM); Potassium 4.2 mmol/L (3.5-5.1); Sodium 136 mmol/L (137-145)
[2019-12-19 08:04] VITALS: RESP 18
[2019-12-19] MEDS: ASPIRIN 81 MG PO SCH (08:05)
[2019-12-19] MEDS: hydrALAZINE HCL 50 MG TAB PO SCH (08:05)
[2019-12-19] MEDS: SPIRONOLACTONE 25 MG TAB PO SCH (08:05)
[2019-12-19] MEDS: LABETALOL 100 MG TAB PO SCH (08:05)
[2019-12-19] MEDS: HEPARIN SODIUM,PORCINE 5,000 UNIT/ML 1 ML VIAL SQ SCH (08:06)
[2019-12-19] MEDS: FUROSEMIDE 10 MG/ML 4 ML VIAL IV SCH (08:06)
[2019-12-19] MEDS: PANTOPRAZOLE 40 MG/10 ML VIAL IVP SCH (08:06)
[2019-12-19] MEDS ORDERED: amLODIPine 5 MG TAB PO SCH (09:00)
--- NOTE | 2019-12-19 11:58 | P.DS ---
Providers Date of admission: 12/17/19 23:17 Attending physician: Lizette Gutierrez Consults: 12/17/19 23:14 Consult Physician Routine Consulting Provider: Krissy Juarez Consult Reason/Comments: known Do you want consulting provider notified?: Yes 12/17/19 23:15 Consult Physician Urgent Consulting Provider: Nando Donovan Consult Reason/Comments: chf/CM Do you want consulting provider notified?: Yes Primary care physician: [facility] Course: 29-year-old female was admitted secondary to elevated blood pressure and possible cardiomyopathy. Patient is being continued on Lasix patient probably related to be switched BOBO inhibitor her EF is around the 45-50%. Patient is still short of breath heart rate in the pressure still high I'm increasing the labetalol to 300 3 times a day. 12/19/2019 Patient is clinically doing well euvolemic at this time patient will be discharged on Coreg, Aldactone, hydralazinein the low dose of Lasix. PHYSICAL EXAMINATION: GENERAL: The patient is alert and oriented x3, not in any acute distress. Well developed, well nourished. HEENT: Pupils are round and equally reacting to light. EOMI. No scleral icterus. No conjunctival pallor. Normocephalic, atraumatic. No pharyngeal erythema. No thyromegaly. CARDIOVASCULAR: S1 and S2 present. No murmurs, rubs, or gallops. PULMONARY: Chest is clear to auscultation, no wheezing or crackles. ABDOMEN: Soft, nontender, nondistended, normoactive bowel sounds. No palpable organomegaly. MUSCULOSKELETAL: No joint swelling or deformity. EXTREMITIES: No cyanosis, clubbing, or pedal edema. NEUROLOGICAL: Gross neurological examination did not reveal any focal deficits. SKIN: No rashes. Assessment and Plan Plan: -Congestive heart failure systolic dysfunction possibly cardiomyopathy with acute exacerbation , patient is euvolemic and patient will be discharged on above-mentioned medications -Uncontrolled hypertension secondary to preeclampsia that pressure improved now her blood pressure is expected to go down next few weeks because of which asked her to check the blood pressure at home closely and if she gets lightheaded and call PCP and cardiology and cut down her antidepressant medications -Rule out pulmonary embolism -Hyponatremia hypervolemic hyponatremia proved with Lasix -Normocytic anemia secondary to blood loss from and section - anxiety disorder. -Obesity Patient Condition at Discharge: Serious Plan - Discharge Summary Discharge Rx Participant: Yes New Discharge Prescriptions: New Spironolactone [Aldactone] 25 mg PO DAILY #30 tab hydrALAZINE HCL [Apresoline] 50 mg PO BID #60 tab Carvedilol [Coreg] 25 mg PO BID #60 tablet Furosemide [Lasix] 40 mg PO DAILY #30 tablet Continue Ibuprofen [Motrin] 600 mg PO Q6H PRN PRN Reason: Pain Acetaminophen [Tylenol Extra Strength] 500 mg PO Q6H PRN PRN Reason: Pain Discontinued Labetalol [Trandate] 100 mg PO BID Discharge Medication List Acetaminophen [Tylenol Extra Strength] 500 mg PO Q6H PRN 12/17/19 [History] Ibuprofen [Motrin] 600 mg PO Q6H PRN 12/17/19 [History] Carvedilol [Coreg] 25 mg PO BID #60 tablet 12/19/19 [Rx] Furosemide [Lasix] 40 mg PO DAILY #30 tablet 12/19/19 [Rx] Spironolactone [Aldactone] 25 mg PO DAILY #30 tab 12/19/19 [Rx] hydrALAZINE HCL [Apresoline] 50 mg PO BID #60 tab 12/19/19 [Rx] Follow up Appointment(s)/Referral(s): Rogers Mcdonald DO [Primary Care Provider] - 3 Days Discharge Disposition: HOME SELF-CARE
[2019-12-19 12:11] VITALS: BP 131/84; PULSE 92; TEMP 98.6
--- NOTE | 2019-12-19 13:58 | P.PN ---
Subjective Progress Note Date: 12/19/19 This is a pleasant 29-year-old female who recently underwent , had preeclampsia, was sent home and at home was noted to have elevated blood pressure. She subsequently came to the emergency room and was admitted. She has prior history of Arnold-Chiari malformation, status post surgical interventi on. In addition to elevated blood pressure she also noticed progressive dyspnea and worsening edema at home. She was started on labetalol 100 mg by mouth twice a day following her . On admission NT proBNP was elevated at 2230. D- dimer was elevated and computed tomography scan of the chest showed no evidence of PE with bilateral pleural effusions and pulmonary interstitial edema that is new compared to an old exam. She's been initiated on Lasix 40 mg IV push every 12 hours, hydralazine 50 mg by mouth twice a day, Aldactone 25 mg by mouth daily along with labetalol 300 mg by mouth twice a day. Echocardiogram with Doppler study showed mildly dilated LV, mild LVH, mildly impaired LV systolic function with an ejection fraction between 45-50%, trace to mild aortic regurgitation, m oderate MR, mild TR and mild pulmonary hypertension with an RVSP of 42 mmHg. Upon examination today, patient is resting preferably in bed. She feels her breathing is better. Continues to have some lower extremity edema. Blood pressure is better controlled in the 110s to 130s over 80s and 90s. Objective - Vital Signs Vital signs: Vital Signs Temp 98.2 F 12/19/19 04:00 Pulse 93 12/19/19 08:01 Resp 18 12/19/19 08:01 BP 136/93 12/19/19 08:01 Pulse Ox 98 12/19/19 08:01 Intake & Output 12/18/19 12/19/19 12/19/19 18:59 06:59 18:59 Intake Total 1020 480 Output Total 1899 2049 Balance - -2049 480 Weight 115.5 kg 111 kg Intake: Oral 1020 480 Output: Urine 1899 2049 Other: # Voids 1 - Exam PHYSICAL EXAMINATION: HEENT: Head is atraumatic, normocephalic. Pupils equal, round. Neck is supple. There is no elevated jugular venous pressure. HEART EXAMINATION: Heart sounds regular, S1 and S2 normal. No murmur or gallop heard. CHEST EXAMINATION: Lungs are clear to auscultation and precussion. No chest wall tenderness is noted on palpation or with deep breathing. ABDOMEN: Soft, mild tenderness. Bowel sounds are heard. No organomegaly noted. EXTREMITIES: 2+ peripheral pulses with evidence of 1+ peripheral edema and no calf tenderness noted. NEUROLOGIC patient is awake, alert and oriented x3. . - Labs CBC & Chem 7: 12/19/19 05:46 12/19/19 05:46 Labs: Abnormal Lab Results - Last 24 Hours (Table) 12/19/19 12/19/19 Range/Units 05:46 05:46 RBC 3.49 L (3.80-5.40) m/uL Hgb 9.9 L (11.4-16.0) gm/dL Hct 31.0 L (34.0-46.0) % RDW 17.5 H (11.5-15.5) % Sodium 136 L (137-145) mmol/L Calcium 8.2 L (8.4-10.2) mg/dL Assessment and Plan Assessment: #1 symptoms progressive dyspnea with evidence of congestive heart failure, secondary to cardiomyopathy, echocardiogram shows ejection fraction 45-50% #2 preeclampsia both hypertension #3 recent #4 history of Arnold-Chiari surgery Plan: From cardiac standpoint, we will switch from labetalol to carvedilol 25 mg by mouth twice a day. Continue hydralazine 50 mg by mouth twice a day as well as Aldactone 25 mg by mouth daily. Change to Lasix 40 mg by mouth daily. Instructed the patient to monitor her blood pressure home regularly and look for signs of hypotension. The patient will follow-up in the office with Dr. Donovan in about 2 weeks. PHARMACY TECHNICIAN INFUSION note has been reviewed, I agree with a documented findings and plan of care. Patient was seen and examined.
[2019-12-19] MEDS ORDERED: CARVEDILOL 12.5 MG TAB PO SCH (17:30)
[2019-12-19] MEDS ORDERED: LABETALOL 100 MG TAB PO SCH (21:00)
== END 2019-12-19 13:40 | disposition home or self-care (01) | DRG 776 ==
LOC: EC 19:44 → 3SCARD 23:17
PROVIDERS: ADMIT Hospitalist; ATTEND Hospitalist
DX: O99.43 Diseases of the circulatory system complicating the puerperium (principal); I50.23 Acute on chronic systolic (congestive) heart failure; E87.1 Hypo-osmolality and hyponatremia; I27.20 Pulmonary hypertension, unspecified; E66.9 Obesity, unspecified; O14.15 Severe pre-eclampsia, complicating the puerperium; O90.81 Anemia of the puerperium; D50.0 Iron deficiency anemia secondary to blood loss (chronic); I08.3 Combined rheumatic disorders of mitral, aortic and tricuspid valves; O99.215 Obesity complicating the puerperium; Q07.00 Arnold-Chiari syndrome without spina bifida or hydrocephalus; Z20.828 Contact with and (suspected) exposure to other viral communicable diseases; J32.9 Chronic sinusitis, unspecified; Z79.899 Other long term (current) drug therapy; Z98.891 History of uterine scar from previous surgery; Z85.820 Personal history of malignant melanoma of skin; Z87.891 Personal history of nicotine dependence; Z90.89 Acquired absence of other organs; Z88.6 Allergy status to analgesic agent; Z88.1 Allergy status to other antibiotic agents; Z88.5 Allergy status to narcotic agent; Z88.0 Allergy status to penicillin; Z88.2 Allergy status to sulfonamides; Z88.8 Allergy status to other drugs, medicaments and biological substances
CPT/HCPCS: 36415; 71045; 71275; 80048; 80053; 80061; 81001; 83605; 83615; 83735; 83880; 84100; 84443; 84484; 84550; 85025; 85379; 85610; 85730; 86850; 86870; 86880; 86900; 86901; 86902; 93005; 93306; 96361; 96365; 96375; 96376; 99291

== ENCOUNTER → 2020-01-22 | Outpatient (CLI) | payer BC ==
--- NOTE | 2020-01-23 10:00 | ECHOF ---
Referral Reason:I50.9 Heart failure, unspecified MEASUREMENTS -------- HEIGHT: 165.1 cm WEIGHT: 106.6 kg BP: RVIDd: 3.5 cm (< 3.3) IVSd: 1.2 cm (0.6 - 1.1) LVIDd: 5.2 cm (3.9 - 5.3) LVPWd: 1.0 cm (0.6 - 1.1) IVSs: 1.2 cm LVIDs: 4.6 cm LVPWs: 1.4 cm LA Diam: 3.5 cm (2.7 - 3.8) LAESV Index (A-L): 18.84 ml/m Ao Diam: 3.1 cm (2.0 - 3.7) AV Cusp: 1.9 cm (1.5 - 2.6) MV EXCURSION: 16.659 mm (> 18.000) MV EF SLOPE: 78 mm/s (70 - 150) EPSS: 2.2 cm MV E Bridger: 0.56 m/s MV DecT: 132 ms MV A Bridger: 0.50 m/s MV E/A Ratio: 1.13 RAP: 5.00 mmHg RVSP: 15.84 mmHg FINDINGS -------- Sinus rhythm. This was a technically adequate study. The left ventricular size is normal. There is mild concentric left ventricular hypertrophy. There is moderate global hypokinesis of LV . Overall left ventricular systolic function is mild-moderate ly impaired with, an EF between 40 - 45 %. The right ventricle is normal in size. Normal LA size by volume 22+/-6 ml/m2. The right atrial size is normal. The aortic valve is trileaflet, and appears structurally normal. No aortic stenosis or regurgitation. The mitral valve is normal. Mild mitral regurgitation is present. Mild tricuspid regurgitation present. Right ventricular systolic pressure is normal at < 35 mmHg. There is no pulmonic regurgitation present. The aortic root size is normal. There is no pericardial effusion. CONCLUSIONS -------- 1. There is mild concentric left ventricular hypertrophy. 2. There is moderate global hypokinesis of LV . 3. Overall left ventricular systolic function is mild-moderately impaired with, an EF between 40 - 45 %. 4. Normal LA size by volume 22+/-6 ml/m2. 5. The aortic valve is trileaflet, and appears structurally normal. No aortic stenosis or regurgitati on. 6. Mild mitral regurgitation is present. 7. Mild tricuspid regurgitation present. 8. There is no pulmonic regurgitation present. 9. There is no pericardial effusion. CLOTH MEASURER: Loree Ring RDCS
== END | disposition home or self-care (01) ==
LOC: RADECHMAIN 16:28
PROVIDERS: ATTEND Family Medicine
DX: I08.1 Rheumatic disorders of both mitral and tricuspid valves (principal); I50.9 Heart failure, unspecified
CPT/HCPCS: 93306

== ENCOUNTER 2020-01-25 18:04 | Observation (INO) | payer BC ==
--- NOTE | 2020-01-25 18:41 | ED ---
General Adult HPI - General Chief complaint: Chest Pain Stated complaint: Chest pain Time Seen by Provider: 01/25/20 18:16 Source: patient Mode of arrival: ambulatory Limitations: no limitations - History of Present Illness Initial comments: Dictation was produced using Sunrise dictation software. please excuse any grammatical, word or spelling errors. This patient was cared for during a federal and state declared state of emergency secondary to Covid 19 Chief Complaint: 29-year-old female past medical history of cardiomy opathy presents chest pain. History of Present Illness: 29-year-old female she was at her primary care physician's office today. Patient was evaluated for chest pain that has been intermittent and ongoing for the last 2-3 days. She was told to come to the emergency department for further evaluation. Patient is 6 weeks . She was recently admitted to the hospital where she was diagnosed with cardiomyopathy. She is found to have mild to moderate cardiomyopathy with ejection fraction measuring 45-50%. She reports that she's been having vague left lower chest pain. She states that this pain sometimes radiates to the back. States it comes on intermittently. Is not induced by exertion. Does not radiate to the jaw the shoulder. No associated diaphoresis. She denies any symptoms at this time. The ROS documented in this emergency department record has been reviewed and confirmed by me. Those systems with pertinent positive or negative responses have been documented in the HPI. All other systems are other negative and/or noncontributory. PHYSICAL EXAM: General Impression: Alert and oriented x3, not in acute distress HEENT: Normocephalic atraumatic, extra-ocular movements intact, pupils equal and reactive to light bilaterally, mucous membranes moist. Cardiovascular: Heart regular rate and rhythm Chest: Able to complete full sentences, no retractions, no tachypnea Abdomen: abdomen soft, non-tender, non-distended, no organomegaly Musculoskeletal: Pulses present and equal in all extremities, no peripheral edema Motor: no focal deficits noted Neurological: CN II-XII grossly intact, no focal motor or sensory deficits noted Skin: Intact with no visualized rashes Psych: Normal affect and mood ED course: 29-year-old female presents with atypical chest pain with typical features. She does have history of cardiomyopathy. All signs upon arrival are within acceptable limits. EKG does not show any signs of ischemia or infarction. She does have nonspecific T-wave inversion in lead 3 however. Laboratory evaluation obtained. CBC, coag panel, metabolic panel is unremarkable. 2 sets of troponins are negative. Patient reevaluated bedside. She reports that she still having some chest symptoms. They do seem rather atypical however there are typical features. Patient has CT angiogram was performed early last month when patient was experiencing similar symptoms found to be negative. Considering patient's comorbid disease and persistent symptoms patient will be admitted to observation. Patient given a dose of aspirin. Case is discussed Dr. Mccrary who is willing to accept patients care. EKG interpretation: Ventricular rate 84, normal sinus rhythm,. 112, QRS 86, QTC 434. No KS prolongation, no QTC prolongation, no ST or T-wave changes noted. EKG compared to 12/18/2019 showing no changes. Overall, this EKG is unremark able - Related Data Home Medications Medication Instructions Recorded Confirmed Carvedilol [Coreg] 3.125 mg PO BID 01/25/20 01/25/20 Ibuprofen [Motrin Ib] 200 mg PO DAILY PRN 01/25/20 01/25/20 Magnesium Oxide [Weller] 250 mg PO DAILY 01/25/20 01/25/20 Pnv No.95/Ferrous Fum/Folic AC 1 tab PO DAILY 01/25/20 01/25/20 [ Multivitamin Tablet] Allergies Allergy/AdvReac Type Severity Reaction Status Date / Time erythromycin base Allergy Unknown Rash/Hives Verified 01/25/20 19:39 amoxicillin [From Augmentin] AdvReac Severe Abdominal Verified 01/25/20 19:39 Pain clavulanic acid AdvReac Severe Abdominal Verified 01/25/20 19:39 [From Augmentin] Pain hydrocodone bitartrate AdvReac Severe Nausea & Verified 01/25/20 19:39 [From Vicodin] Vomiting sulfamethoxazole AdvReac Severe mouth sores Verified 01/25/20 19:39 [From Bactrim] trimethoprim [From Bactrim] AdvReac Severe mouth sores Verified 01/25/20 19:39 dextromethorphan AdvReac Intermediate Abdominal Verified 01/25/20 19:39 Pain promethazine [From Phenergan] AdvReac Intermediate Abdominal Verified 01/25/20 19:39 Pain acetaminophen [From Vicodin] AdvReac Nausea & Verified 01/25/20 19:39 Vomiting hydrocodone [From Vicodin] AdvReac Nausea & Verified 01/25/20 19:39 Vomiting metoclopramide [From Reglan] AdvReac Rash/Hives Verified 01/25/20 19:39 Review of Systems ROS Statement: Those systems with pertinent positive or pertinent negative responses have been documented in the HPI. ROS Other: All systems not noted in ROS Statement are negative. Past Medical History Past Medical History: Heart Failure Additional Past Medical History / Comment(s): chronic sinusitis, chiari History of Any Multi-Drug Resistant Organisms: None Reported Past Surgical History: Section, Tonsillectomy Additional Past Surgical History / Comment(s): benign melanoma removed. Chiari surgery in November at [place] Past Anesthesia/Blood Transfusion Reactions: No Reported Reaction Past Psychological History: Anxiety Smoking Status: Never smoker Past Alcohol Use History: None Reported Past Drug Use History: None Reported - Past Family History Mother Family Medical History: No Reported History Father Family Medical History: No Reported History General Exam Limitations: no limitations Course Vital Signs 01/25/20 01/25/20 01/25/20 18:12 20:18 22:26 Temperature 98.7 F Pulse Rate 100 98 96 Respiratory 18 18 18 Rate Blood Pressure 115/83 100/81 107/80 O2 Sat by Pulse 98 97 97 Oximetry 01/25/20 22:43 Temperature Pulse Rate 87 Respiratory 18 Rate Blood Pressure 114/92 O2 Sat by Pulse 99 Oximetry Medical Decision Making - Lab Data Result diagrams: 01/25/20 18:40 01/25/20 18:40 Lab Results 01/25/20 01/25/20 01/25/20 Range/Units 18:40 18:40 18:40 WBC 9.5 (3.8-10.6) k/uL RBC 4.61 (3.80-5.40) m/uL Hgb 13.3 (11.4-16.0) gm/dL Hct 38.8 (34.0-46.0) % MCV 84.1 (80.0-100.0) fL MCH 28.9 (25.0-35.0) pg MCHC 34.4 (31.0-37.0) g/dL RDW 14.4 (11.5-15.5) % Plt Count 307 (150-450) k/uL Neutrophils % 65 % Lymphocytes % 27 % Monocytes % 5 % Eosinophils % 2 % Basophils % 0 % Neutrophils # 6.2 (1.3-7.7) k/uL Lymphocytes # 2.6 (1.0-4.8) k/uL Monocytes # 0.4 (0-1.0) k/uL Eosinophils # 0.2 (0-0.7) k/uL Basophils # 0.0 (0-0.2) k/uL PT (9.0-12.0) sec INR (<1.2) APTT (22.0-30.0) sec Sodium 139 (137-145) mmol/L Potassium 4.4 (3.5-5.1) mmol/L Chloride 105 (98-107) mmol/L Carbon Dioxide 22 (22-30) mmol/L Anion Gap 12 mmol/L BUN 17 (7-17) mg/dL Creatinine 0.86 (0.52-1.04) mg/dL Est GFR (CKD-EPI)AfAm >90 (>60 ml/min/1.73 sqM) Est GFR (CKD-EPI)NonAf >90 (>60 ml/min/1.73 sqM) Glucose 98 (74-99) mg/dL Calcium 9.5 (8.4-10.2) mg/dL Total Bilirubin 0.2 (0.2-1.3) mg/dL AST 15 (14-36) U/L ALT 20 (4-34) U/L Alkaline Phosphatase 130 H (38-126) U/L Troponin I (0.000-0.034) ng/mL NT-Pro-B Natriuret Pep 238 pg/mL Total Protein 7.8 (6.3-8.2) g/dL Albumin 4.7 (3.5-5.0) g/dL 01/25/20 01/25/20 01/25/20 Range/Units 18:40 18:40 21:20 WBC (3.8-10.6) k/uL RBC (3.80-5.40) m/uL Hgb (11.4-16.0) gm/dL Hct (34.0-46.0) % MCV (80.0-100.0) fL MCH (25.0-35.0) pg MCHC (31.0-37.0) g/dL RDW (11.5-15.5) % Plt Count (150-450) k/uL Neutrophils % % Lymphocytes % % Monocytes % % Eosinophils % % Basophils % % Neutrophils # (1.3-7.7) k/uL Lymphocytes # (1.0-4.8) k/uL Monocytes # (0-1.0) k/uL Eosinophils # (0-0.7) k/uL Basophils # (0-0.2) k/uL PT 9.7 (9.0-12.0) sec INR 0.9 (<1.2) APTT 26.3 (22.0-30.0) sec Sodium (137-145) mmol/L Potassium (3.5-5.1) mmol/L Chloride (98-107) mmol/L Carbon Dioxide (22-30) mmol/L Anion Gap mmol/L BUN (7-17) mg/dL Creatinine (0.52-1.04) mg/dL Est GFR (CKD-EPI)AfAm (>60 ml/min/1.73 sqM) Est GFR (CKD-EPI)NonAf (>60 ml/min/1.73 sqM) Glucose (74-99) mg/dL Calcium (8.4-10.2) mg/dL Total Bilirubin (0.2-1.3) mg/dL AST (14-36) U/L ALT (4-34) U/L Alkaline Phosphatase (38-126) U/L Troponin I <0.012 <0.012 (0.000-0.034) ng/mL NT-Pro-B Natriuret Pep pg/mL Total Protein (6.3-8.2) g/dL Albumin (3.5-5.0) g/dL Disposition Clinical Impression: Chest pain Disposition: ADMITTED IP TO THIS HOSP Condition: Fair Referrals: Rogers Mcdonald DO [Primary Care Provider] - 1-2 days Decision Time: 23:13
[2020-01-25 18:47] LABS: Basophils % (A) 0 %; Eosinophils # (A) 0.2 k/uL (0-0.7); Eosinophils % (A) 2 %; HCT 38.8 % (34.0-46.0); HGB 13.3 gm/dL (11.4-16.0); Lymphocytes # (A) 2.6 k/uL (1.0-4.8); Lymphocytes % (A) 27 %; MCH 28.9 pg (25.0-35.0); MCHC 34.4 g/dL (31.0-37.0); MCV 84.1 fL (80.0-100.0); Mean Platelet Volume 7.3; Monocytes # (A) 0.4 k/uL (0-1.0); Monocytes % (A) 5 %; Neutrophils # (A) 6.2 k/uL (1.3-7.7); Neutrophils % (A) 65 %; Platelet Count 307 k/uL (150-450); RBC 4.61 m/uL (3.80-5.40); RDW 14.4 % (11.5-15.5); WBC 9.5 k/uL (3.8-10.6)
--- NOTE | 2020-01-25 19:02 | XR ---
EXAMINATION TYPE: XR chest 2V DATE OF EXAM: 01/25/2020 COMPARISON: 12/17/2019 HISTORY: Chest pain TECHNIQUE: FINDINGS: Heart and mediastinum are normal. Lungs are clear. Diaphragm is normal. Bony thorax is norm al. There are chest leads. IMPRESSION: Normal chest. There is clearing of the pulmonary congestion compared to old exam.
[2020-01-25 19:10] LABS: ALT 20 U/L (4-34); AST 15 U/L (14-36); African American GFR (CKD) >90 (>60 ml/min/1.73 sqM); Albumin 4.7 g/dL (3.5-5.0); Alkaline Phosphatase 130 U/L (38-126); Anion Gap 12 mmol/L; Blood Urea Nitrogen 17 mg/dL (7-17); Calcium 9.5 mg/dL (8.4-10.2); Carbon Dioxide 22 mmol/L (22-30); Chloride 105 mmol/L (98-107); Glucose 98 mg/dL (74-99); Non-African American GFR(CKD) >90 (>60 ml/min/1.73 sqM); Potassium 4.4 mmol/L (3.5-5.1); Sodium 139 mmol/L (137-145); Total Bilirubin 0.2 mg/dL (0.2-1.3); Total Protein 7.8 g/dL (6.3-8.2)
[2020-01-25 19:14] LABS: INR 0.9 (<1.2); Partial Thromboplastin Time 26.3 sec (22.0-30.0); Prothrombin Time 9.7 sec (9.0-12.0)
[2020-01-25] MEDS ORDERED: carvediloL 3.125 MG TAB PO STA (22:19)
[2020-01-25] MEDS ORDERED: NALOXONE 0.4 MG/ML 1 ML VIAL IV PRN (23:07)
[2020-01-25] MEDS ORDERED: IBUPROFEN 400 MG TAB PO PRN (23:08)
[2020-01-25] MEDS ORDERED: ASPIRIN 81 MG PO STA (23:12)
[2020-01-25] MEDS ORDERED: SODIUM CHLORIDE 0.9% 1,000 ML IV SCH (23:15)
[2020-01-26] MEDS ORDERED: MAGNESIUM OXIDE 250 MG PO SCH (09:00)
[2020-01-26] MEDS ORDERED: PRENATAL VIT-IRON-FOLIC ACID 1 EACH CAP PO SCH (09:00)
[2020-01-26] MEDS ORDERED: carvediloL 3.125 MG TAB PO SCH ×3 (09:00→21:00)
--- NOTE | 2020-01-26 09:30 | P.HPIM ---
History of Present Illness Patient is a pleasant 29-year-old female came in with complains of intermittent on and off chest pain mild in diffuse all over the chest and also in the epigastric area. Patient just pain is sharp in nature and nonradiating not asso ciated with exertion, food nonpleuritic in nature. Denied any lightheadedness diaphoresis associated with that. Patient denied any cough. Patient had a cardiomyopathy patient the ejection fraction the past was 40 with 50% patient had an echocardiogram couple days ago which didn't show any wall motion abnormality this is with the patient and the EF at that time was around 40-45%. Patient's troponins are negative EKG showed sinus rhythm without any acute ST-T wave changes. We'll also complained of significant side effects from Coreg patient becomes hypotensive and also feels tired and fatigued with Coreg which are actually the side effects of beta blockers. Review of Systems REVIEW OF SYSTEMS: CONSTITUTIONAL: No fever, no malaise, no fatigue. HEENT: No recent visual problems or hearing problems. Denied any sore throat. CARDIOVASCULAR: No orthopnea, PND, no palpitations, no syncope. PULMONARY: No shortness of breath, no cough, no hemoptysis. GASTROINTESTINAL: No diarrhea, no nausea, no vomiting, no abdominal pain. NEUROLOGICAL: No headaches, no weakness, no numbness. HEMATOLOGICAL: Denies any bleeding or petechiae. GENITOURINARY: Denies any burning micturition, frequency, or urgency. MUSCULOSKELETAL/RHEUMATOLOGICAL: Denies any joint pain, swelling, or any muscle pain. ENDOCRINE: Denies any polyuria or polydipsia. The rest of the 14-point review of systems is negative. Past Medical History Past Medical History: Heart Failure Additional Past Medical History / Comment(s): chronic sinusitis, chiari History of Any Multi-Drug Resistant Organisms: None Reported Past Surgical History: Section, Tonsillectomy Additional Past Surgical History / Comment(s): benign melanoma removed. Chiari surgery in November at [place] Past Anesthesia/Blood Transfusion Reactions: No Reported Reaction Past Psychological History: Anxiety Smoking Status: Former smoker Past Alcohol Use History: None Reported Past Drug Use History: None Reported - Past Family History Mother Family Medical History: No Reported History Father Family Medical History: No Reported History Medications and Allergies Home Medications Medication Instructions Recorded Confirmed Type Ibuprofen [Motrin Ib] 200 mg PO DAILY PRN 01/25/20 01/25/20 History Magnesium Oxide [Weller] 250 mg PO DAILY 01/25/20 01/25/20 History Pnv No.95/Ferrous Fum/Folic AC 1 tab PO DAILY 01/25/20 01/25/20 History [ Multivitamin Tablet] Carvedilol [Coreg] 3.125 mg PO BID #0 01/26/20 01/25/20 Rx Omeprazole [PriLOSEC] 20 mg PO AC-BID #30 cap 01/26/20 Rx Allergies Allergy/AdvReac Type Severity Reaction Status Date / Time erythromycin base Allergy Unknown Rash/Hives Verified 01/25/20 19:39 amoxicillin [From Augmentin] AdvReac Severe Abdominal Verified 01/25/20 19:39 Pain clavulanic acid AdvReac Severe Abdominal Verified 01/25/20 19:39 [From Augmentin] Pain hydrocodone bitartrate AdvReac Severe Nausea & Verified 01/25/20 19:39 [From Vicodin] Vomiting sulfamethoxazole AdvReac Severe mouth sores Verified 01/25/20 19:39 [From Bactrim] trimethoprim [From Bactrim] AdvReac Severe mouth sores Verified 01/25/20 19:39 dextromethorphan AdvReac Intermediate Abdominal Verified 01/25/20 19:39 Pain promethazine [From Phenergan] AdvReac Intermediate Abdominal Verified 01/25/20 19:39 Pain acetaminophen [From Vicodin] AdvReac Nausea & Verified 01/25/20 19:39 Vomiting hydrocodone [From Vicodin] AdvReac Nausea & Verified 01/25/20 19:39 Vomiting metoclopramide [From Reglan] AdvReac Rash/Hives Verified 01/25/20 19:39 Physical Exam Vitals: Vital Signs Temp Pulse Pulse Resp BP BP Pulse Ox 01/26/20 08:28 98 F 88 16 121/81 99 01/26/20 02:48 98.1 F 90 18 117/87 96 01/26/20 02:42 90 01/26/20 00:52 86 18 110/88 99 01/26/20 00:26 98.1 F 90 18 117/87 96 01/25/20 22:43 87 18 114/92 99 01/25/20 22:26 96 18 107/80 97 01/25/20 20:18 98 18 100/81 97 01/25/20 18:12 98.7 F 100 18 115/83 98 Intake and Output 01/25/20 01/26/20 01/26/20 22:59 06:59 14:59 Other: Voiding Method Toilet # Voids 1 Weight 105.687 kg 105.687 kg PHYSICAL EXAMINATION: GENERAL: The patient is alert and oriented x3, not in any acute distress. Well developed, well nourished. HEENT: Pupils are round and equally reacting to light. EOMI. No scleral icterus. No conjunctival pallor. Normocephalic, atraumatic. No pharyngeal erythema. No thyromegaly. CARDIOVASCULAR: S1 and S2 present. No murmurs, rubs, or gallops. PULMONARY: Chest is clear to auscultation, no wheezing or crackles. ABDOMEN: Soft, nontender, nondistended, normoactive bowel sounds. No palpable organomegaly. MUSCULOSKELETAL: No joint swelling or deformity. EXTREMITIES: No cyanosis, clubbing, or pedal edema. NEUROLOGICAL: Gross neurological examination did not reveal any focal deficits. SKIN: No rashes. Results CBC & Chem 7: 01/25/20 18:40 01/25/20 18:40 Labs: Abnormal Lab Results - Last 24 Hours (Table) 01/25/20 Range/Units 18:40 Alkaline Phosphatase 130 H (38-126) U/L Thrombosis Risk Factor Assmnt - Choose All That Apply Each Factor Represents 1 point: or Thrombosis Risk Factor Assessment Total Risk Factor Score: 1 Thrombosis Risk Factor Assessment Level: Low Risk Assessment and Plan Plan: -Chest pain atypical: Etiology is not clear ruled out acute coronary syndromes will also rule out pulmonary embolism with a d-dimer. Can be musculoskeletal or gastroesophageal reflux disease patient does take ibuprofen at home which asked her to avoid and stay with Tylenol. Patient given prescription for empiric proton pump inhibitor for 2 weeks. -Lightheadedness and fatigue: Secondary to Coreg, I will cut down the dose of Coreg, alert cardiology decide about discontinue additional this medication. -History of myopathy present EF of around 40-4045% not in heart failure exacerbation Patient will be discharged if cleared by cardiology.
[2020-01-26] MEDS ORDERED: PANTOPRAZOLE 40 MG TABLET PO SCH (11:00)
[2020-01-26] MEDS: CALCIUM CARBONATE 500 MG CHEWABLE PO PRN ×2 (12:23→22:02)
--- NOTE | 2020-01-26 13:01 | P.CRDCN ---
History of Present Illness Consult date: 01/26/20 Reason for Consult (text): Chest pain, shortness of breath Chief complaint: chest pain/shortness of breath History of present illness: HISTORY OF PRESENT ILLNESS AND PLAN: This is a 29-year-old female with history of Arnold zelda malformation s/p surgical repair, anxiety and recent on 12/17/2019 with live of baby girl six weeks ago. Pt was known to have pre-eclampsia with elevated blood pressure. Pt delivered a healthy baby girl and was released home. Pt then reported back to the hospital and found to have cardiomyopathy with an EF at 45-50. CTA on 12/17/2019 negative for PE. Pt did have pleural effusion and CHF noted on chest x-ray. She is now following with Dr. Leach in office. Pt presents again to hospital with complaints of GERD, exertional shortness of breath, chest pain and intolerance to beta alexus due to low BP at home. Repeat echo on 01/22/2020 shows EF at 40-45% with global hypokinesis. Pt seen currently lying in bed with no current c/o of chest pain or chest pressure. Pt described prior chest pain as midsternal, cramping, "weird pain" at the base of the left lung. Pt states it could be GERD. Pt states she is also engorged with not being able to nurse infant. This is pt's first baby as well. Pt is SR on monitor, VSS. 98% on RA. Troponins negative x 2. D-Dimer this day WNL. Pt states she originall was placed on Coreg 25mg BID and it has been reduced twice due to low blood pressure. Now taking Coreg 3.125 twice daily which we will continue until she has follow-up visit. Pt to see Dr. Leach on FOV in 2 weeks post discharge. SIGNIFICANT PAST MEDICAL HISTORY: Arnold zelda malformation s/p surgical repair, anxiety and recent on 12/17/2019 with live of baby girl six weeks ago. PAST SURGICAL HISTORY: x 1 See list. EKG = SR, HR 84 Troponins negative x 2 SIGNIFICANT LABORATORY VALUES: D-Dimer WNL. Labs WNL. Chest x-ray 01/25/2020 = WNL with clearing of pulmonary edema noted on last e Most recent echo 01/22/2020 = EF 40-45% with global hypokinesia. Mild MR. REVIEW OF SYSTEMS: CONSTITUTIONAL: Denies fever. Denies chills. EYES: Denies blurred vision. Denies blurred vision or vision changes. Denies eye pain. EARS, NOSE, MOUTH & THROAT: Denies headache. Denies sore throat. Denies ear pain Denies hemoptysis. CARDIOVASCULAR: Complain of prior chest pain. Complains of prior shortness of breath. Denies orthopnea. Denies PND. Denies palpitations. RESPIRATORY: Denies cough. Complains of prior shortness of breath. GASTROINTESTINAL: Denies abdominal pain or distention. Denies diarrhea. Denies constipation. Denies nausea. Denies vomiting. MUSCULOSKELETAL: Denies myalgias. INTEGUMENTARY: Denies pruitis. Denies rash. ENDOCRINE: Complains of fatigue. Denies weight change. Denies polydipsia. Denies polyurina Denies heat/cold intolerance. GENITOURINARY: Denies burning, hematuria or urgency with micturation. HEMATOLOGIC: Denies history of anemia. Denies bleeding. NEUROLOGIC: Denies numbness. Denies tingling. Denies weakness. PSYCHIATRIC: Denies anxiety. Denies depression. PHYSICAL EXAM GENERAL: Well developed, anxious. HEENT: Head is atraumatic, normocephalic. Pupils are equal, round. Extra ocular movements intact. Mucous membranes moist. Neck supple. No JVD. No carotid bruit. No thyromegaly. LUNGS: Clear to auscultation. No wheezes, rales or rhonchi. No chest wall tenderness on palpation or with deep breathing. HEART: Regular rate and rhythm, no rubs or gallops. S1 and S2 heard. No murmur. ABDOMEN: Abdominal exam, WNL. Bowel sounds x4 quads. Soft, non-tender, without masses, organomegaly, or abdominal aorta enlargement. EXTREMITIES/VASCULAR: Extremities have easily palpable radial, femoral, dorsalis pedis and posterior tibial pulses. No cyanosis, calf tenderness. No BLE edema. NEUROLOGIC: Patient is awake, alert and oriented x3. No focal neurologic abnormalities. FINAL IMPRESSION: 1. Atypical Chest Pain 2. cardiomyopathy 3. Shortness of breath 4. GERD PLAN: D-Dimer this am negative. Clear from a caridiology standpoint for discharge home and follow-up with Dr. Leach in 1-2 weeks. Continue same Coreg 3.125 twice daily and have pt keep a blood pressure diary. Call office with any quesitons or concerns. Nurse Practitioner note has been reviewed by the Physician. Signing provider agrees with the documented findings, assessment and plan of care. Past Medical History Past Medical History: Heart Failure Additional Past Medical History / Comment(s): chronic sinusitis, chiari History of Any Multi-Drug Resistant Organisms: None Reported Past Surgical History: Section, Tonsillectomy Additional Past Surgical History / Comment(s): benign melanoma removed. Chiari surgery in November at [place] Past Anesthesia/Blood Transfusion Reactions: No Reported Reaction Past Psychological History: Anxiety Smoking Status: Former smoker Past Alcohol Use History: None Reported Past Drug Use History: None Reported - Past Family History Mother Family Medical History: No Reported History Father Family Medical History: No Reported History Medications and Allergies Home Medications Medication Instructions Recorded Confirmed Type Ibuprofen [Motrin Ib] 200 mg PO DAILY PRN 01/25/20 01/25/20 History Magnesium Oxide [Weller] 250 mg PO DAILY 01/25/20 01/25/20 History Pnv No.95/Ferrous Fum/Folic AC 1 tab PO DAILY 01/25/20 01/25/20 History [ Multivitamin Tablet] Carvedilol [Coreg] 3.125 mg PO BID #0 01/26/20 01/25/20 Rx Omeprazole [PriLOSEC] 20 mg PO AC-BID #30 cap 01/26/20 Rx Allergies Allergy/AdvReac Type Severity Reaction Status Date / Time erythromycin base Allergy Unknown Rash/Hives Verified 01/25/20 19:39 amoxicillin [From Augmentin] AdvReac Severe Abdominal Verified 01/25/20 19:39 Pain clavulanic acid AdvReac Severe Abdominal Verified 01/25/20 19:39 [From Augmentin] Pain hydrocodone bitartrate AdvReac Severe Nausea & Verified 01/25/20 19:39 [From Vicodin] Vomiting sulfamethoxazole AdvReac Severe mouth sores Verified 01/25/20 19:39 [From Bactrim] trimethoprim [From Bactrim] AdvReac Severe mouth sores Verified 01/25/20 19:39 dextromethorphan AdvReac Intermediate Abdominal Verified 01/25/20 19:39 Pain promethazine [From Phenergan] AdvReac Intermediate Abdominal Verified 01/25/20 19:39 Pain acetaminophen [From Vicodin] AdvReac Nausea & Verified 01/25/20 19:39 Vomiting hydrocodone [From Vicodin] AdvReac Nausea & Verified 01/25/20 19:39 Vomiting metoclopramide [From Reglan] AdvReac Rash/Hives Verified 01/25/20 19:39 Physical Exam Vitals: Vital Signs Temp Pulse Pulse Resp BP BP Pulse Ox 01/26/20 08:28 98 F 88 16 121/81 99 01/26/20 02:48 98.1 F 90 18 117/87 96 01/26/20 02:42 90 01/26/20 00:52 86 18 110/88 99 01/26/20 00:26 98.1 F 90 18 117/87 96 01/25/20 22:43 87 18 114/92 99 01/25/20 22:26 96 18 107/80 97 01/25/20 20:18 98 18 100/81 97 01/25/20 18:12 98.7 F 100 18 115/83 98 Intake and Output 01/25/20 01/26/20 01/26/20 22:59 06:59 14:59 Other: Voiding Method Toilet # Voids 1 Weight 105.687 kg 105.687 kg Results 01/25/20 18:40 01/25/20 18:40 Cardiac Enzymes 01/25/20 01/25/20 01/25/20 Range/Units 18:40 18:40 21:20 AST 15 (14-36) U/L Troponin I <0.012 <0.012 (0.000-0.034) ng/mL Coagulation 01/25/20 Range/Units 18:40 PT 9.7 (9.0-12.0) sec APTT 26.3 (22.0-30.0) sec CBC 01/25/20 Range/Units 18:40 WBC 9.5 (3.8-10.6) k/uL RBC 4.61 (3.80-5.40) m/uL Hgb 13.3 (11.4-16.0) gm/dL Hct 38.8 (34.0-46.0) % Plt Count 307 (150-450) k/uL Comprehensive Metabolic Panel 01/25/20 Range/Units 18:40 Sodium 139 (137-145) mmol/L Potassium 4.4 (3.5-5.1) mmol/L Chloride 105 (98-107) mmol/L Carbon Dioxide 22 (22-30) mmol/L BUN 17 (7-17) mg/dL Creatinine 0.86 (0.52-1.04) mg/dL Glucose 98 (74-99) mg/dL Calcium 9.5 (8.4-10.2) mg/dL AST 15 (14-36) U/L ALT 20 (4-34) U/L Alkaline Phosphatase 130 H (38-126) U/L Total Protein 7.8 (6.3-8.2) g/dL Albumin 4.7 (3.5-5.0) g/dL Current Medications Generic Name Dose Route Start Last Admin Trade Name Freq PRN Reason Stop Dose Admin Carvedilol 1.563 mg 01/26/20 09:30 01/26/20 09:34 Coreg PO 1.563 mg BID-W/MEALS JOHN Administration Sodium Chloride 1,000 mls @ 20 mls/hr 01/25/20 23:15 01/26/20 01:37 Saline 0.9% IV 20 mls/hr .Q24H JOHN Administration Ibuprofen 200 mg 01/25/20 23:08 Motrin PO DAILY PRN Pain Multivi/Iron Carb/Fe Sulf/FA/Prenat 1 each 01/26/20 09:00 -U Capsule PO DAILY JOHN Naloxone HCl 0.2 mg 01/25/20 23:07 Narcan IV Q2M PRN Opioid Reversal Intake and Output 01/25/20 01/26/20 01/26/20 22:59 06:59 14:59 Other: Voiding Method Toilet # Voids 1 Weight 105.687 kg 105.687 kg 01/25/20 18:40 01/25/20 18:40 - EKG Interpretation EKG: sinus rhythm
[2020-01-26] MEDS ORDERED: METOPROLOL TARTRATE 12.5 MG TAB PO SCH (21:00)
[2020-01-26 23:25] VITALS: BP 112/79; PULSE 71; RESP 18; TEMP 97.6
== END 2020-01-26 23:11 | disposition home or self-care (01) ==
LOC: EC 18:04 → 3NCARDOBS 23:07
PROVIDERS: ADMIT Hospitalist; ATTEND Hospitalist
DX: O90.3 Peripartum cardiomyopathy (principal); R07.89 Other chest pain; R06.02 Shortness of breath; K21.9 Gastro-esophageal reflux disease without esophagitis; I50.9 Heart failure, unspecified; J32.9 Chronic sinusitis, unspecified; Z98.890 Other specified postprocedural states; F41.9 Anxiety disorder, unspecified; Z87.891 Personal history of nicotine dependence; Z85.820 Personal history of malignant melanoma of skin; Z79.899 Other long term (current) drug therapy; Z88.1 Allergy status to other antibiotic agents; Z88.5 Allergy status to narcotic agent; Z88.0 Allergy status to penicillin; Z88.2 Allergy status to sulfonamides; Z88.8 Allergy status to other drugs, medicaments and biological substances
CPT/HCPCS: 99285; 36415; 93005; 85379; 83880; 80053; 84484; 85025; 85610; 85730; 71046; G0378 ×2; U0003; S0197

== ENCOUNTER 2020-02-01 03:37 | Emergency (ER) | payer BC ==
[2020-02-01 04:01] VITALS: RESP 18
--- NOTE | 2020-02-01 04:12 | ED ---
Chest Pain HPI - General Chief Complaint: Chest Pain Stated Complaint: Heartburn, SOB Time Seen by Provider: 02/01/20 03:48 Source: patient Mode of arrival: wheelchair Limitations: no limitations - History of Present Illness Initial Comments: This patient is a 29-year-old woman who presents to be evaluated for chest pain and some dyspnea. 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 Her echocardiogram was performed here and showed approximately 40% ejection fraction. Patient was placed on beta alexus and to follow-up with cardiology. Patient was concerned because tonight she was sleeping and woke up with feeling short of breath and also having chest pain. She states that over time the pains of been in different locations in her chest. Tonight it was substernal and left-sided. She is not able to characterize the pain well. There is currently no pain. She was not having diaphoresis, nausea or vomiting. MD Complaint: chest pain Onset/Timin -: hour(s) Onset: during rest, awoke with symptoms Pain Location: substernal, left chest Pain Radiation: none Quality: dull Consistency: intermittent Improves With: nothing Worsens With: nothing Treatments Prior to Arrival: none - Related Data Home Medications Medication Instructions Recorded Confirmed Ibuprofen [Motrin Ib] 200 mg PO DAILY PRN 01/25/20 01/25/20 Magnesium Oxide [Weller] 250 mg PO DAILY 01/25/20 01/25/20 Pnv No.95/Ferrous Fum/Folic AC 1 tab PO DAILY 01/25/20 01/25/20 [ Multivitamin Tablet] Metoprolol Tartrate [Lopressor] 12.5 mg PO BID 01/26/20 01/26/20 Previous Rx's Medication Instructions Recorded Omeprazole [PriLOSEC] 20 mg PO AC-BID #30 cap 01/26/20 Allergies Allergy/AdvReac Type Severity Reaction Status Date / Time erythromycin base Allergy Unknown Rash/Hives Verified 02/01/20 04:01 amoxicillin [From Augmentin] AdvReac Severe Abdominal Verified 02/01/20 04:01 Pain clavulanic acid AdvReac Severe Abdominal Verified 02/01/20 04:01 [From Augmentin] Pain hydrocodone bitartrate AdvReac Severe Nausea & Verified 02/01/20 04:01 [From Vicodin] Vomiting sulfamethoxazole AdvReac Severe mouth sores Verified 02/01/20 04:01 [From Bactrim] trimethoprim [From Bactrim] AdvReac Severe mouth sores Verified 02/01/20 04:01 dextromethorphan AdvReac Intermediate Abdominal Verified 02/01/20 04:01 Pain promethazine [From Phenergan] AdvReac Intermediate Abdominal Verified 02/01/20 04:01 Pain acetaminophen [From Vicodin] AdvReac Nausea & Verified 02/01/20 04:01 Vomiting hydrocodone [From Vicodin] AdvReac Nausea & Verified 02/01/20 04:01 Vomiting metoclopramide [From Reglan] AdvReac Rash/Hives Verified 02/01/20 04:01 Review of Systems ROS Statement: Those systems with pertinent positive or pertinent negative responses have been documented in the HPI. ROS Other: All systems not noted in ROS Statement are negative. Constitutional: Denies: fever, chills Respiratory: Reports: as per HPI, dyspnea. Denies: cough, wheezes, hemoptysis Cardiovascular: Reports: as per HPI, chest pain. Denies: palpitations, orthopnea, edema, syncope Gastrointestinal: Denies: abdominal pain, nausea, vomiting Genitourinary: Denies: dysuria, hematuria Musculoskeletal: Denies: back pain Skin: Denies: rash Neurological: Denies: headache, weakness, numbness EKG Findings - EKG Results: EKG: interpreted by NARAYAN, sinus rhythm (Rate 80 bpm), normal axis, normal QRS, normal ST/T, no acute changes - ND, Pacemaker, Normal: Normal tracing: normal tracing Past Medical History Past Medical History: Heart Failure Additional Past Medical History / Comment(s): chronic sinusitis, chiari , preeclampsia History of Any Multi-Drug Resistant Organisms: None Reported Past Surgical History: Section, Tonsillectomy Additional Past Surgical History / Comment(s): benign melanoma removed. Chiari surgery in November at [facility] Past Anesthesia/Blood Transfusion Reactions: No Reported Reaction Past Psychological History: Anxiety Smoking Status: Former smoker Past Alcohol Use History: None Reported Past Drug Use History: None Reported - Past Family History Mother Family Medical History: No Reported History Father Family Medical History: No Reported History General Exam Limitations: no limitations General appearance: alert, in no apparent distress Head exam: Present: atraumatic, normocephalic Eye exam: Present: normal appearance. Absent: scleral icterus, conjunctival injection ENT exam: Present: normal oropharynx Neck exam: Present: normal inspection Respiratory exam: Present: normal lung sounds bilaterally, chest wall tenderness. Absent: respiratory distress, wheezes, rales, rhonchi, stridor Cardiovascular Exam: Present: regular rate, normal rhythm, normal heart sounds. Absent: systolic murmur, diastolic murmur, rubs, gallop GI/Abdominal exam: Present: soft. Absent: distended, tenderness, guarding, rebound, rigid, mass Extremities exam: Present: normal inspection, normal capillary refill. Absent: pedal edema, calf tenderness Back exam: Present: normal inspection. Absent: CVA tenderness (R), CVA tenderness (L) Neurological exam: Present: alert Skin exam: Present: warm, dry, intact, normal color. Absent: rash Course Vital Signs 02/01/20 03:58 Temperature 98.3 F Pulse Rate 92 Respiratory 18 Rate Blood Pressure 111/81 O2 Sat by Pulse 96 Oximetry Disposition Clinical Impression: Chest pain Disposition: HOME SELF-CARE Condition: Good Instructions (If sedation given, give patient instructions): Chest Pain (ED) Is patient prescribed a controlled substance at d/c from ED?: No Referrals: Rogers Mcdonald DO [Primary Care Provider] - 1-2 days
[2020-02-01 04:41] LABS: Basophils % (A) 0 %; Eosinophils # (A) 0.2 k/uL (0-0.7); Eosinophils % (A) 2 %; HCT 39.6 % (34.0-46.0); HGB 13.3 gm/dL (11.4-16.0); Lymphocytes # (A) 2.7 k/uL (1.0-4.8); Lymphocytes % (A) 31 %; MCH 28.5 pg (25.0-35.0); MCHC 33.6 g/dL (31.0-37.0); MCV 84.8 fL (80.0-100.0); Mean Platelet Volume 7.8; Monocytes # (A) 0.5 k/uL (0-1.0); Monocytes % (A) 5 %; Neutrophils # (A) 5.4 k/uL (1.3-7.7); Neutrophils % (A) 60 %; Platelet Count 290 k/uL (150-450); RBC 4.67 m/uL (3.80-5.40); RDW 14.1 % (11.5-15.5)
--- NOTE | 2020-02-01 04:50 | XR ---
EXAMINATION TYPE: XR chest 2V DATE OF EXAM: 02/01/2020 COMPARISON: 01/25/2020 HISTORY: Chest pain TECHNIQUE: FINDINGS: Heart is normal. Lungs are clear of infiltrate. There is no heart failure. Costophrenic ang les are clear. Bony thorax is intact. IMPRESSION: No active cardiopulmonary disease. Normal heart. No change.
[2020-02-01 04:52] LABS: ALT 22 U/L (4-34); AST 15 U/L (14-36); African American GFR (CKD) >90 (>60 ml/min/1.73 sqM); Albumin 4.5 g/dL (3.5-5.0); Alkaline Phosphatase 117 U/L (38-126); Amylase 64 U/L (30-110); Anion Gap 9 mmol/L; Blood Urea Nitrogen 22 mg/dL (7-17); Calcium 9.6 mg/dL (8.4-10.2); Carbon Dioxide 26 mmol/L (22-30); Chloride 103 mmol/L (98-107); Glucose 93 mg/dL (74-99); Magnesium 1.9 mg/dL (1.6-2.3); Non-African American GFR(CKD) 87 (>60 ml/min/1.73 sqM); Potassium 4.3 mmol/L (3.5-5.1); Sodium 138 mmol/L (137-145); Total Bilirubin 0.3 mg/dL (0.2-1.3); Total Protein 7.4 g/dL (6.3-8.2)
[2020-02-01 04:54] LABS: D-Dimer 0.49 mg/L FEU (<0.60); INR 0.9 (<1.2); Partial Thromboplastin Time 26.7 sec (22.0-30.0); Prothrombin Time 9.7 sec (9.0-12.0)
[2020-02-01] MEDS ORDERED: MAG HYDROX/AL HYDROX/SIMETH 30 ML, HYOSCYAMINE ELIXIR 10 ML, LIDOCAINE VISCOUS 2% 10 ML PO STA ×3 (05:41)
[2020-02-01 05:55] VITALS: BP 109/73; PULSE 71
[2020-02-01] MEDS ORDERED: PANTOPRAZOLE 40 MG TABLET PO STA (06:19)
[2020-02-01 06:31] VITALS: TEMP 97.7
== END 2020-02-01 06:31 | disposition home or self-care (01) ==
LOC: EC 03:37
DX: R07.9 Chest pain, unspecified (principal); R06.02 Shortness of breath; I50.9 Heart failure, unspecified; Z87.891 Personal history of nicotine dependence; Z88.0 Allergy status to penicillin; Z88.8 Allergy status to other drugs, medicaments and biological substances; Z88.5 Allergy status to narcotic agent; Z88.1 Allergy status to other antibiotic agents; Z88.2 Allergy status to sulfonamides; Z86.79 Personal history of other diseases of the circulatory system
CPT/HCPCS: 36415; 71046; 80053; 82150; 83690; 83735; 83880; 84484; 85025; 85379; 85610; 85730; 93005; 99285